=== PATIENT | male | born 1990 | race Two or more races ===

== ENCOUNTER 2021-08-20 21:10 | Emergency (ER) | payer MEDICARE, SELFPAY ==
[2021-08-20 21:24] VITALS: BP 112/70; BP 132/77; PULSE 84; PULSE 90; RESP 16; TEMP 36.5; O2SAT 96; BMI 30.5
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
[2021-08-20] MEDS: Naloxone HCl Nasal TAKE HOME 4 MG SPRAY NOSTRILALT (21:47)
== END 2021-08-20 21:47 | disposition home or self-care (01) ==
LOC: HO.ED 21:42
PROVIDERS: Emergency Provider Internal Medicine
DX: T40.1X1A Poisoning by heroin, accidental (unintentional), initial encounter (principal); Y92.9 Unspecified place or not applicable; F11.19 Opioid abuse with unspecified opioid-induced disorder; Z71.51 Drug abuse counseling and surveillance of drug abuser
CPT/HCPCS: 99284; 99285

== ENCOUNTER 2022-02-04 03:51 | Emergency (ER) | payer MEDICARE, SELFPAY ==
--- NOTE | ~2022-02-04 | CT_ITS ---
EXAMINATION: CT HEAD WITHOUT CONTRAST CLINICAL INFORMATION: Forehead hematoma with abrasion. COMPARISON: Head CT scan dated 03/02/2019. TECHNIQUE: Contiguous axial imaging was performed from the skull base to vertex without intravenous administration of contrast. Coronal and sagittal reformatted images were obtained. This CT examination was performed using dose optimization techniques as appropriate, variously including the following: *Automated exposure control *Adjustment of mA and/or kV according to patient size (this includes techniques or standardized protocols for targeted exams where dose is matched to indication/reason for exam; i.e. extremities or head) *Use of iterative reconstruction technique DLP: 818 mGy-cm FINDINGS: The cortical sulci are normal. The lateral ventricles are symmetrical. The third and fourth ventricles are in their normal midline position. The basilar and prepontine cisterns are unremarkable. There is no acute intra or extracerebral abnormality. There is no mass effect or midline shift. Sections through the bony calvarium and facial bones show chronic posttraumatic/surgical changes without definitive acute abnormality. The paranasal sinuses show mild to moderate mucosal thickening in the visualized ethmoid sinuses. There is a small air-fluid level in the visualized left maxillary sinus. Sphenoid sinuses are clear. The bony orbits and orbital contents are unremarkable. Moderate anterior nasal septal deviation, apex of the right. CT/CT head/brain wo IV con IMPRESSION: 1. No acute intracranial pathology. 2. Chronic posttraumatic postsurgical changes in the facial bones without definitive acute abnormality. 3. Mild to moderate inflammatory changes in the visualized paranasal sinuses as detailed above
[2022-02-04 04:06] VITALS: BP 139/90; BP 140/89; PULSE 88; PULSE 97; RESP 16; TEMP 36.7; O2SAT 99; BMI 32.1
[2022-02-04 07:12] VITALS: BP 143/93; PULSE 61; RESP 16; TEMP 36.6
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
--- NOTE | 2022-02-04 08:22 | PC.NURSE ---
pt very drowsy as well, awakes to very loud voice command and some painful stimuli, pt does have a large hematoma/abrasion to the middle of the forehead. pt denies drug use but states only using marijuana but when pt was changed over into hospital attire heroin and numerous different pills where found on the pt. pt is in police custody and the police is asking not to toss the paraphernalia that they need it.
[2022-02-04 10:52] VITALS: BP 117/78; PULSE 69; RESP 16; O2SAT 97
[2022-02-04] MEDS: Bacitracin Oint 14 GM TUBE 1 APPL TOPICAL (11:24)
--- NOTE | 2022-02-04 12:42 | PC.NURSE ---
pt discharged in police custody.
== END 2022-02-04 12:45 ==
PROVIDERS: Emergency Provider Emergency Medicine Emergency Medical Services
DX: R51.9 Headache, unspecified (principal); R07.89 Other chest pain; F11.10 Opioid abuse, uncomplicated
CPT/HCPCS: 70450; 99284

== ENCOUNTER 2023-02-04 14:36 | Inpatient (IN) | payer MEDICARE, SELFPAY ==
[2023-02-04] VITALS (21 sets, daily range): BP systolic 91–190; BP diastolic 57–123; PULSE 100–156; RESP 22–46; TEMP 31.1–38; O2SAT 78–95; BMI 39.5; BMI 41.4
--- NOTE | 2023-02-04 | ECG_ITS ---
Test Reason : tachycardia Blood Pressure : / mmHG Vent. Rate : 128 BPM Atrial Rate : 128 BPM P-R Int : 134 ms QRS Dur : 082 ms QT Int : 306 ms P-R-T Axes : 066 073 013 degrees QTc Int : 446 ms Sinus tachycardia Otherwise normal ECG No previous ECGs available Referred By: Shruthi Brito Electronically Signed By:HANNAH VILLA
--- NOTE | ~2023-02-04 | XR_ITS ---
EXAMINATION: XR CHEST CLINICAL INFORMATION: Hypoxia. COMPARISON: Chest radiograph 02/04/2023. TECHNIQUE: Frontal view of the chest was obtained. FINDINGS: The endotracheal tube terminates at 6 cm above the celeste. Enteric tube courses into the abdomen and terminates outside of the field of view. Unchanged cardiomediastinal silhouette. Increased focal airspace opacities projecting over the right middle/lower lung. No pleural effusion or pneumothorax. No acute osseous findings. Visualized upper abdomen is within normal limits. XR/XR chest 1V IMPRESSION: 1. The endotracheal tube terminates at 6 cm above the celeste. Recommend repositioning. 2. Increased focal airspace opacities in the right middle/lower lung, concerning for aspiration, pneumonia or atelectasis. The report will be called to the ordering clinician by a [facility] Physician Brand Communications Manager.
--- NOTE | ~2023-02-04 | XR_ITS ---
EXAMINATION: XR CHEST CLINICAL INFORMATION: Post cardiac arrest COMPARISON: Previous day TECHNIQUE: Frontal view of the chest was obtained. FINDINGS: Endotracheal tube terminates 2.9 cm above the celeste. Enteric tube courses through the stomach. Diffuse bilateral patchy airspace opacities predominating in the lower lungs bilaterally with improving aeration compared to prior. No pleural effusion or pneumothorax. Normal heart size. Pulmonary venous congestion. No acute osseous abnormalities. XR/XR chest 1V IMPRESSION: * Endotracheal tube terminates 2.9 cm above the celeste. * Diffuse bilateral patchy airspace opacities with improving aeration compared to prior.
--- NOTE | ~2023-02-04 | XR_ITS ---
EXAMINATION: XR CHEST CLINICAL INFORMATION: Endotracheal tube placement COMPARISON: Chest radiograph 02/05/2023 2:15 PM TECHNIQUE: Frontal view of the chest was obtained. FINDINGS: An endotracheal tube terminates 3 cm superior to the celeste. Enteric tube courses in projection with the stomach and terminates in the region of the proximal stomach. Low lung volumes are present. No pneumothoraces visualized. Right pulmonary base focal airspace opacity is again noted. Mild left base airspace opacity is newly identified with obscuration of the left hemidiaphragmatic margin. The heart size is normal. XR/XR chest 1V IMPRESSION: 1. Endotracheal tube terminating 3 cm superior to the celeste. 2. Enteric tube terminating within the proximal stomach. 3. Low lung volumes. 4. Right base airspace disease unchanged compared with 02/05/2023 2:15 PM. Newly identified left base airspace disease which may represent atelectasis.
--- NOTE | ~2023-02-04 | XR_ITS ---
EXAMINATION: XR CHEST CLINICAL INFORMATION: Hypoxia COMPARISON: Chest x-ray February 10, 2023 TECHNIQUE: Frontal portable view of the chest was obtained. 1234 hours FINDINGS: Tubes and lines: 1. Endotracheal tube 4 cm both celeste. 2. Enteric catheter passes below diaphragm into the stomach. Catheter tip below lower margin of the film. 3. EKG leads over the chest. There is artifact over the chest from the [place] mat. Patchy parenchymal airspace opacities in the lungs bilaterally similar severity February 10, 2023 chest x-ray. XR/XR chest 1V IMPRESSION: 1. Endotracheal tube 4 cm both celeste. 2. Enteric catheter passes below diaphragm into the stomach. Catheter tip below lower margin of the film. 3. Persistent patchy bilateral airspace opacities.
--- NOTE | ~2023-02-04 | XR_ITS ---
EXAMINATION: XR CHEST CLINICAL INFORMATION: Dialysis catheter placement COMPARISON: Chest 02/13/2023. TECHNIQUE: Frontal view of the chest was obtained. FINDINGS: There is a new right dialysis catheter its tip in upper mediastinum. Endotracheal tube is 3.7 cm above the celeste. Enteric tube tip is below diaphragm. The lungs are expanded with patchy opacities in both lung bases similar to previous study. Heart size and pulmonary vascularity is normal. No gross bony abnormality. XR/XR chest 1V IMPRESSION: 1. New right dialysis catheter tip is in right upper mediastinum. 2. No change in the endotracheal tube and enteric tube. 3. No change in bibasilar patchy opacities.
--- NOTE | ~2023-02-04 | XR_ITS ---
EXAMINATION: XR CHEST CLINICAL INFORMATION: Line placement COMPARISON: Chest radiograph from 02/09/2023 TECHNIQUE: Frontal view of the chest was obtained. FINDINGS: Interval placement of enteric tube coursing below left hemidiaphragm terminating in the stomach, its distal tip is incompletely visualized. Endotracheal tube approximately 3.7 cm from the level of the celeste. Right chest wall pacer pad. Redemonstration of patchy radiopacities in the visualized portions of the bilateral lung padgett. Bilateral lung apices are incompletely visualized. No large pneumothorax. Trachea is midline. Cardiac mediastinal silhouette is stable. Osseous structures are intact. Soft tissues are unremarkable. XR/XR chest 1V IMPRESSION: 1. Interval placement of enteric tube coursing below left hemidiaphragm terminating in the stomach, its distal tip is incompletely visualized. 2. Endotracheal tube approximately 3.7 cm from the level of the celeste. 3. Right chest wall pacer pad. 4. Redemonstration of patchy radiopacities in the visualized portions of the bilateral lung padgett. 5. Bilateral lung apices are incompletely visualized.
--- NOTE | ~2023-02-04 | US_ITS ---
EXAMINATION: US VENOUS WITH DOPPLER UPPER EXTREMITY, RIGHT CLINICAL INFORMATION: Swelling COMPARISON: None available. TECHNIQUE: Ultrasound of the upper extremity is performed using compression sonography and color and pulse Doppler flow with assessment of augmentation of flow. There is also imaging and Doppler assessment of the jugular and subclavian veins. Spectral analysis with color-flow imaging is performed. FINDINGS: The right internal jugular, subclavian, axillary and radial and ulnar veins in the forearm are patent. There is no evidence of DVT. There is superficial thrombophlebitis in the cephalic and basilic veins. There is nearly occlusive thrombus in the basilic vein and occlusive thrombus in the cephalic vein. US/US venous duplex UE RT IMPRESSION: No DVT demonstrated in the right upper extremity. Extensive superficial thrombophlebitis of right cephalic and basilic veins. Findings will be communicated by the [facility] ground water technician
--- NOTE | ~2023-02-04 | CT_ITS ---
EXAMINATION: CT HEAD WITHOUT CONTRAST CT FACIAL BONES WITHOUT CONTRAST CT CERVICAL SPINE WITHOUT CONTRAST CLINICAL INFORMATION: Fall with pain. Trauma. COMPARISON: There are no prior studies available for comparison. TECHNIQUE: Multidetector CT imaging of the head, facial bones and cervical spine was performed without the use of intravenous contrast. Coronal and sagittal reformatted images were generated at the technologist workstation. DLP: 2550 mGy-cm. FINDINGS: CT head: There is no evidence of acute intracranial hemorrhage or territorial infarction. No abnormal mass-effect or midline shift is seen. [place] to white matter differentiation is well preserved. No extra-axial fluid collections are identified. The ventricles and sulci normal in size. Brain parenchymal attenuation is unremarkable. There is slight irregularity of the nasal bones, and there are slightly deviated to the left. There are sequelae of prior bifrontal craniotomies. There is a bony defect in the anterior frontal bone superior to the frontal sinuses; these findings appear chronic. There are no large scalp contusions or hematomas. The mastoid air cells are well-aerated. There is mucoperiosteal thickening in the left maxillary and right ethmoid sinuses. CT facial bones: There is no acute maxillofacial fracture. The mandible and mandibular condyles are intact. The pterygoid plates, zygomatic arches and lamina papyracea are intact. The bony orbital rims are intact. The nasal bones are deviated to the right, without significant soft tissue swelling and these findings may be sequelae of remote trauma. There is opacification of the left maxillary and right ethmoid sinuses. No air-fluid levels are seen. There is opacification of the ostiomeatal complexes. There is a sigmoid configuration of the nasal septum, deviated to the right superior anteriorly and toward the left more posteriorly and inferiorly. There is a moderate left-sided bony nasal septal spur. The ethmoid roofs are symmetric. The carotid canals are normally covered by bone. There is a severely carious right maxillary 1st premolar tooth with periapical and periodontal disease. No dental fractures are demonstrated. There are small lymph nodes at multiple levels in the neck bilaterally. Otherwise, the malar, submandibular and submental soft tissues are unremarkable. The mastoid air cells and visualized middle ear cavities are well-aerated. The intraorbital structures are normal. The TMJs are unremarkable. CT cervical spine: Images are degraded by patient motion artifact. There is a dextroscoliosis. There is straightening of the cervical lordosis which may be due to positioning or muscle spasm. There is normal alignment of the facets. There is mild narrowing of intervertebral disc height anteriorly at C5-C6. There are no compression fractures. The lateral masses of C1 and C2 are normally aligned and the dens is intact. The visualized lung apices are well-aerated. The prevertebral soft tissues are unremarkable. The thyroid gland appears normal. CT/CT cervical spine wo IV con IMPRESSION: CT Head: 1. There are no acute bleeds or territorial infarcts. No masses are demonstrated. 2. There are sequelae of prior bifrontal craniotomies. There is a bony defect in the anterior frontal bone superior to the frontal sinuses, consistent with postoperative changes. CT Maxillofacial: 1. There are no acute fractures or subluxations. There is irregularity of the nasal bones, most consistent with sequelae of chronic trauma. 2. There is opacification of the left maxillary and right ethmoid sinuses. 3. There is a sigmoid configuration of the nasal septum with a left-sided bony nasal septal spur. CT Cervical Spine: 1. There are no acute fractures or subluxations. 2. There is straightening of the cervical lordosis which may be due to positioning or muscle spasm. 3. There is mild narrowing of intervertebral disc height at C5-C6.
--- NOTE | ~2023-02-04 | CT_ITS ---
EXAMINATION: CT abdomen pelvis wo IV con CLINICAL INFORMATION: Reason for Exam BACTEREMIA RENAL FAILURE, CIRRHOSIS COMPARISON: Prior CT 2008 TECHNIQUE: Multidetector volumetric imaging was performed from the superior aspect of the liver through the pubic symphysis , noncontrasted study. Sagittal and coronal reformatted images were obtained on the technologist's workstation. This CT examination was performed using dose optimization techniques as appropriate, variously including the following: *Automated exposure control *Adjustment of mA and/or kV according to patient size (this includes techniques or standardized protocols for targeted exams where dose is matched to indication/reason for exam; i.e. extremities or head) *Use of iterative reconstruction technique DLP: 2758 mGy-cm FINDINGS: LOWER THORAX: There are bilateral multiple areas of dense consolidation at the lung bases left more than right presumably pneumonia. No significant pleural effusion. HEPATOBILIARY: Heterogeneous liver texture with nodular surface suggesting liver parenchymal disease possibly liver cirrhosis. Evaluation of the liver is limited on this noncontrast CT. GALLBLADDER: Gallbladder unremarkable. SPLEEN: Spleen is normal in size. PANCREAS: No focal mass or ductal dilatation. STOMACH AND GASTROINTESTINAL TRACT: Nasogastric tube and place. There is no bowel distention or thickening. Appendix not visualized, no secondary signs in the abdomen and pelvis to suggest appendicitis. There is a rectal tube in place. ADRENALS: No adrenal nodules. KIDNEYS/URETERS: Mild perinephric fat stranding on the left kidney, although nonspecific could be indicative of underlying nephritis. URINARY BLADDER: Urinary bladder is decompressed unopacified, the wall of which is thickened, there is also free air within the bladder, which could be from instrumentation, cannot rule out cystitis. PELVIC VISCERA: There is a balloon catheter in the rectum. PERITONEUM: No free air or fluid. LYMPH NODES: No lymphadenopathy. VASCULAR:Abdominal aorta normal in size, no aneurysm found. BONES, ABDOMINAL WALL AND SOFT TISSUES: Age-appropriate changes of the spine and skeletal system, no destructive osteolytic or osteosclerotic bone lesion found CT/CT abdomen pelvis wo IV con IMPRESSION: * Bilateral patchy consolidation with air bronchogram at lung bases suggesting pneumonias. * Mild perinephric fat stranding surrounding the left kidney, although nonspecific could be indicative of underlying nephritis, assessment for possible renal abscess is limited due to lack of IV contrast.. * Urinary bladder is decompressed, the wall of which is thickened, there is also free air within the bladder, which could be from instrumentation, cannot rule out cystitis. * Heterogeneous liver texture with nodular surface suggesting liver parenchymal disease possibly liver cirrhosis. This critical result was discussed with Dr Anthony Taylor by telephone at 02/17/2023 7:36 PM and it was ascertained that the content and urgency of the report was understood at the time of direct communication.
--- NOTE | ~2023-02-04 | XR_ITS ---
EXAMINATION: XR CHEST CLINICAL INFORMATION: CVC placement COMPARISON: CT chest earlier today, Chest radiograph 02/13/2023 TECHNIQUE: Frontal view of the chest was obtained. FINDINGS: Diffuse interstitial infiltrates are again seen throughout the lungs. The heart is mildly enlarged. Small pleural effusions may be present. ET tube present with tip 3.5 cm above the celeste. A right IJ catheter remains in place with its tip in the proximal SVC. The prior studies, a new left IJ catheter is present with its tip in the proximal right atrium. An NG tube has its tip below the diaphragm, the tip not well seen. XR/XR chest 1V IMPRESSION: 1. New left IJ catheter with tip in the proximal right atrium. No pneumothorax. 2. ET tube and right IJ catheter in good position. 3. Diffuse interstitial infiltrates without change.
--- NOTE | ~2023-02-04 | CT_ITS ---
EXAMINATION: CT HEAD WITHOUT CONTRAST CLINICAL INFORMATION: Encephalopathy. COMPARISON: 02/04/2023 TECHNIQUE: Contiguous axial imaging was performed from the skull base to vertex without intravenous administration of contrast. This CT examination was performed using dose optimization techniques as appropriate, variously including the following: *Automated exposure control *Adjustment of mA and/or kV according to patient size (this includes techniques or standardized protocols for targeted exams where dose is matched to indication/reason for exam; i.e. extremities or head) *Use of iterative reconstruction technique DLP: 973.2 mGy-cm FINDINGS: The lateral, third and fourth ventricles are normally outlined. The cortical sulci and basal cisterns are normally outlined as well. There is no acute territorial defect, hemorrhage or midline shift. The extra-axial spaces are unremarkable. Calvarium: A frontal craniotomy is again noted with multiple inferior frontal bone fragments similar to prior. Maxillofacial sinuses and mastoids: There is bilateral mastoid opacification. There also appears to be bilateral right middle ear opacities. There is a lobular left maxillary sinus opacity and bilateral ethmoid sinus mucosal thickening. There is a small posterior sphenoid sinus opacity. The patient is intubated. There is a small upper nasopharyngeal opacity. CT/CT head/brain wo IV con IMPRESSION: No acute intracranial abnormality. Bilateral mastoid and apparent middle ear opacities essentially new compared to prior. Correlation for significance is needed.
--- NOTE | ~2023-02-04 | XR_ITS ---
EXAMINATION: XR CHEST CLINICAL INFORMATION: ETT placement. COMPARISON: None available. TECHNIQUE: Frontal view of the chest was obtained. FINDINGS: The lungs are hypoexpanded with patchy opacity seen throughout both lungs especially middle and lower lobes. This is better visualized on the earlier CT chest exam.. The heart size is normal. Pulmonary vascularity is slightly prominent. Tip of endotracheal tube is 4.7 cm above the celeste. XR/XR chest 1V IMPRESSION: 1. Bilateral patchy opacity in both lungs especially middle and lower lobes consistent with infiltrates. This is better visualized on earlier CT chest from today. 2. Tip of endotracheal tube is 4.7 cm above the celeste.
--- NOTE | ~2023-02-04 | CT_ITS ---
EXAMINATION: CT CHEST WITHOUT CONTRAST CLINICAL INFORMATION: Fever question pneumonia COMPARISON: None available. TECHNIQUE: Multidetector volumetric CT imaging of the chest was done. Axial MIP volume rendering provided. Sagittal and coronal reformatted images were obtained. This CT examination was performed using dose optimization techniques as appropriate, variously including the following: *Automated exposure control *Adjustment of mA and/or kV according to patient size (this includes techniques or standardized protocols for targeted exams where dose is matched to indication/reason for exam; i.e. extremities or head) *Use of iterative reconstruction technique DLP: 518 mGy-cm FINDINGS: LUNGS/PLEURA: Respiratory motion artifacts limits evaluation. Trace pneumothorax along the anterior aspect left lung. Groundglass and patchy consolidative radiopacities throughout the bilateral lung padgett suggesting infectious/inflammatory etiology versus ARDS. Evaluation for nodules is limited secondary to respiratory motion artifact. Endotracheal tube approximately 3.2 cm from the lung. Central airways are patent. No large pleural effusion. MEDIASTINUM: Heart is not enlarged. No pericardial effusion. Aorta is nonaneurysmal. Main pulmonary artery is not enlarged. No enlarged lymph nodes per size criteria. Right-sided central venous catheter via the internal jugular vein terminating in the proximal SVC. Enteric tube coursing through the thoracic esophagus terminating in the stomach. No coronary artery calcifications noted. Visualized portions of the thyroid are unremarkable. AXILLA: No lymphadenopathy. UPPER ABDOMEN: Enteric tube terminates in the stomach. Splenule measuring 1.6 cm. OSSEOUS STRUCTURES: Unremarkable. CT/CT chest wo IV con IMPRESSION: 1. Respiratory motion artifacts limits evaluation. 2. Trace pneumothorax along the anterior aspect left lung. 3. Groundglass and patchy consolidative radiopacities throughout the bilateral lung padgett suggesting infectious/inflammatory etiology versus ARDS. 4. Endotracheal tube approximately 3.2 cm from the lung. 5. Right-sided central venous catheter via the internal jugular vein terminating in the proximal SVC. 6. Enteric tube coursing through the thoracic esophagus terminating in the stomach. 7. Splenule measuring 1.6 cm. This critical result was discussed with Cristina Ochoa by telephone on 02/16/2023 4:40 PM and it was ascertained that the content and urgency of the report was understood at the time of direct communication.
--- NOTE | ~2023-02-04 | XR_ITS ---
EXAMINATION: XR CHEST CLINICAL INFORMATION: Intubated COMPARISON: Previous day TECHNIQUE: Frontal view of the chest was obtained. FINDINGS: The tracheal tube terminates 7.5 cm above the celeste. Right internal jugular central venous introducer terminates in the distal right brachiocephalic vein. Left internal jugular central venous catheter terminates in the mid SVC. No appreciable pneumothorax on the current exam. Persistent patchy opacities throughout both lungs particularly at the left lung base showing interval improvement. No large pleural effusion. Normal cardiomediastinal silhouette. XR/XR chest 1V IMPRESSION: * Endotracheal tube terminates 7.5 cm above the celeste. * Improving bilateral airspace opacities. * No appreciable pneumothorax on the current exam.
--- NOTE | ~2023-02-04 | CT_ITS ---
EXAMINATION: CT CHEST WITH CONTRAST CLINICAL INFORMATION: Fall, chest trauma. COMPARISON: None available. TECHNIQUE: Multidetector volumetric CT imaging of the chest was obtained after the administration of 50 mL of Omnipaque 350 intravenous contrast without immediate adverse reactions. Axial MIP volume rendering provided. Sagittal and coronal reformatted images were obtained. This CT examination was performed using dose optimization techniques as appropriate, variously including the following: *Automated exposure control *Adjustment of mA and/or kV according to patient size (this includes techniques or standardized protocols for targeted exams where dose is matched to indication/reason for exam; i.e. extremities or head) *Use of iterative reconstruction technique DLP: 1431 mGy-cm FINDINGS: There is continues breathing artifact limiting evaluation. 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 LUNGS: There is diffuse airspace disease involving both lower lobes, upper lobes, right middle lobe and lingula. MEDIASTINUM: The thyroid lobes are symmetric and normal. The central trachea and bronchi are widely patent. The heart size and great vessels are normal caliber. No abnormal size mediastinal lymph nodes or mass seen. There is no pericardial effusion. PLEURA: There is no pleural effusion. No pleural mass or thickening. AXILLA: No lymphadenopathy. UPPER ABDOMEN: Visualized liver, spleen, pancreas and bilateral adrenal glands are unremarkable. OSSEOUS STRUCTURES: Unremarkable. CT/CT chest w IV con IMPRESSION: Multilobar bilateral infiltrates. Fleischner guidelines were followed.
--- NOTE | ~2023-02-04 | XR_ITS ---
EXAMINATION: XR CHEST 9:21 AM CLINICAL INFORMATION: Hypoxia COMPARISON: 02/06/2023 TECHNIQUE: AP portable upright view of the chest was obtained. FINDINGS: Since the prior examination, endotracheal tube and nasogastric tube have been removed. There are newly developed bilateral fluffy airspace opacities. No pleural effusions are detected. The cardiac silhouette is magnified by the AP position. XR/XR chest 1V IMPRESSION: 1. Interval extubation with newly developed fluffy bilateral airspace opacities. Reexpansion pulmonary edema, ARDS, pulmonary hemorrhage, bilateral pneumonia are to be considered.
--- NOTE | ~2023-02-04 | XR_ITS ---
EXAMINATION: XR CHEST CLINICAL INFORMATION: Hypoxia COMPARISON: 11/12/2022 TECHNIQUE: Frontal view of the chest was obtained. FINDINGS: ET tube present 3.6 cm above the celeste. NG tube with its tip below the diaphragm beyond the field. Diffuse airspace disease is present, slightly worse when compared to the prior study. No pneumothorax. Small pleural effusions could be present. XR/XR chest 1V IMPRESSION: ET tube 3.6 cm above the celeste. Slight worsening of diffuse airspace disease.
--- NOTE | ~2023-02-04 | XR_ITS ---
EXAMINATION: XR CHEST CLINICAL INFORMATION: Assess pneumothorax COMPARISON: Previous x-ray most recent from yesterday TECHNIQUE: Frontal view of the chest was obtained. FINDINGS: Right jugular line projects over SVC. Left jugular line projects over SVC. Endotracheal tube tip 3 cm above the celeste. These gastric tube projects over stomach, tip not seen. Bilateral multilobar Airspace disease probably representing pneumonia. Question small left pneumothorax overlying the posterior third rib. No pleural effusion. XR/XR chest 1V IMPRESSION: Satisfactory position of support line and tubes. Question Small left pneumothorax. No change in bilateral multilobar airspace disease.
--- NOTE | ~2023-02-04 | XR_ITS ---
EXAMINATION: XR CHEST CLINICAL INFORMATION: Intubation, decreased oxygenation COMPARISON: Earlier on 02/09/2023 TECHNIQUE: Frontal view of the chest was obtained. FINDINGS: The tip of an endotracheal tube is in the midthoracic trachea. Bilateral fluffy airspace opacities are becoming more confluent in the mid and lower lung zones and the left upper lung zone. The cardiac silhouette is magnified by the AP position. XR/XR chest 1V IMPRESSION: 1. Endotracheal tube in the midthoracic trachea. 2. Increased confluence of bilateral airspace opacities, either on the basis of pulmonary edema, ARDS, bilateral pneumonia, hemorrhage, etc.
[2023-02-04] MEDS: LORazepam 2 MG/ML VIAL IVPUSH ×3 (14:58→18:12)
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
[2023-02-04] MEDS: Midazolam HCl/PF 2 MG/2 ML VIAL 4 MG IVPUSH (15:05)
[2023-02-04] MEDS: levETIRAcetam in NaCl (iso-os) 1,500 MG/100 ML PIGGYBACK 400 MG IV (15:20)
[2023-02-04 15:39] LABS: MANUAL DIFF FLAG NO
[2023-02-04 15:43] LABS: Basophils Percent Auto 0.1 % (0-2); Hematocrit 46.2 % (42.0-52.0); Imm Gran Abs Auto 0.14 X10*3/uL (0.00-0.03); Imm Gran Pct Auto 0.7 % (0.0-0.4); Lymphocytes Absolute Auto 1.4 X10*3/uL (1.2-4.9); Lymphocytes Percent Auto 6.9 % (20-40); Mean Corpuscular HGB Conc 32.5 g/dl (31.0-36.0); Mean Corpuscular Hemoglobin 27.9 pg (27.0-33.0); Mean Corpuscular Volume 85.9 fL (80.0-98.0); Mean Platelet Volume 8.9 fL (9.4-12.4); Monocytes Absolute Auto 0.9 X10*3/uL (0.1-1.2); Monocytes Percent Auto 4.2 % (2-11); Neutrophils Absolute Auto 18.3 x10*3/uL (2.0-8.3); Neutrophils Percent Auto 88.1 % (45-73); Platelet Count 236 X10*3/uL (160-400); Red Blood Count 5.38 X10*6/uL (4.60-5.80); Red Cell Distribution Width 13.9 % (11.0-16.0); White Blood Count 20.8 X10*3/uL (4.8-10.8)
[2023-02-04 15:47] LABS: INTERNATIONAL NORM RATIO 1.2 (0.9-1.1); Prothrombin Time 14.7 SEC (11.1-13.3)
[2023-02-04] MEDS: Haloperidol Lactate 5 MG/ML VIAL IM (15:50)
[2023-02-04 15:56] LABS: Lactic Acid 6.2 mmol/L (0.5-2.0)
[2023-02-04 16:01] LABS: Alanine Aminotransferase 1316 U/L (0-40); Albumin Level 4.5 g/dL (3.5-5.0); Alkaline Phosphatase 92 U/L (39-117); Anion Gap 21 (12-20); Aspartate Amino Transferase 2181 U/L (5-37); Bilirubin Total 0.6 mg/dL (0.0-1.0); Blood Urea Nitrogen 31 mg/dL (9-16); Calcium 8.7 mg/dL (8.4-10.2); Carbon Dioxide 21 mmol/L (22-29); Chloride 103 mmol/L (96-108); Creatinine Clr Calc Pharmacy 39.5; Estimated Glomerular Filt Rate 20; Glucose Random 101 mg/dL (60-115); Magnesium 2.5 mg/dL (1.6-2.6); Potassium 5.1 mmol/L (3.3-5.1); Sodium 140 mmol/L (135-145); Total Protein 7.9 g/dL (6.5-8.0)
[2023-02-04] MEDS: iohexoL 350 MG/ML 100 ML INFUS..BTL IV (16:15)
[2023-02-04] MEDS: 0.9 % Sodium Chloride 1,000 ML 999 ML IV ×2 (16:19→19:55)
[2023-02-04 16:36] LABS: Ethanol < 10 mg/dL
[2023-02-04] MEDS: cefTRIAXone sodium 1 GM in 0.9 % Sodium Chloride 50 ML IV (16:36)
[2023-02-04 16:44] LABS: VBG Base Excess -4.7 mmol/L; VBG HCO3 20 mmol/L (22-26); VBG pCO2 36 mmHg; VBG pH 7.35 (7.32-7.43); VBG pO2 56 mmHg
[2023-02-04 16:44] LABS: Venous Blood Gas Refer to POC result
[2023-02-04 17:37] LABS: Reflex Lactate? Lactic Acid Added
--- NOTE | 2023-02-04 17:57 | PC.NURSE ---
placed in soft restraints for agitation, pulling at leads.. pt remains obtunded, unable to follow instructions, PERRLA. airway obstructed, with occasional episodes of apnea. nasal trumpet in place beneath NRB. Sinus tach on monitor. waiting on bicarb from pharm.
[2023-02-04] MEDS: Etomidate 20 MG/10 ML VIAL IVPUSH (18:30)
[2023-02-04] MEDS: Rocuronium Bromide 50 MG/5 ML VIAL IVPUSH (18:30)
--- NOTE | 2023-02-04 18:30 | PC.NURSE ---
PT INTUBATED 20MG ETO, 50MG GIOVANNI. + COLOUR CHANGE, 25 @LIP 7.5 ET TUBE WITH CXR CONFIRMATION FOR PLACEMENT.
[2023-02-04] MEDS: propofoL 1,000 MG/100 ML VIAL 22.45 MG IVCONT (18:45)
[2023-02-04] MEDS: Piperacillin Sodium/Tazobactam 3.375 GM in 0.9 % Sodium Chloride 50 ML IV (19:05)
[2023-02-04] MEDS: Sodium Bicarbonate 8.4% 150 MEQ in Dextrose 5 % 850 ML 100 MEQ IV (19:05)
[2023-02-04] MEDS: fentaNYL citrate/PF 100 MCG/2 ML VIAL IVPUSH (19:20)
--- NOTE | 2023-02-04 19:34 | PHA.MEDREC ---
Pharmacy Consult ? Medication Reconciliation Pharmacy has completed the medication reconciliation. Med rec completed by claim history. Family member reported patient on seizure med and suboxone. Suboxone has not been filled since september per PDMP therefore I did not include in list. Keppra has not been filled since 11/27/22. I left in the list as it was report by family member and patient may not be adherent to medications. Jojo Mccrary, PharmD
[2023-02-04 19:46] LABS: Basophils Percent Auto 0.2 % (0-2); Hematocrit 41.8 % (42.0-52.0); Hemoglobin 13.4 g/dl (14.0-18.0); Imm Gran Abs Auto 0.05 X10*3/uL (0.00-0.03); Imm Gran Pct Auto 0.3 % (0.0-0.4); Lymphocytes Percent Auto 5.9 % (20-40); MANUAL DIFF FLAG SCAN; Mean Corpuscular HGB Conc 32.1 g/dl (31.0-36.0); Mean Corpuscular Hemoglobin 27.8 pg (27.0-33.0); Mean Corpuscular Volume 86.7 fL (80.0-98.0); Mean Platelet Volume 9.2 fL (9.4-12.4); Monocytes Absolute Auto 0.5 X10*3/uL (0.1-1.2); Neutrophils Absolute Auto 15.2 x10*3/uL (2.0-8.3); Neutrophils Percent Auto 90.6 % (45-73); Platelet Count 174 X10*3/uL (160-400); Red Blood Count 4.82 X10*6/uL (4.60-5.80); SCAN SMEAR FLAG 1; White Blood Count 16.8 X10*3/uL (4.8-10.8)
[2023-02-04 20:00] LABS: ~Lactic Acid-LAB USE ONLY 2.8 mmol/L (0.5-2.0)
[2023-02-04 20:02] LABS: Alanine Aminotransferase 1156 U/L (0-40); Albumin Level 3.8 g/dL (3.5-5.0); Alkaline Phosphatase 81 U/L (39-117); Anion Gap 19 (12-20); Aspartate Amino Transferase 2587 U/L (5-37); Bilirubin Total 0.6 mg/dL (0.0-1.0); Blood Urea Nitrogen 34 mg/dL (9-16); Calcium 7.5 mg/dL (8.4-10.2); Carbon Dioxide 21 mmol/L (22-29); Chloride 109 mmol/L (96-108); Creatinine Clr Calc Pharmacy 38.6; Estimated Glomerular Filt Rate 20; Glucose Random 116 mg/dL (60-115); Potassium 5.7 mmol/L (3.3-5.1); Sodium 143 mmol/L (135-145); Total Protein 6.7 g/dL (6.5-8.0)
[2023-02-04 20:06] LABS: SLIDE REVIEW VERIFIED
[2023-02-04 20:15] LABS: Amphetamine Screen Urine Not Detected (Not Detect); Barbiturates, Urine Not Detected (Not Detect); Benzodiazepines Screen Urine POSITIVE (Not Detect); Cannabinoid Screen Urine POSITIVE (Not Detect); Cocaine Screen Urine POSITIVE (Not Detect); Fentanyl, urine POSITIVE (Not Detect); Opiate Screen Urine Not Detected (Not Detect); Phencyclidine Screen Urine Not Detected (Not Detect)
--- NOTE | 2023-02-04 20:45 | PC.NURSE ---
PEEP INCREASED TO 10 GIVEN SPO2 85% ON 100%FIO2.
--- NOTE | 2023-02-04 21:08 | P.HPCC_ITS ---
History of Present Illness Date of Service: 02/04/23 Attending physician on admission: Heraclio Marie Chief Complaint: Acute Renal Failure due to Rhabdomylosis Mr. Reynoso is a 32-year-old male with a history of epilepsy, childhood trauma, metal plate in frontal area of head, substance abuse who was brought to the emergency department by EMS with altered mental status after family found him on the ground unresponsive. He was given narcan in the field. According to the family, he was incarcerated and released to a program for detox from alcohol 6 months ago. He was released from detox 2 days ago.? On arrival to the ER the patient was incontinent, unable to answer questions, restless but maintaining his airway.? Down time unknown. On arrival to the ER his blood pressure was 126/108, heart rate 140, temp 98.0 degrees, respiratory rate 40 with SpO2 78% on room air.? Laboratory data significant for? WBC 20.8,? anion gap 21, BUN 31, creatinine 3.52, lactic acid 6.2, AST 2181,? ALT 1316,[place] [address],? urine drug screen? positive for fentanyl, benzos, cocaine, marijuana. Imaging: CT HEAD WITHOUT CONTRAST CT FACIAL BONES WITHOUT CONTRAST CT CERVICAL SPINE WITHOUT CONTRAST CT CHEST WITH CONTRAST IMPRESSION: CT Head: 1. There are no acute bleeds or territorial infarcts. No masses are demonstrated. 2. There are sequelae of prior bifrontal craniotomies. There is a bony defect in the anterior frontal bone superior to the frontal sinuses, consistent with postoperative changes. CT Maxillofacial: 1. There are no acute fractures or subluxations. There is irregularity of the nasal bones, most consistent with sequelae of chronic trauma. 2. There is opacification of the left maxillary and right ethmoid sinuses. 3. There is a sigmoid configuration of the nasal septum with a left-sided bony nasal septal spur. CT Cervical Spine: 1. There are no acute fractures or subluxations. 2. There is straightening of the cervical lordosis which may be due to positioning or muscle spasm. 3. There is mild narrowing of intervertebral disc height at C5-C6. CT/CT chest w IV con Multilobar bilateral infiltrates.?? ED course: The patient received a total of? 4.7 L of fluids, 1500 mg Keppra, 3.375 g of Zosyn, 1 g ceftriaxone, Lorazepam, diphenhydramine, midazolam, and Haldol. He remained restless and agitated. He was intubated; CT of Chest, face, spine were obtained. Repeat lactic 2.8, mild improvement in leukocytosis to 16.8.? Review of Systems 2 Review of Systems: Yes unobtainable due to endotracheal tube and Unobtainable due to mental condition PMFSH Social History Social History Unable to assess alcohol history related to: Unable to respond Advance Directives: No Advance Directives Information Provided: Yes Meds Allergies Allergy/AdvReac Type Severity Reaction Status Date / Time Unable to Assess Allergy Unverified 02/04/23 14:54 Active Medications: Current Medications Heparin Sodium (Porcine) (Heparin Sodium,Porcine 5,000 Unit/Ml Vial) 5,000 unit SUBCUT Q[facility]H [facility] Sodium Bicarbonate 150 meq/ (Dextrose) 1,000 mls @ 100 mls/hr IV .Q10H [facility] Last Admin: 02/04/23 19:05 Dose: 100 mls/hr Propofol (Diprivan) 1,000 mg in 100 mls @ 0 mls/hr IVCONT .Q0M [facility]; Protocol Last Titration: 02/04/23 19:15 Dose: 50 mcg/kg/min, 37.42 mls/hr Pantoprazole Sodium 40 mg/ (Sodium Chloride) 110 mls @ 400 mls/hr IV DAILY@0630 [facility] Lactated Ringer's (Lr) 1,000 mls @ 300 mls/hr IVCONT .Q3H20M [facility] Levetiracetam (Keppra) 1,000 mg in 100 mls @ 400 mls/hr IV Q12H [facility] Ampicillin Sodium/Sulbactam (Sodium 3 gm/ Sodium Chloride) 100 mls @ 200 mls/hr IV Q6H [facility] Home Medications Medication Instructions Recorded Confirmed Last Taken Type buspirone 15 mg tablet 15 mg PO TID 02/04/23 02/04/23 Unknown History clonidine HCl 0.1 mg tablet 0.1 mg PO BID 02/04/23 02/04/23 Unknown History diltiazem HCl 240 mg 240 mg PO DAILY 02/04/23 02/04/23 Unknown History capsule,extended release 24 hr levetiracetam 500 mg tablet 500 mg PO BID 02/04/23 02/04/23 Unknown History quetiapine 200 mg tablet 200 mg PO BEDTIME 02/04/23 02/04/23 Unknown History quetiapine 50 mg tablet 75 mg PO DAILY 02/04/23 02/04/23 Unknown History sertraline 50 mg tablet 150 mg PO DAILY 02/04/23 02/04/23 Unknown History trazodone 100 mg tablet 100 mg PO BEDTIME 02/04/23 02/04/23 Unknown History Physical Exam 2 Vital Signs: Vital Signs: Last Vital Signs Temp 99.6 F 02/04/23 20:58 Pulse 129 H 02/04/23 20:58 Resp 28 H 02/04/23 20:58 BP 91/64 02/04/23 20:58 Pulse Ox 90 L 02/04/23 20:58 O2 Del Method Mechanical Ventil ation 02/04/23 20:58 O2 Flow Rate 16 02/04/23 18:27 FiO2 100 02/04/23 20:58 BMI result Body Mass Index 39.5 Const: General: no acute distress Nutritional Appearance: obese HEENT: Head: Yes atraumatic and Yes other (forehead is asymmetrical: bony defect r/t past surgery) General nose exam: Normal external nose present (Nares patent, septum midline, sinuses nontender bilaterally.) Mouth: Normal oral and palatal mucosa present ( moist) Neck: Neck: Yes supple (no thyromegaly, trachea midline.) Carotids: normal carotid upstroke Resp: Auscultation: rhonchi throughout Cardio: Jugular venous distension: no JVD Rate: tachycardic Rhythm: r egular rhythm Heart sounds: no gallops, no murmurs and no rubs Peripheral pulses: Peripheral pulses 2+ throughout GI: Palpation (GI): Soft to palpation (nondistended.) and nontender Skin: General skin exam: no rashes or lesions noted Extrem: General: Yes full ROM, Yes capillary refill normal and Yes no clubbing, cyanosis or edema Results Labs 02/04/23 19:31 02/04/23 19:31 Labs: Laboratory Results - last 24 hr 02/04/23 02/04/23 02/04/23 15:32 16:38 16:56 MCV 85.9 MCH 27.9 MCHC 32.5 RDW 13.9 Plt Count 236 MPV 8.9 L Immature Gran % (Auto) 0.7 H Neut % (Auto) 88.1 H Lymph % (Auto) 6.9 L [place] % (Auto) 4.2 Eos % (Auto) 0.0 Baso % (Auto) 0.1 Lymph # (Auto) 1.4 [place] # (Auto) 0.9 Eos # (Auto) 0.0 Baso # (Auto) 0.0 Abs Immat Gran (auto) 0.14 H Absolute Neuts (auto) 18.3 H Absolute Nucleated RBC 0.000 Nucleated RBC % (auto) 0.0 Smear Tech's Comments PT 14.7 H INR 1.2 H VBG pH 7.35 VBG pCO2 36 VBG pO2 56 VBG HCO3 20 L VBG O2 Saturation 85.0 VBG Base Excess -4.7 Anion Gap 21 H Estim Creat Clear Calc 39.5 Estimated GFR 20 Random Glucose 101 Lactic Acid 6.2 H* Lactic Acid F/U @ 2Hr Calcium 8.7 Magnesium 2.5 Total Bilirubin 0.6 AST 2181 H ALT 1316 H Alkaline Phosphatase 92 Total Creatine Kinase 89675 H Total Protein 7.9 Albumin 4.5 Urine Opiates Screen Not Detected Urine Fentanyl Screen POSITIVE H Ur Barbiturates Screen Not Detected Ur Phencyclidine Scrn Not Detected Ur Amphetamines Screen Not Detected U Benzodiazepines Scrn POSITIVE H Urine Cocaine Screen POSITIVE H U Marijuana (THC) Screen POSITIVE H Ethyl Alcohol < 10 02/04/23 19:31 MCV 86.7 MCH 27.8 MCHC 32.1 RDW 14.0 Plt Count 174 D MPV 9.2 L Immature Gran % (Auto) 0.3 Neut % (Auto) 90.6 H Lymph % (Auto) 5.9 L [place] % (Auto) 3.0 Eos % (Auto) 0.0 Baso % (Auto) 0.2 Lymph # (Auto) 1.0 L [place] # (Auto) 0.5 Eos # (Auto) 0.0 Baso # (Auto) 0.0 Abs Immat Gran (auto) 0.05 H Absolute Neuts (auto) 15.2 H Absolute Nucleated RBC 0.000 Nucleated RBC % (auto) 0.0 Smear Tech's Comments VERIFIED PT INR VBG pH VBG pCO2 VBG pO2 VBG HCO3 VBG O2 Saturation VBG Base Excess Anion Gap 19 Estim Creat Clear Calc 38.6 Estimated GFR 20 Random Glucose 116 H Lactic Acid Lactic Acid F/U @ 2Hr 2.8 H* Calcium 7.5 L D Magnesium Total Bilirubin 0.6 AST 2587 H ALT 1156 H Alkaline Phosphatase 81 Total Creatine Kinase Total Protein 6.7 Albumin 3.8 Urine Opiates Screen Urine Fentanyl Screen Ur Barbiturates Screen Ur Phencyclidine Scrn Ur Amphetamines Screen U Benzodiazepines Scrn Urine Cocaine Screen U Marijuana (THC) Screen Ethyl Alcohol ECG Attestation: I personally reviewed and interpreted this ECG as follows: (Sinus tachycardia [address]-T wave changes. Comparison unavailable for review.) ECG interpretation date: 02/04/23 ECG interpretation time: 22:22 Prior ECG tracings: not available for review Imaging Radiologist's Impressions: Impressions Chest CT 02/04/23 16:42 IMPRESSION: Multilobar bilateral infiltrates. Fleischner guidelines were followed. Cervical Spine CT 02/04/23 16:43 IMPRESSION: CT Head: 1. There are no acute bleeds or territorial infarcts. No masses are demonstrated. 2. There are sequelae of prior bifrontal craniotomies. There is a bony defect in the anterior frontal bone superior to the frontal sinuses, consistent with postoperative changes. CT Maxillofacial: 1. There are no acute fractures or subluxations. There is irregularity of the nasal bones, most consistent with sequelae of chronic trauma. 2. There is opacification of the left maxillary and right ethmoid sinuses. 3. There is a sigmoid configuration of the nasal septum with a left-sided bony nasal septal spur. CT Cervical Spine: 1. There are no acute fractures or subluxations. 2. There is straightening of the cervical lordosis which may be due to positioning or muscle spasm. 3. There is mild narrowing of intervertebral disc height at C5-C6. Face CT 02/04/23 16:43 IMPRESSION: CT Head: 1. There are no acute bleeds or territorial infarcts. No masses are demonstrated. 2. There are sequelae of prior bifrontal craniotomies. There is a bony defect in the anterior frontal bone superior to the frontal sinuses, consistent with postoperative changes. CT Maxillofacial: 1. There are no acute fractures or subluxations. There is irregularity of the nasal bones, most consistent with sequelae of chronic trauma. 2. There is opacification of the left maxillary and right ethmoid sinuses. 3. There is a sigmoid configuration of the nasal septum with a left-sided bony nasal septal spur. CT Cervical Spine: 1. There are no acute fractures or subluxations. 2. There is straightening of the cervical lordosis which may be due to positioning or muscle spasm. 3. There is mild narrowing of intervertebral disc height at C5-C6. Head CT 02/04/23 16:44 IMPRESSION: CT Head: 1. There are no acute bleeds or territorial infarcts. No masses are demonstrated. 2. There are sequelae of prior bifrontal craniotomies. There is a bony defect in the anterior frontal bone superior to the frontal sinuses, consistent with postoperative changes. CT Maxillofacial: 1. There are no acute fractures or subluxations. There is irregularity of the nasal bones, most consistent with sequelae of chronic trauma. 2. There is opacification of the left maxillary and right ethmoid sinuses. 3. There is a sigmoid configuration of the nasal septum with a left-sided bony nasal septal spur. CT Cervical Spine: 1. There are no acute fractures or subluxations. 2. There is straightening of the cervical lordosis which may be due to positioning or muscle spasm. 3. There is mild narrowing of intervertebral disc height at C5-C6. Chest X-Ray 02/04/23 19:02 IMPRESSION: 1. Bilateral patchy opacity in both lungs especially middle and lower lobes consistent with infiltrates. This is better visualized on earlier CT chest from today. 2. Tip of endotracheal tube is 4.7 cm above the celeste. Assessment and Plan (1) Aspiration pneumonia: Qualifiers: Aspiration pneumonia type: unspecified Laterality: bilateral Lung location: unspecified part of lung Qualified Code(s): J69.0 - Pneumonitis due to inhalation of food and vomit Status: Acute (2) Acute renal failure due to rhabdomyolysis: Status: Acute (3) Seizure: Status: Acute (4) Altered mental status: Qualifiers: Altered mental status type: unspecified Qualified Code(s): R41.82 - Altered mental status, unspecified Status: Acute (5) Transaminitis: Status: Acute Plan Plan 32-year-old male with a history of epilepsy, childhood trauma, metal plate in frontal area of head, substance abuse admitted with? aspiration pneumonia, acute renal failure due to rhabdomyolysis, seizure, altered mental status. Neuro:? altered mental status on arrival, patient likely postictal, currently sedated. Continue Keppra. Cardiac: ?Rhabdo- patient with elevated CK after being found down,time frame unknown. Received? a total? 4.7L in the ED.? EKG showed sinus tachycardia. Will continue fluid hydration.? Continue trend CK.? Monitor for arrhythmias. Pulmonary: Acute respiratory failure secondary to rhabdomyolysis.? Intubated for airway protection. Continue to titrate of ventilatory support as tolerated. Multilobar bilateral infiltrates noted on chest CT. Continue Unasyn.? Renal: ARF, metabolic acidosis most likely related to dehydration, rhabdomyolysis, nonoliguric. 4.7L in the? ED.? Sodium bicarb gtt ordered. Continuous IVF. Continue to check renal induces and urine output. Monitor blood pH. GI: ? Transaminitis. Hepatitis B,C panel ordered.? ID: Empirically covered for aspiration pneumonia. BC pending. Heme/Onc: ?No acute issues. Psych:? No acute issues. Diet:? NPO Prophylaxis:? subQ heparin, PPI Total time managing care of this patient today: 60 minutes.
[2023-02-04 21:42] LABS: Reflex Lactate? 2 Y
[2023-02-04] MEDS: Lactated Ringers 1,000 ML 300 ML IVCONT (21:44)
[2023-02-04] MEDS: propofoL 1,000 MG/100 ML VIAL 37.42 MG IVCONT (21:45)
[2023-02-04] MEDS: Chlorhexidine Gluc Oral Rinse 15 ML MOUTHWASH BUCCAL (21:48)
[2023-02-04] MEDS: Heparin Sodium,Porcine 5,000 UNIT/ML VIAL 5000 UNIT SUBCUT (21:49)
[2023-02-04 22:00] LABS: Venous Blood Gas Refer to POC result
[2023-02-04 22:02] LABS: VBG Base Excess -4.2 mmol/L; VBG HCO3 21 mmol/L (22-26); VBG pCO2 39 mmHg; VBG pH 7.33 (7.32-7.43); VBG pO2 117 mmHg
[2023-02-04 22:10] LABS: ~Lactic Acid-LAB USE ONLY 2.2 mmol/L (0.5-2.0)
[2023-02-05] VITALS (58 sets, daily range): BP systolic 84–160; BP diastolic 34–97; PULSE 87–134; RESP 23–43; TEMP 34.9–39.1; O2SAT 88–100; BMI 42.5
[2023-02-05] MEDS: propofoL 1,000 MG/100 ML VIAL 37.42 MG IVCONT ×9 (00:06→23:12)
[2023-02-05] MEDS: Lactated Ringers 1,000 ML 300 ML IVCONT ×3 (00:15→05:36)
[2023-02-05] MEDS: Ampicillin Sodium/Sulbactam Na 3 GM in 0.9 % Sodium Chloride 100 ML IV ×4 (00:16→18:01)
--- NOTE | 2023-02-05 02:34 | PC.NURSE ---
Addendum entered by Bobby Peng RN 02/05/23 06:19: TURNED AND REPOSITIONED THIS AM...AGITATED/COUGHING AGAINST ETT...RAISED L[place] CREAMY SPUTUM...REMAINS AGITATED/TACHYPNEIC...ICU AUTO DAMAGE APPRAISER PRESENT...STARTED PRECIDEX DRIP 0.5 MCG/KG/HR IN ADDITION TO PROPOFOL 50 MCG/KG/MIN...GRADUAL SEDATIVE EFFECT...CURRENT FLUID BALANCE SINCE ADMIT TO ER DEPT APPROX 8.5 LITERS (+)...AM CHEMISTRY AND CPK RESULTS PENDING Original Note: ADMIT TO [facility]-1 APPROX 20:45...INTUBATED/VCV VENT SUPPORT.....SAO2 93-94% WITH FIO2 100% AND PEEP 10...GRADUAL IMPROVEMENT TO 95-96%..FIO2 WEANED TO 90%..SINUS TACH HR 128-132....HR IMPROVED FROM 140'S-150'S IN ER DEPT...BP STABLE....IV BOLUS FROM ER COMPLETED..MAINTAINED D5W 1000/NaHCO3 150 MEQ 100 CC/HR...STARTED ALSO LR 300 CC/HR PER ICU AUTO DAMAGE APPRAISER...TEMPERATURE SENSING AGRAWAL PLACED...CLEAR YELLOW URINE >100 CC/HR PAST 3 HOURS....TEMP 100.6-100.8...NO PRN TYLENOL D/T ELEVATED LFT'S...PROPOFOL MAINTAINED 50 MCG/KG/MIN D/T AGITATION IN ER DEPT...SEDATE..(+) GAG/COUGH...ASSISTS VENT IN AC MODE...PUPILS 3MM AND SLUGGISH
[2023-02-05] MEDS: Heparin Sodium,Porcine 5,000 UNIT/ML VIAL 5000 UNIT SUBCUT ×3 (02:48→19:34)
[2023-02-05] MEDS: levETIRAcetam in NaCl (iso-os) 1,000 MG/100 ML PIGGYBACK 400 MG IV ×2 (03:36→15:15)
[2023-02-05] MEDS: Sodium Bicarbonate 8.4% 150 MEQ in Dextrose 5 % 850 ML 100 MEQ IV (03:39)
[2023-02-05] MEDS: Pantoprazole Sodium 40 MG in 0.9 % Sodium Chloride 100 ML 400 MG IV (05:20)
[2023-02-05 05:31] LABS: VBG HCO3 25 mmol/L (22-26); VBG pCO2 36 mmHg; VBG pH 7.45 (7.32-7.43); VBG pO2 65 mmHg
[2023-02-05 05:34] LABS: Venous Blood Gas Refer to POC result
[2023-02-05 06:05] LABS: Hematocrit 35.7 % (42.0-52.0); Hemoglobin 11.8 g/dl (14.0-18.0); Mean Corpuscular HGB Conc 33.1 g/dl (31.0-36.0); Mean Corpuscular Hemoglobin 28.4 pg (27.0-33.0); Mean Platelet Volume 9.6 fL (9.4-12.4); Platelet Count 138 X10*3/uL (160-400); Red Blood Count 4.15 X10*6/uL (4.60-5.80); Red Cell Distribution Width 14.1 % (11.0-16.0); White Blood Count 13.3 X10*3/uL (4.8-10.8)
[2023-02-05] MEDS: dexmedeTOMIDidine HCL/NS 400 MCG/100 ML INFUS..BTL 16.35 MCG IVCONT (06:10)
[2023-02-05 06:24] LABS: Alanine Aminotransferase 919 U/L (0-40); Albumin Level 3.2 g/dL (3.5-5.0); Alkaline Phosphatase 77 U/L (39-117); Anion Gap 17 (12-20); Aspartate Amino Transferase 1476 U/L (5-37); Bilirubin Total 0.4 mg/dL (0.0-1.0); Blood Urea Nitrogen 38 mg/dL (9-16); Calcium 7.4 mg/dL (8.4-10.2); Carbon Dioxide 21 mmol/L (22-29); Chloride 108 mmol/L (96-108); Creatinine Clr Calc Pharmacy 37.6; Estimated Glomerular Filt Rate 18; Glucose Random 117 mg/dL (60-115); Magnesium 2.4 mg/dL (1.6-2.6); Phosphorus 2.4 mg/dL (2.7-4.5); Potassium 4.3 mmol/L (3.3-5.1); Sodium 142 mmol/L (135-145)
[2023-02-05 06:30] LABS: Lymphocytes Absolute Manual 1.3 X10*3/uL (1.2-4.9); Lymphocytes Percent Manual 10 % (20-40)
[2023-02-05 06:32] LABS: Band Neutrophils Percent 17 % (3-5); Monocytes Absolute Manual 0.3 X10*3/uL (0.1-1.2); Monocytes Percent Manual 2 % (2-11); Neutrophils Absolute Manual 11.7 X10*3/uL (2.0-8.3); Neutrophils Percent Manual 71 % (45-73)
[2023-02-05 06:34] LABS: Burr Cells 1+ (0-2) /OIF; Dohle Bodies PRESENT; Platelet Estimate SLIGHTLY DECREASED (NORMAL); Platelet Morphology Comment NORMAL; RBC Morphology NOTED; Tear Drop Cells 1+ (0-2) /OIF; Toxic Vacuolation PRESENT
[2023-02-05 06:35] LABS: HBS Num1 15.13 mIU/mL (0-7.99); HBc Num1 0.08 S/CO (0.00-0.79); HBsAGNum1 0.26 S/CO (0.00-0.99); Hepatitis B Core Antibody Nonreactive (Nonreactive); Hepatitis B Surface Antigen Negative (Negative); ~HepC Num1 0.62 S/CO (0.00-0.79); ~Hepatitis B Surface Antibody REACTIVE (Nonreactive); ~Hepatitis C Antibody Nonreactive (Nonreactive)
[2023-02-05] MEDS: Chlorhexidine Gluc Oral Rinse 15 ML MOUTHWASH BUCCAL ×3 (07:59→19:34)
[2023-02-05] MEDS: Calcium Gluconate/NaCl,Iso-Osm 2 GM/100 ML PLAST..BAG IV (08:46)
[2023-02-05] MEDS: Potassium Phosphate/NS 15 MMOL/250 ML PLAST..BAG 62.5 MMOL IV (08:46)
[2023-02-05] MEDS: Lactated Ringers 1,000 ML 150 ML IVCONT ×3 (08:48→21:46)
[2023-02-05] MEDS: dexmedeTOMIDidine HCL/NS 400 MCG/100 ML INFUS..BTL 22.89 MCG IVCONT (09:32)
--- NOTE | 2023-02-05 10:28 | P.PNCC_ITS ---
Subjective Subjective Date of Service: 02/05/23 Interval History: 32-year-old gentleman with underlying history seizures, encephalocele repair, polysubstance abuse admitted on 02/04/2023 after being unresponsive by his family. On ER evaluation patient With polysubstance abuse, acute renal failure, rhabdomyolysis and agitation requiring multiple sedatives and with escalating FiO2 requirements, eventually requiring intubation for airway protection. Admitted to the intensive care unit. Started on empiric antibiotics and IV fluid support. No events overnight. CPK is improving. Critical Care Time (minutes): 60 Physical Exam 2 Vital Signs: Vital Signs: Last Vital Signs Temp 100.9 F H 02/05/23 10:00 Pulse 111 H 02/05/23 10:00 Resp 32 H 02/05/23 10:00 BP 94/51 L 02/05/23 10:00 Pulse Ox 100 02/05/23 10:00 O2 Del Method Mechanical Ventil ation 02/05/23 10:00 O2 Flow Rate 16 02/04/23 18:27 FiO2 85 02/05/23 10:00 BMI result Body Mass Index 42.5 Const: General: no acute distress and other ( Sedated on the vent) Eyes: Sclerae: sclerae normal Neck: Neck: Yes no lymphadenopathy, Yes trachea midline and Yes supple Resp: Auscultation: crackles ( left basilar) Cardio: Rate: regular rate Rhythm: regular rhythm Heart sounds: no gallops, no murmurs and no rubs GI: Palpation (GI): Soft to palpation and Other GI palpation findings present ( Nontender) Auscultation: normal bowel sounds Extrem: General: Yes no pedal edema, No clubbing and No cyanosis Objective Data Labs 02/05/23 05:25 02/05/23 05:25 Labs: Laboratory Results - last 24 hr 02/04/23 02/04/23 02/04/23 15:32 16:38 16:56 WBC 20.8 H RBC 5.38 Hgb 15.0 Hct 46.2 MCV 85.9 MCH 27.9 MCHC 32.5 RDW 13.9 Plt Count 236 MPV 8.9 L Immature Gran % (Auto) 0.7 H Neut % (Auto) 88.1 H Lymph % (Auto) 6.9 L [place] % (Auto) 4.2 Eos % (Auto) 0.0 Baso % (Auto) 0.1 Lymph # (Auto) 1.4 [place] # (Auto) 0.9 Eos # (Auto) 0.0 Baso # (Auto) 0.0 Abs Immat Gran (auto) 0.14 H Absolute Neuts (auto) 18.3 H Absolute Nucleated RBC 0.000 Nucleated RBC % (auto) 0.0 Neutrophils % (Manual) Band Neutrophils % Lymphocytes % (Manual) Monocytes % (Manual) Abs Neuts (Manual) Lymphocytes # (Manual) Monocytes # (Manual) Toxic Vacuolation Dohle Bodies Platelet Estimate Plt Morphology Comment RBC Morphology Tear Drop Cells Mccomb Cells Smear Tech's Comments PT 14.7 H INR 1.2 H VBG pH 7.35 VBG pCO2 36 VBG pO2 56 VBG HCO3 20 L VBG O2 Saturation 85.0 VBG Base Excess -4.7 Sodium 140 Potassium 5.1 Chloride 103 Carbon Dioxide 21 L Anion Gap 21 H BUN 31 H Creatinine 3.52 H Estim Creat Clear Calc 39.5 Estimated GFR 20 Random Glucose 101 Lactic Acid 6.2 H* Lactic Acid F/U @ 2Hr Lactic Acid F/U @ 4Hr Calcium 8.7 Phosphorus Magnesium 2.5 Total Bilirubin 0.6 AST 2181 H ALT 1316 H Alkaline Phosphatase 92 Total Creatine Kinase 33862 H Total Protein 7.9 Albumin 4.5 Urine Opiates Screen Not Detected Urine Fentanyl Screen POSITIVE H Ur Barbiturates Screen Not Detected Ur Phencyclidine Scrn Not Detected Ur Amphetamines Screen Not Detected U Benzodiazepines Scrn POSITIVE H Urine Cocaine Screen POSITIVE H U Marijuana (THC) Screen POSITIVE H Ethyl Alcohol < 10 Hep Bs Antigen Hep Bs Antibody Hep B Core Total Ab Hepatitis C Ab (EIA) 02/04/23 02/04/23 02/04/23 19:31 21:53 21:56 WBC 16.8 H RBC 4.82 Hgb 13.4 L Hct 41.8 L MCV 86.7 MCH 27.8 MCHC 32.1 RDW 14.0 Plt Count 174 D MPV 9.2 L Immature Gran % (Auto) 0.3 Neut % (Auto) 90.6 H Lymph % (Auto) 5.9 L [place] % (Auto) 3.0 Eos % (Auto) 0.0 Baso % (Auto) 0.2 Lymph # (Auto) 1.0 L [place] # (Auto) 0.5 Eos # (Auto) 0.0 Baso # (Auto) 0.0 Abs Immat Gran (auto) 0.05 H Absolute Neuts (auto) 15.2 H Absolute Nucleated RBC 0.000 Nucleated RBC % (auto) 0.0 Neutrophils % (Manual) Band Neutrophils % Lymphocytes % (Manual) Monocytes % (Manual) Abs Neuts (Manual) Lymphocytes # (Manual) Monocytes # (Manual) Toxic Vacuolation Dohle Bodies Platelet Estimate Plt Morphology Comment RBC Morphology Tear Drop Cells Mccomb Cells Smear Tech's Comments VERIFIED PT INR VBG pH 7.33 VBG pCO2 39 VBG pO2 117 VBG HCO3 21 L VBG O2 Saturation 99.0 VBG Base Excess -4.2 Sodium 143 Potassium 5.7 H Chloride 109 H Carbon Dioxide 21 L Anion Gap 19 BUN 34 H Creatinine 3.60 H Estim Creat Clear Calc 38.6 Estimated GFR 20 Random Glucose 116 H Lactic Acid Lactic Acid F/U @ 2Hr 2.8 H* Lactic Acid F/U @ 4Hr 2.2 H* Calcium 7.5 L D Phosphorus Magnesium Total Bilirubin 0.6 AST 2587 H ALT 1156 H Alkaline Phosphatase 81 Total Creatine Kinase Total Protein 6.7 Albumin 3.8 Urine Opiates Screen Urine Fentanyl Screen Ur Barbiturates Screen Ur Phencyclidine Scrn Ur Amphetamines Screen U Benzodiazepines Scrn Urine Cocaine Screen U Marijuana (THC) Screen Ethyl Alcohol Hep Bs Antigen Hep Bs Antibody Hep B Core Total Ab Hepatitis C Ab (EIA) 02/05/23 02/05/23 05:24 05:25 WBC 13.3 H RBC 4.15 L Hgb 11.8 L Hct 35.7 L MCV 86.0 MCH 28.4 MCHC 33.1 RDW 14.1 Plt Count 138 L MPV 9.6 Immature Gran % (Auto) Cancelled Neut % (Auto) Cancelled Lymph % (Auto) Cancelled Den[place] % (Auto) Cancelled Eos % (Auto) Cancelled Baso % (Auto) Cancelled Lymph # (Auto) Cancelled [place] # (Auto) Cancelled Eos # (Auto) Cancelled Baso # (Auto) Cancelled Abs Immat Gran (auto) Cancelled Absolute Neuts (auto) Cancelled Absolute Nucleated RBC 0.000 Nucleated RBC % (auto) 0.0 Neutrophils % (Manual) 71 Band Neutrophils % 17 H Lymphocytes % (Manual) 10 L Monocytes % (Manual) 2 Abs Neuts (Manual) 11.7 H Lymphocytes # (Manual) 1.3 Monocytes # (Manual) 0.3 Toxic Vacuolation PRESENT Dohle Bodies PRESENT Platelet Estimate SLIGHTLY DECREASED Plt Morphology Comment NORMAL RBC Morphology NOTED Tear Drop Cells 1+ (0-2) Mccomb Cells 1+ (0-2) Smear Tech's Comments PT INR VBG pH 7.45 H VBG pCO2 36 VBG pO2 65 VBG HCO3 25 VBG O2 Saturation 91.0 VBG Base Excess 2.0 Sodium 142 Potassium 4.3 D Chloride 108 Carbon Dioxide 21 L Anion Gap 17 BUN 38 H Creatinine 3.85 H Estim Creat Clear Calc 37.6 Estimated GFR 18 Random Glucose 117 H Lactic Acid Lactic Acid F/U @ 2Hr Lactic Acid F/U @ 4Hr Calcium 7.4 L Phosphorus 2.4 L Magnesium 2.4 Total Bilirubin 0.4 AST 1476 H ALT 919 H Alkaline Phosphatase 77 Total Creatine Kinase 78268 H Total Protein 6.0 L Albumin 3.2 L Urine Opiates Screen Urine Fentanyl Screen Ur Barbiturates Screen Ur Phencyclidine Scrn Ur Amphetamines Screen U Benzodiazepines Scrn Urine Cocaine Screen U Marijuana (THC) Screen Ethyl Alcohol Hep Bs Antigen Negative Hep Bs Antibody REACTIVE Hep B Core Total Ab Nonreactive Hepatitis C Ab (EIA) Nonreactive Progress Note: A&P Assessment and plan (1) Polysubstance abuse: Status: Acute (2) Seizure: Status: Acute (3) Acute renal failure due to rhabdomyolysis: Status: Acute (4) Aspiration pneumonia: Status: Acute (5) Transaminitis: Status: Acute (6) Acute respiratory failure with hypoxia: Status: Acute Plan Assessment: 32-year-old gentleman admitted with polysubstance abuse, agitation, aspiration pneumonitis versus pneumonia, rhabdomyolysis, and acute kidney injury, now requiring ventilatory support. Plan: Neuro: Acute toxic encephalopathy secondary to polysubstance abuse. Underlying seizure disorder. Continue on Keppra. Cardiac: No acute issues. Pulmonary: acute respiratory failure with hypoxia secondary to pulmonary aspiration Now requiring ventilatory support. Continue to titrate off ventilatory support as tolerated. Renal: Acute renal failure and abnormalities, improving with IV fluids. Continue to monitor renal indices and urine output. Endo: No acute issues. GI: Transaminitis, likely secondary to polysubstance abuse , improving, hepatitis panel is pending. ID: empirically covered for aspiration pneumonitis versus pneumonia. Heme/Onc: No acute issues. Psych: No acute issues. Miscellaneous: No acute issues. Prophylaxis: heparin, famotidine Diet: nothing by mouth Critical care time spent: 60 minutes Quality Stroke Does the patient have a stroke diagnosis?: No VTE Prior VTE?: No VTE Risk Level:: Medical - moderate - high VTE Device Contraindication: N/A - Device Ordered VTE Drug Contraindication: N/A - Med Ordered
--- NOTE | 2023-02-05 12:34 | MHC.CM.PN ---
Pt intubated and unable to participate in CM assessment: Next of kin contact number in [employer] not in service. Discussed w/ICU staff: several people have been calling requesting information: will await call from family/next of kin to assist w/information. EMR notes pt was recently incarcerated and placed in detox following. D/C'd 2 days prior. CM to follow for d/c planning needs.
[2023-02-05] MEDS: propofoL 1,000 MG/100 ML VIAL 22.45 MG IVCONT (12:57)
[2023-02-05] MEDS: dexmedeTOMIDidine HCL/NS 400 MCG/100 ML INFUS..BTL 29.43 MCG IVCONT (13:34)
--- NOTE | 2023-02-05 14:06 | PC.NURSE ---
Addendum entered by Aliza Dong RN 02/05/23 14:22: CXR ordered and completed - ETT advanced from 26cm to 28cm by RT VO Dr Marie. Currently sating 92% on pc Original Note: Patient repositioned to left at 1400 - immediately after repositioning 02 sat down to mid 80's, RR mid 40's MV 18 TV 380-460. Accessory muscle use, head bobbing, LS dim throughout. Patient suctioned w/o production of sputum - RT and MD at bedside. Sedation increased - see EMAR. Cuff pressure checked and patient bag lavaged by RT and MD w/ minimal thick cream pink tinged sputum. Peep increased from 8 to 10, Fio2 100% sating high 80's. Current BP 104/48 MAP 72.
--- NOTE | 2023-02-05 14:24 | PC.NURSE ---
Addendum entered by Aliza Dong RN 02/05/23 14:49: MAP maintaining <65 - MD notified - Levophed ordered and titrated - see EMAR. Current BP 119/69 MAP 85 Original Note: 1408 Patient repositioned to left at 1400 - immediately after repositioning 02 sat down to mid 80's, RR mid 40's MV 18 TV 380-460. Accessory muscle use, head bobbing, LS dim throughout. Patient suctioned w/o production of sputum - RT and MD at bedside. Sedation increased - see EMAR. Cuff pressure checked and patient bag lavaged by RT and MD w/ minimal thick cream pink tinged sputum. Peep increased from 8 to 10, Fio2 100% sating high 80's. Current BP 104/48 MAP 72. 1420 CXR ordered and completed - ETT advanced from 26cm to 28cm by RT VO Dr Marie. Currently sating 93% on PC 15/10 rate 22 100% Fio2. TV 620's, MV 23. Continued accessory muscle use, RR 36, HR 105, 98/56 MAP 70.
[2023-02-05] MEDS: Norepinephrine Bitartrate/D5W 8 MG/250 ML PLAST..BAG 12.59 MG IV (14:33)
[2023-02-05] MEDS: dexmedeTOMIDidine HCL/NS 400 MCG/100 ML INFUS..BTL 35.97 MCG IVCONT ×2 (16:06→18:22)
[2023-02-05] MEDS: fentaNYL citrate/PF 100 MCG/2 ML VIAL 50 MCG IVPUSH (19:46)
[2023-02-05] MEDS: dexmedeTOMIDidine HCL/NS 400 MCG/100 ML INFUS..BTL 42.51 MCG IVCONT ×2 (20:53→23:16)
[2023-02-06] VITALS (32 sets, daily range): BP systolic 114–159; BP diastolic 75–102; PULSE 63–89; RESP 27–36; TEMP 34.9–38.8; O2SAT 89–97; BMI 44.1
[2023-02-06] MEDS: fentaNYL citrate/PF 100 MCG/2 ML VIAL 50 MCG IVPUSH ×2 (00:34→22:56)
[2023-02-06] MEDS: Ampicillin Sodium/Sulbactam Na 3 GM in 0.9 % Sodium Chloride 100 ML IV ×4 (00:35→18:01)
[2023-02-06] MEDS: propofoL 1,000 MG/100 ML VIAL 37.42 MG IVCONT ×10 (01:34→23:37)
[2023-02-06] MEDS: dexmedeTOMIDidine HCL/NS 400 MCG/100 ML INFUS..BTL 42.51 MCG IVCONT ×10 (01:35→22:06)
[2023-02-06] MEDS: Heparin Sodium,Porcine 5,000 UNIT/ML VIAL 5000 UNIT SUBCUT ×3 (03:59→19:39)
[2023-02-06] MEDS: levETIRAcetam in NaCl (iso-os) 1,000 MG/100 ML PIGGYBACK 400 MG IV ×2 (04:00→15:08)
[2023-02-06] MEDS: Lactated Ringers 1,000 ML 150 ML IVCONT ×4 (04:20→23:38)
[2023-02-06 05:28] LABS: VBG Base Excess 1.4 mmol/L; VBG HCO3 24 mmol/L (22-26); VBG pCO2 31 mmHg; VBG pH 7.48 (7.32-7.43); VBG pO2 42 mmHg
[2023-02-06 05:40] LABS: Venous Blood Gas Refer to POC result
[2023-02-06 05:52] LABS: Hematocrit 32.8 % (42.0-52.0); Hemoglobin 11.1 g/dl (14.0-18.0); Mean Corpuscular HGB Conc 33.8 g/dl (31.0-36.0); Mean Corpuscular Hemoglobin 28.7 pg (27.0-33.0); Mean Corpuscular Volume 84.8 fL (80.0-98.0); Mean Platelet Volume 10.5 fL (9.4-12.4); Platelet Count 119 X10*3/uL (160-400); Red Blood Count 3.87 X10*6/uL (4.60-5.80); Red Cell Distribution Width 13.9 % (11.0-16.0)
[2023-02-06 06:08] LABS: Alanine Aminotransferase 1063 U/L (0-40); Alkaline Phosphatase 88 U/L (39-117); Anion Gap 17 (12-20); Aspartate Amino Transferase 928 U/L (5-37); Bilirubin Total 0.7 mg/dL (0.0-1.0); Blood Urea Nitrogen 41 mg/dL (9-16); Calcium 8.4 mg/dL (8.4-10.2); Carbon Dioxide 22 mmol/L (22-29); Chloride 109 mmol/L (96-108); Creatinine Clr Calc Pharmacy 48.2; Estimated Glomerular Filt Rate 24; Glucose Random 127 mg/dL (60-115); Magnesium 2.4 mg/dL (1.6-2.6); Potassium 4.1 mmol/L (3.3-5.1); Sodium 144 mmol/L (135-145); Total Protein 6.2 g/dL (6.5-8.0)
[2023-02-06] MEDS: Pantoprazole Sodium 40 MG in 0.9 % Sodium Chloride 100 ML 400 MG IV (06:09)
[2023-02-06] MEDS: Albumin Human 25 % 100 ML IV (06:27)
[2023-02-06 07:47] LABS: Band Neutrophils Percent 12 % (3-5); Basophils Abs Manual 0.2 X10*3/uL (0.0-0.2); Basophils Percent Manual 1 % (0-2); Eosinophils Absolute Manual 0.3 X10*3/uL (0.0-0.4); Eosinophils Percent Manual 2 % (0-4); Lymphocytes Absolute Manual 2.3 X10*3/uL (1.2-4.9); Lymphocytes Percent Manual 15 % (20-40); Neutrophils Absolute Manual 12.3 X10*3/uL (2.0-8.3); Neutrophils Percent Manual 70 % (45-73)
[2023-02-06 07:49] LABS: Dohle Bodies PRESENT; Platelet Estimate SLIGHTLY DECREASED (NORMAL); Platelet Morphology Comment NORMAL; RBC Morphology NORMAL
[2023-02-06] MEDS: Chlorhexidine Gluc Oral Rinse 15 ML MOUTHWASH BUCCAL ×3 (08:17→20:43)
--- NOTE | 2023-02-06 10:59 | PM.CCPN ---
Subjective Subjective Date of Service: 02/06/23 Interval History: 32-year-old gentleman with underlying history seizures, encephalocele repair, polysubstance abuse admitted on 02/04/2023 after being unresponsive by his family. On ER evaluation patient With polysubstance abuse, acute renal failure, rhabdomyolysis and agitation requiring multiple sedatives and with escalating FiO2 requirements, eventually requiring intubation for airway protection. Admitted to the intensive care unit. Started on empiric antibiotics and IV fluid support. No events overnight. CPK and renal function are improving. Critical Care Time (minutes): 45 Physical Exam Vital Signs: Vital Signs: Last Vital Signs Temp 100.8 F H 02/06/23 10:00 Pulse 79 02/06/23 10:00 Resp 33 H 02/06/23 10:00 BP 154/98 H 02/06/23 10:00 Pulse Ox 94 02/06/23 10:00 O2 Del Method Mechanical Ventil ation 02/06/23 10:00 O2 Flow Rate 16 02/04/23 18:27 FiO2 40 02/06/23 10:00 BMI result Body Mass Index 44.1 Const: General: no acute distress and other (Sedated on the vent) Eyes: Sclerae: sclerae normal EOM: EOMs intact bilaterally Neck: Neck: Yes no lymphadenopathy, Yes trachea midline and Yes supple Resp: Auscultation: clear to auscultation bilaterally Cardio: Rate: regular rate Rhythm: regular rhythm Heart sounds: no gallops, no murmurs and no rubs GI: Palpation (GI): Soft to palpation and Other GI palpation findings present ( Nontender) Auscultation: normal bowel sounds Extrem: General: Yes no pedal edema, No clubbing and No cyanosis Objective Data Labs 02/06/23 05:24 02/06/23 05:24 Labs: Laboratory Results - last 24 hr 02/06/23 02/06/23 05:23 05:24 WBC 15.0 H RBC 3.87 L Hgb 11.1 L Hct 32.8 L MCV 84.8 MCH 28.7 MCHC 33.8 RDW 13.9 Plt Count 119 L MPV 10.5 Immature Gran % (Auto) Cancelled Neut % (Auto) Cancelled Lymph % (Auto) Cancelled [place] % (Auto) Cancelled Eos % (Auto) Cancelled Baso % (Auto) Cancelled Lymph # (Auto) Cancelled [place] # (Auto) Cancelled Eos # (Auto) Cancelled Baso # (Auto) Cancelled Abs Immat Gran (auto) Cancelled Absolute Neuts (auto) Cancelled Absolute Nucleated RBC 0.000 Nucleated RBC % (auto) 0.0 Neutrophils % (Manual) 70 Band Neutrophils % 12 H Lymphocytes % (Manual) 15 L Eosinophils % (Manual) 2 Basophils % (Manual) 1 Abs Neuts (Manual) 12.3 H Lymphocytes # (Manual) 2.3 Eosinophils # (Manual) 0.3 Basophils # (Manual) 0.2 Dohle Bodies PRESENT Platelet Estimate SLIGHTLY DECREASED Plt Morphology Comment NORMAL RBC Morphology NORMAL VBG pH 7.48 H VBG pCO2 31 VBG pO2 42 VBG HCO3 24 VBG O2 Saturation 69.0 VBG Base Excess 1.4 Sodium 144 Potassium 4.1 Chloride 109 H Carbon Dioxide 22 Anion Gap 17 BUN 41 H Creatinine 3.07 H Estim Creat Clear Calc 48.2 Estimated GFR 24 Random Glucose 127 H Calcium 8.4 D Phosphorus 3.0 Magnesium 2.4 Total Bilirubin 0.7 AST 928 H ALT 1063 H Alkaline Phosphatase 88 Total Creatine Kinase 84459 H Total Protein 6.2 L Albumin 3.0 L Microbiology Microbiology Results: Microbiology 02/04/23 16:33 Blood - Venous Blood Culture - Preliminary No growth after 24 hours. 02/04/23 15:32 Blood - Venous Blood Culture - Preliminary No growth after 24 hours. 02/05/23 07:25 Sputum - Suctioned Gram Stain - Final Progress Note: A&P Assessment and plan (1) Acute respiratory failure with hypoxia: Status: Acute (2) Polysubstance abuse: Status: Acute (3) Acute renal failure due to rhabdomyolysis: Status: Acute (4) Seizure: Status: Acute (5) Toxic encephalopathy: Status: Acute Plan Assessment: 32-year-old gentleman admitted with polysubstance abuse, agitation, aspiration pneumonitis versus pneumonia, rhabdomyolysis, and acute kidney injury, now requiring ventilatory support. Plan: Neuro: Acute toxic encephalopathy secondary to polysubstance abuse. Underlying seizure disorder. Continue on Keppra. Cardiac: No acute issues. Pulmonary: acute respiratory failure with hypoxia secondary to pulmonary aspiration Now requiring ventilatory support. Continue to titrate off ventilatory support as tolerated. FiO2 requirements improving. Renal: Acute renal failure and abnormalities, improving with IV fluids. Continue to monitor renal indices and urine output. Endo: No acute issues. GI: Transaminitis, likely secondary to polysubstance abuse , improving. ID: empirically covered for aspiration pneumonitis versus pneumonia. Heme/Onc: No acute issues. Psych: No acute issues. Miscellaneous: No acute issues. Prophylaxis: heparin, famotidine Diet: nothing by mouth Critical care time spent: 60 minutes Quality Stroke Does the patient have a stroke diagnosis?: No VTE Prior VTE?: No VTE Risk Level:: Medical - moderate - high VTE Device Contraindication: N/A - Device Ordered VTE Drug Contraindication: N/A - Med Ordered
--- NOTE | 2023-02-06 12:11 | PC.NURSE ---
Addendum entered by Roselia Bruner RN 02/06/23 17:47: 1700- pt. temp 101.5- ice bags replaced. Pt strongly and repeatedly coughing, RR 40s, O2 sats sustaining 88-90% on 40% FiO2. ETT suctioned by this RN for small amount thick rust colored sputum- no change in RR or O2 sats- RT called to bedside. Pt lavaged by RT for moderate amount of ayana sputum. Audible cuff leak heard- cuff pressures checked and air instilled into cuff multiple times by RT- audible cuff leak sustains. Patient volumes 400-500. MD called to bedside. ETT exchanged via bougie by MD- new ETT 7.5 28 cm @ the lip. ETT placement confirmed by CXR- see report. ETT pulled back to 27 cm at the lip by RT per MD. Current O2 sat 94% on 100% FiO2, RR 31, HR 23, MAPS >65. Report given to maintenance supervisor 2nd shift RN. Original Note: Assumed care at 0700-patient intubated and sedated with propofol gtt, tolerating PC vent settings 10/10 RR 22 40%, O2 sats maintaining >90%. RR maintaining 25-35, HR 80s-90s, SBP 130s-160s with MAPs >65- MD aware. Core temp 101.5- MD notified, patient packed with ice with good effect- core temp currently 100.6. 1130- Bed bath performed with RT at bedside. Pt hyper-oxygenated and oral care performed prior to bed bath. Additional air added ETT cuff by RT prior to rolling patient. Immediately after rolling, pt. developed a cuff leak- resolved by RT. Patient sats maintaining 88-90%, RR 35-45, accessory muscle use, belly breathing, head-bobbing. MD notified and at bedside. Pt ETT lavaged by RT- moderate amount of thick, tenacious creamy pink sputum suctioned. moderate amount of oral secretions suctioned by this RN. Per VO- do not roll patient until further instructed to do so. Patient current RR 34, continues to belly breath, O2 sat 89% on 50% FiO2- MD aware. Current HR 77, BP 141/93 MAP 112 , Temp 100.4- ice bags removed. Oral care performed Q2.
--- NOTE | 2023-02-06 18:42 | PC.RT ---
RT called by RN to bedside, noted cuff leak. Pt had violent coughing jags resulting in ETT dislodging to [id number] at the lip. Remaining air removed from cuff, ETT advanced to [id number] where placement was verified post intubation. Unable to get cuff seal noted. Dr. Marie called. Dr. Marie using the glidescope verified placement but no noted seal was achieved. Then dr. Marie changed with a 7.5 ETT over a bougie x 1 attempt successfully. Cuff inflated and cxr obtained.
[2023-02-07] VITALS (35 sets, daily range): BP systolic 126–160; BP diastolic 80–103; PULSE 64–94; RESP 18–41; TEMP 34.9–39.7; O2SAT 92–98; BMI 44.6
[2023-02-07] MEDS: Ampicillin Sodium/Sulbactam Na 3 GM in 0.9 % Sodium Chloride 100 ML IV ×4 (00:07→18:17)
[2023-02-07] MEDS: fentaNYL citrate/PF 100 MCG/2 ML VIAL 50 MCG IVPUSH ×5 (00:36→20:04)
[2023-02-07] MEDS: dexmedeTOMIDidine HCL/NS 400 MCG/100 ML INFUS..BTL 42.51 MCG IVCONT ×2 (00:37→19:17)
[2023-02-07] MEDS: propofoL 1,000 MG/100 ML VIAL 37.42 MG IVCONT ×8 (02:02→19:16)
[2023-02-07] MEDS: dexmedeTOMIDidine HCL/NS 400 MCG/100 ML INFUS..BTL 49.05 MCG IVCONT ×8 (02:39→16:36)
--- NOTE | 2023-02-07 02:54 | PC.NURSE ---
ASSUMED CARE AT 1900. S/P NEW ETT INSERTION AND ON PC VENT SETTINGS WITH FIO2 OF 80%. O2 SATS 96-98%. NO RESP DIFFICULTIES. ORDERS GIVEN BY DR NGUYEN TO NOT ROLL PT THIS CAN TRIGGER EXTREME COUGHING AND CAUSE CUFF LEAK AND/OR RUPTURE THUS THE REASON FOR RE INTUBATION. FOR THAT REASON, PT ONLY SLIGHTLY SHIFTED IN POSITION. HE HAS HAD 3 EPISODES OF COUGHING WITH DESATTING AND OIL SEPARATOR AT BEDSIDE. PT RECEIVED A DOSE OF FENTANYL 50 MCG EACH TIME WITH EFFECT. RESP RATE 32-38/MIN. ON PROPOFOL AT 50 MCG AND PRECEDEX AT MAX 1.5 MCG/KG/MIN. BP GOOD TO HIGH 150'S/100. OIL SEPARATOR AWARE. MONITOR SHOWS SR, 70'S, NO ECTOPY. TEMP ELEVATED 100.8-102. U.O IS GOOD APPROX 150ML/HR.
[2023-02-07] MEDS: levETIRAcetam in NaCl (iso-os) 1,000 MG/100 ML PIGGYBACK 400 MG IV ×2 (03:49→15:40)
[2023-02-07] MEDS: Heparin Sodium,Porcine 5,000 UNIT/ML VIAL 5000 UNIT SUBCUT ×3 (03:53→20:10)
[2023-02-07 05:27] LABS: VBG Base Excess -1.1 mmol/L; VBG HCO3 21 mmol/L (22-26); VBG pCO2 29 mmHg; VBG pH 7.47 (7.32-7.43); VBG pO2 48 mmHg
[2023-02-07 05:29] LABS: MANUAL DIFF FLAG NO
[2023-02-07 05:33] LABS: Basophils Absolute Auto 0.1 X10*3/uL (0.0-0.2); Basophils Percent Auto 0.5 % (0-2); Eosinophils Absolute Auto 0.2 X10*3/uL (0.0-0.4); Eosinophils Percent Auto 0.9 % (0-4); Hemoglobin 10.6 g/dl (14.0-18.0); Imm Gran Pct Auto 1.7 % (0.0-0.4); Lymphocytes Absolute Auto 1.6 X10*3/uL (1.2-4.9); Lymphocytes Percent Auto 9.5 % (20-40); Mean Corpuscular HGB Conc 33.1 g/dl (31.0-36.0); Mean Corpuscular Hemoglobin 27.7 pg (27.0-33.0); Mean Corpuscular Volume 83.6 fL (80.0-98.0); Mean Platelet Volume 10.6 fL (9.4-12.4); Monocytes Absolute Auto 0.7 X10*3/uL (0.1-1.2); Monocytes Percent Auto 3.9 % (2-11); NRBC Pct Auto 0.3 /100WBC (0.0-0.2); Neutrophils Absolute Auto 14.4 x10*3/uL (2.0-8.3); Neutrophils Percent Auto 83.5 % (45-73); Platelet Count 126 X10*3/uL (160-400); Red Blood Count 3.83 X10*6/uL (4.60-5.80); Red Cell Distribution Width 13.9 % (11.0-16.0); Venous Blood Gas Refer to POC result; White Blood Count 17.3 X10*3/uL (4.8-10.8)
[2023-02-07 05:47] LABS: Albumin Level 3.1 g/dL (3.5-5.0); Anion Gap 18 (12-20); Blood Urea Nitrogen 34 mg/dL (9-16); Calcium 8.6 mg/dL (8.4-10.2); Carbon Dioxide 19 mmol/L (22-29); Chloride 113 mmol/L (96-108); Creatinine Clr Calc Pharmacy 78.8; Estimated Glomerular Filt Rate 41; Glucose Random 108 mg/dL (60-115); Magnesium 2.3 mg/dL (1.6-2.6); Phosphorus 2.6 mg/dL (2.7-4.5); Potassium 3.9 mmol/L (3.3-5.1); Sodium 146 mmol/L (135-145)
[2023-02-07] MEDS: Pantoprazole Sodium 40 MG in 0.9 % Sodium Chloride 100 ML 400 MG IV (06:00)
[2023-02-07] MEDS: Lactated Ringers 1,000 ML 150 ML IVCONT (06:03)
[2023-02-07] MEDS: Chlorhexidine Gluc Oral Rinse 15 ML MOUTHWASH BUCCAL ×3 (07:29→20:10)
--- NOTE | 2023-02-07 08:54 | PC.RT ---
RT called to bedside, pt rr > 40, audible cuff leak noted. Unable to check cuff pressures due to pt agitation. RT did not add any air as current pressure unobtainable, pt medicated by RN, reduced leak noted. VT and VE good at this time.
[2023-02-07] MEDS: Acetaminophen Oral Liquid 650 MG/20.3 ML SOLUTION PO (09:25)
[2023-02-07] MEDS: Furosemide 40 MG/4 ML VIAL IVPUSH (09:31)
--- NOTE | 2023-02-07 09:45 | P.PNCC_ITS ---
Subjective Subjective Date of Service: 02/07/23 Interval History: 32-year-old gentleman with underlying history seizures, encephalocele repair, polysubstance abuse admitted on 02/04/2023 after being unresponsive by his family. On ER evaluation patient With polysubstance abuse, acute renal failure, rhabdomyolysis and agitation requiring multiple sedatives and with escalating FiO2 requirements, eventually requiring intubation for airway protection. Admitted to the intensive care unit. Started on empiric antibiotics and IV fluid support. Overnight with malfunction of ET tube cuff requiring exchange over bougie. CPK and renal function continue to improve. Critical Care Time (minutes): 60 Physical Exam 2 Vital Signs: Vital Signs: Last Vital Signs Temp 103.3 F H 02/07/23 09:00 Pulse 94 02/07/23 09:00 Resp 35 H 02/07/23 09:00 BP 155/100 H 02/07/23 09:00 Pulse Ox 94 02/07/23 09:00 O2 Del Method Mechanical Ventil ation 02/07/23 09:00 O2 Flow Rate 16 02/04/23 18:27 FiO2 65 02/07/23 09:00 BMI result Body Mass Index 44.6 Const: General: no acute distress and other ( Sedated on the vent) N utritional Appearance: obese Eyes: Sclerae: sclerae normal EOM: EOMs intact bilaterally Neck: Neck: Yes no lymphadenopathy, Yes trachea midline and Yes supple Resp: Auscultation: rales ( bilateral) Cardio: Rate: regular rate Rhythm: regular rhythm Heart sounds: no gallops, no murmurs and no rubs GI: Palpation (GI): Soft to palpation and Other GI palpation findings present ( Nontender) Auscultation: normal bowel sounds Extrem: General: No clubbing, No cyanosis and Yes edema ( trace bilateral) Objective Data Labs 02/07/23 05:12 02/07/23 05:12 Labs: Laboratory Results - last 24 hr 02/07/23 02/07/23 05:12 05:21 WBC 17.3 H RBC 3.83 L Hgb 10.6 L Hct 32.0 L MCV 83.6 MCH 27.7 MCHC 33.1 RDW 13.9 Plt Count 126 L MPV 10.6 Immature Gran % (Auto) 1.7 H Neut % (Auto) 83.5 H Lymph % (Auto) 9.5 L [place] % (Auto) 3.9 Eos % (Auto) 0.9 Baso % (Auto) 0.5 Lymph # (Auto) 1.6 [place] # (Auto) 0.7 Eos # (Auto) 0.2 Baso # (Auto) 0.1 Abs Immat Gran (auto) 0.30 H Absolute Neuts (auto) 14.4 H Absolute Nucleated RBC 0.060 H Nucleated RBC % (auto) 0.3 H VBG pH 7.47 H VBG pCO2 29 VBG pO2 48 VBG HCO3 21 L VBG O2 Saturation 77.0 VBG Base Excess -1.1 Sodium 146 H Potassium 3.9 Chloride 113 H Carbon Dioxide 19 L Anion Gap 18 BUN 34 H Creatinine 1.89 H Estim Creat Clear Calc 78.8 Estimated GFR 41 Random Glucose 108 Calcium 8.6 Phosphorus 2.6 L Magnesium 2.3 Total Creatine Kinase 4929 H Albumin 3.1 L Microbiology Microbiology Results: Microbiology 02/04/23 16:33 Blood - Venous Blood Culture - Preliminary No growth after 48 hours. 02/04/23 15:32 Blood - Venous Blood Culture - Preliminary No growth after 48 hours. 02/05/23 07:25 Sputum - Suctioned Gram Stain - Final 02/05/23 07:25 Sputum - Suctioned Sputum Culture - Preliminary Culture in progress. Progress Note: A&P Assessment and plan (1) Toxic encephalopathy: Status: Acute (2) Acute respiratory failure with hypoxia: Status: Acute (3) Polysubstance abuse: Status: Acute (4) Acute renal failure due to rhabdomyolysis: Status: Acute (5) Aspiration pneumonia: Status: Acute Plan Assessment: 32-year-old gentleman admitted with polysubstance abuse, agitation, aspiration pneumonitis versus pneumonia, rhabdomyolysis, and acute kidney injury, now requiring ventilatory support. Plan: Neuro: Acute toxic encephalopathy secondary to polysubstance abuse. Underlying seizure disorder. Continue on Keppra. Cardiac: No acute issues. Pulmonary: acute respiratory failure with hypoxia secondary to pulmonary aspiration Now requiring ventilatory support. Continue to titrate off ventilatory support as tolerated. FiO2 requirements improving. Renal: Acute renal failure and rhabdomyolysis, improving. Continue to monitor renal indices and urine output. Endo: No acute issues. GI: Transaminitis, likely secondary to polysubstance abuse , improving. ID: empirically covered for aspiration pneumonitis versus pneumonia. Heme/Onc: No acute issues. Psych: No acute issues. Miscellaneous: No acute issues. Prophylaxis: heparin, famotidine Diet: nothing by mouth Critical care time spent: 60 minutes Quality Stroke Does the patient have a stroke diagnosis?: No VTE Prior VTE?: No VTE Risk Level:: Medical - moderate - high VTE Device Contraindication: N/A - Device Ordered VTE Drug Contraindication: N/A - Med Ordered
[2023-02-07] MEDS: fentaNYL citrate/NS 1,000 MCG/100 ML PLAST..BAG 2.5 MCG IVCONT (21:06)
[2023-02-07] MEDS: dexmedeTOMIDidine HCL/NS 400 MCG/100 ML INFUS..BTL 32.7 MCG IVCONT (21:32)
[2023-02-07] MEDS: propofoL 1,000 MG/100 ML VIAL 33.68 MG IVCONT (22:04)
[2023-02-08] VITALS (35 sets, daily range): BP systolic 138–167; BP diastolic 50–104; PULSE 73–124; RESP 17–50; TEMP 34.7–40; O2SAT 83–98; BMI 43.6
[2023-02-08] MEDS: propofoL 1,000 MG/100 ML VIAL 33.68 MG IVCONT ×4 (00:28→09:35)
[2023-02-08] MEDS: Ampicillin Sodium/Sulbactam Na 3 GM in 0.9 % Sodium Chloride 100 ML IV ×4 (00:29→18:17)
[2023-02-08] MEDS: dexmedeTOMIDidine HCL/NS 400 MCG/100 ML INFUS..BTL 32.7 MCG IVCONT ×5 (00:45→12:30)
[2023-02-08] MEDS: levETIRAcetam in NaCl (iso-os) 1,000 MG/100 ML PIGGYBACK 400 MG IV ×2 (03:23→16:59)
[2023-02-08] MEDS: Heparin Sodium,Porcine 5,000 UNIT/ML VIAL 5000 UNIT SUBCUT ×3 (03:27→20:29)
--- NOTE | 2023-02-08 04:34 | PC.NURSE ---
Assumed care at 1900. Patient on PC vent settings O2 @ 50%. Patient with bouts of coughing, that required a one time dose of 50mcg fentanyl, with good effect. Patient continued with coughing with oral care, inline suction or movement. Fentanyl gtt was initiated to assist with vent synchrony. Precedex decreased at this time related to heart rate dropping to 58-59. Patient with no major turns, per MD. Position changes minimized related to increased risk for coughing and ETT stability. SUPPRESSION CREW LEADER aware.
[2023-02-08 05:00] LABS: VBG Base Excess -0.2 mmol/L; VBG HCO3 23 mmol/L (22-26); VBG pCO2 34 mmHg; VBG pH 7.43 (7.32-7.43); VBG pO2 54 mmHg
[2023-02-08 05:02] LABS: Venous Blood Gas Refer to POC result
[2023-02-08 05:32] LABS: MANUAL DIFF FLAG NO
[2023-02-08 05:34] LABS: Basophils Absolute Auto 0.1 X10*3/uL (0.0-0.2); Basophils Percent Auto 0.5 % (0-2); Eosinophils Absolute Auto 0.4 X10*3/uL (0.0-0.4); Eosinophils Percent Auto 2.5 % (0-4); Hematocrit 32.4 % (42.0-52.0); Hemoglobin 10.7 g/dl (14.0-18.0); Imm Gran Abs Auto 0.43 X10*3/uL (0.00-0.03); Imm Gran Pct Auto 2.9 % (0.0-0.4); Lymphocytes Absolute Auto 1.4 X10*3/uL (1.2-4.9); Mean Corpuscular Hemoglobin 27.6 pg (27.0-33.0); Mean Corpuscular Volume 83.7 fL (80.0-98.0); Mean Platelet Volume 10.5 fL (9.4-12.4); Monocytes Absolute Auto 0.9 X10*3/uL (0.1-1.2); Monocytes Percent Auto 6.1 % (2-11); NRBC Pct Auto 0.2 /100WBC (0.0-0.2); Neutrophils Absolute Auto 11.9 x10*3/uL (2.0-8.3); Platelet Count 139 X10*3/uL (160-400); Red Blood Count 3.87 X10*6/uL (4.60-5.80); Red Cell Distribution Width 14.4 % (11.0-16.0)
[2023-02-08 05:50] LABS: Alanine Aminotransferase 422 U/L (0-40); Albumin Level 2.9 g/dL (3.5-5.0); Alkaline Phosphatase 122 U/L (39-117); Anion Gap 17 (12-20); Aspartate Amino Transferase 162 U/L (5-37); Bilirubin Total 0.5 mg/dL (0.0-1.0); Blood Urea Nitrogen 30 mg/dL (9-16); Calcium 8.8 mg/dL (8.4-10.2); Carbon Dioxide 21 mmol/L (22-29); Chloride 115 mmol/L (96-108); Creatinine Clr Calc Pharmacy 92.5; Estimated Glomerular Filt Rate 50; Glucose Random 94 mg/dL (60-115); Magnesium 2.4 mg/dL (1.6-2.6); Phosphorus 3.4 mg/dL (2.7-4.5); Potassium 3.8 mmol/L (3.3-5.1); Sodium 149 mmol/L (135-145); Total Protein 6.5 g/dL (6.5-8.0)
[2023-02-08] MEDS: Pantoprazole Sodium 40 MG in 0.9 % Sodium Chloride 100 ML 400 MG IV (06:06)
[2023-02-08] MEDS: Albumin Human 25 % 100 ML IV ×3 (06:22→17:23)
[2023-02-08] MEDS: Chlorhexidine Gluc Oral Rinse 15 ML MOUTHWASH BUCCAL ×2 (07:58→14:43)
[2023-02-08] MEDS: fentaNYL citrate/NS 1,000 MCG/100 ML PLAST..BAG 7.5 MCG IVCONT (09:06)
--- NOTE | 2023-02-08 09:58 | MHC.CLN ---
F/U PT IS INTUBATED AND SEDATED DISCUSSED AT MD ROUNDS. IF TF NEEDED; RECOMMEND TF PROMOTE AT 30ML/HR WITH 240ML FWF Q 6 HRS TO PROVIDE 720KCALS (1708KCALS WITH SEDATION; 23KCALS/KG BASED ON IBW), 45G PROTEIN, 1564ML TOTAL WATER FROM FORMULA AND FLUSHES (20.8ML/KG). MONITOR TOLERANCE, RESIDUALS AND LYTES.
--- NOTE | 2023-02-08 10:44 | MHC.CM.PN ---
Pt continues care in ICU: vented and on pressors: goals of care today are to reduce sedation to assess for return of neurological functioning and extubation ability. Call placed to pt's aunt/next of contact Zuleyma. She states pt had 10 months of sobriety in a half way house following release from incarceration and detox. He was working and saving money per Zuleyma but moved out of the sober house d/t them charging him for room and board. He went to live with his mother in [place] and relapsed. 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 Pt sees providers at [facility]. No HCP on file. D/C planning is ongoing and will follow pt's clinical progress.
--- NOTE | 2023-02-08 11:54 | P.PNCC_ITS ---
Subjective Subjective Date of Service: 02/08/23 Interval History: 32-year-old gentleman with underlying history seizures, encephalocele repair, polysubstance abuse admitted on 02/04/2023 after being unresponsive by his family. On ER evaluation patient With polysubstance abuse, acute renal failure, rhabdomyolysis and agitation requiring multiple sedatives and with escalating FiO2 requirements, eventually requiring intubation for airway protection. Admitted to the intensive care unit. Started on empiric antibiotics and IV fluid support. No events overnight. Critical Care Time (minutes): 45 Physical Exam 2 Vital Signs: Vital Signs: Last Vital Signs Temp 102.0 F H 02/08/23 10:00 Pulse 119 H 02/08/23 11:00 Resp 42 H 02/08/23 11:00 BP 165/87 H 02/08/23 11:00 Pulse Ox 91 L 02/08/23 11:00 O2 Del Method Mechanical Ventil ation 02/08/23 11:00 O2 Flow Rate 16 02/04/23 18:27 FiO2 50 02/08/23 11:16 BMI result Body Mass Index 43.6 Const: General: no acute distress and other (Sedated on the vent) N utritional Appearance: obese Eyes: Sclerae: sclerae normal EOM: EOMs intact bilaterally Neck: Neck: Yes no lymphadenopathy, Yes trachea midline and Yes supple Resp: Auscultation: rales (Mild bilateral) Cardio: Rate: tachycardic Rhythm: regular rhythm Heart sounds: no gallops, no murmurs and no rubs GI: Palpation (GI): Soft to palpation and Other GI palpation findings present ( Nontender) Auscultation: normal bowel sounds Extrem: General: No clubbing, No cyanosis and Yes edema (Trace bilateral) Objective Data Labs 02/08/23 04:53 02/08/23 04:53 Labs: Laboratory Results - last 24 hr 02/08/23 04:53 WBC 15.0 H RBC 3.87 L Hgb 10.7 L Hct 32.4 L MCV 83.7 MCH 27.6 MCHC 33.0 RDW 14.4 Plt Count 139 L MPV 10.5 Immature Gran % (Auto) 2.9 H Neut % (Auto) 79.0 H Lymph % (Auto) 9.0 L [place] % (Auto) 6.1 Eos % (Auto) 2.5 Baso % (Auto) 0.5 Lymph # (Auto) 1.4 [place] # (Auto) 0.9 Eos # (Auto) 0.4 Baso # (Auto) 0.1 Abs Immat Gran (auto) 0.43 H Absolute Neuts (auto) 11.9 H Absolute Nucleated RBC 0.030 H Nucleated RBC % (auto) 0.2 VBG pH 7.43 VBG pCO2 34 VBG pO2 54 VBG HCO3 23 VBG O2 Saturation 82.0 VBG Base Excess -0.2 Sodium 149 H Potassium 3.8 Chloride 115 H Carbon Dioxide 21 L Anion Gap 17 BUN 30 H Creatinine 1.61 H Estim Creat Clear Calc 92.5 Estimated GFR 50 Random Glucose 94 Calcium 8.8 Phosphorus 3.4 Magnesium 2.4 Total Bilirubin 0.5 AST 162 H ALT 422 H Alkaline Phosphatase 122 H Total Creatine Kinase 2290 H Total Protein 6.5 Albumin 2.9 L Microbiology Microbiology Results: Microbiology 02/05/23 07:25 Sputum - Suctioned Gram Stain - Final 02/05/23 07:25 Sputum - Suctioned Sputum Culture - Final 02/04/23 16:33 Blood - Venous Blood Culture - Preliminary No growth after 48 hours. 02/04/23 15:32 Blood - Venous Blood Culture - Preliminary No growth after 48 hours. Progress Note: A&P Assessment and plan (1) Toxic encephalopathy: Status: Acute (2) Acute respiratory failure with hypoxia: Status: Acute (3) Polysubstance abuse: Status: Acute (4) Acute renal failure due to rhabdomyolysis: Status: Acute Plan Assessment: 32-year-old gentleman admitted with polysubstance abuse, agitation, aspiration pneumonitis versus pneumonia, rhabdomyolysis, and acute kidney injury, now requiring ventilatory support. Plan: Neuro: Acute toxic encephalopathy secondary to polysubstance abuse. Underlying seizure disorder. Continue on Keppra. Cardiac: No acute issues. Pulmonary: acute respiratory failure with hypoxia secondary to pulmonary aspiration Now requiring ventilatory support. Continue to titrate off ventilatory support as tolerated. Renal: Acute renal failure and rhabdomyolysis, improving. Continue to monitor renal indices and urine output. Endo: No acute issues. GI: Transaminitis, likely secondary to polysubstance abuse, improving. ID: Empirically covered for aspiration pneumonitis versus pneumonia. Heme/Onc: No acute issues. Psych: No acute issues. Miscellaneous: No acute issues. Prophylaxis: heparin, famotidine Diet: nothing by mouth Critical care time spent: 60 minutes Quality Stroke Does the patient have a stroke diagnosis?: No VTE Prior VTE?: No VTE Risk Level:: Medical - moderate - high VTE Device Contraindication: N/A - Device Ordered VTE Drug Contraindication: N/A - Med Ordered
[2023-02-08] MEDS: fentaNYL citrate/PF 100 MCG/2 ML VIAL IVPUSH ×2 (14:59→16:22)
[2023-02-08] MEDS: dexmedeTOMIDidine HCL/NS 400 MCG/100 ML INFUS..BTL 49.05 MCG IVCONT ×5 (15:00→23:09)
[2023-02-08] MEDS: cloNIDine 0.2 MG PATCH.TDWK TRANSDERMA (15:01)
[2023-02-08] MEDS: Haloperidol Lactate 5 MG/ML VIAL IVPUSH ×2 (15:50→20:19)
[2023-02-08] MEDS: diphenhydrAMINE HCL 50 MG/ML VIAL IVPUSH (16:22)
[2023-02-08] MEDS: fentaNYL citrate/NS 1,000 MCG/100 ML PLAST..BAG 10 MCG IVCONT ×2 (16:22→23:52)
[2023-02-08] MEDS: propofoL 200 MG/20 ML VIAL 20 MG IVPUSH (16:47)
[2023-02-08] MEDS: Acetaminophen 1,000 MG/100 ML PIGGYBACK 400 MG IV (17:02)
[2023-02-08 19:53] LABS: ABG Base Excess -3.5 mmol/L; ABG HCO3 18 mmol/L (22-26); ABG pCO2 25 mmHg (32-45); ABG pH 7.47 (7.35-7.45); ABG pO2 58 mmHg (83-108)
[2023-02-08 20:00] LABS: ABG Refer to POC result
[2023-02-08] MEDS: Midazolam HCl/PF 2 MG/2 ML VIAL IVPUSH ×2 (20:15→23:55)
[2023-02-08] MEDS: Albumin Human 25 % 100 ML 200 ML IV (23:54)
[2023-02-09] VITALS (43 sets, daily range): BP systolic 103–200; BP diastolic 41–120; PULSE 3–149; RESP 16–56; TEMP 35.1–39.7; O2SAT 63–96; BMI 42.5
[2023-02-09] MEDS: Ampicillin Sodium/Sulbactam Na 3 GM in 0.9 % Sodium Chloride 100 ML IV ×4 (00:09→18:27)
[2023-02-09] MEDS: dexmedeTOMIDidine HCL/NS 400 MCG/100 ML INFUS..BTL 49.05 MCG IVCONT ×6 (01:15→11:10)
[2023-02-09] MEDS: propofoL 200 MG/20 ML VIAL 20 MG IVPUSH (02:38)
[2023-02-09] MEDS: Midazolam HCl/PF 2 MG/2 ML VIAL 4 MG IVPUSH (03:01)
[2023-02-09] MEDS: levETIRAcetam in NaCl (iso-os) 1,000 MG/100 ML PIGGYBACK 400 MG IV ×2 (03:40→15:13)
[2023-02-09] MEDS: Heparin Sodium,Porcine 5,000 UNIT/ML VIAL 5000 UNIT SUBCUT ×3 (03:42→19:20)
[2023-02-09 04:57] LABS: VBG Base Excess -5.4 mmol/L; VBG HCO3 18 mmol/L (22-26); VBG pCO2 32 mmHg; VBG pH 7.37 (7.32-7.43); VBG pO2 52 mmHg
[2023-02-09] MEDS: Albumin Human 25 % 100 ML 200 ML IV (05:19)
[2023-02-09 05:34] LABS: Hematocrit 27.8 % (42.0-52.0); Mean Corpuscular HGB Conc 32.4 g/dl (31.0-36.0); Mean Corpuscular Hemoglobin 28.1 pg (27.0-33.0); Mean Corpuscular Volume 86.9 fL (80.0-98.0); Mean Platelet Volume 11.4 fL (9.4-12.4); NRBC Pct Auto 0.1 /100WBC (0.0-0.2); Platelet Count 151 X10*3/uL (160-400); Red Cell Distribution Width 14.7 % (11.0-16.0)
[2023-02-09 05:41] LABS: Venous Blood Gas Refer to POC result
[2023-02-09] MEDS: Pantoprazole Sodium 40 MG in 0.9 % Sodium Chloride 100 ML 400 MG IV (05:43)
[2023-02-09] MEDS: Midazolam HCl/PF 2 MG/2 ML VIAL 4 MG IM (05:49)
[2023-02-09 05:59] LABS: Alanine Aminotransferase 285 U/L (0-40); Albumin Level 3.6 g/dL (3.5-5.0); Alkaline Phosphatase 93 U/L (39-117); Anion Gap 21 (12-20); Aspartate Amino Transferase 165 U/L (5-37); Bilirubin Total 0.8 mg/dL (0.0-1.0); Blood Urea Nitrogen 29 mg/dL (9-16); Calcium 8.7 mg/dL (8.4-10.2); Carbon Dioxide 17 mmol/L (22-29); Chloride 123 mmol/L (96-108); Creatinine Clr Calc Pharmacy 93.6; Estimated Glomerular Filt Rate 51; Glucose Random 91 mg/dL (60-115); Magnesium 2.4 mg/dL (1.6-2.6); Phosphorus 3.7 mg/dL (2.7-4.5); Potassium 3.7 mmol/L (3.3-5.1); Sodium 157 mmol/L (135-145); Total Protein 6.7 g/dL (6.5-8.0)
[2023-02-09 06:00] LABS: Band Neutrophils Percent 6 % (3-5); Lymphocytes Absolute Manual 1.3 X10*3/uL (1.2-4.9); Lymphocytes Percent Manual 8 % (20-40); Metamyelocytes Absolute 0.3 X10*3/uL; Metamyelocytes Percent 2 %; Monocytes Absolute Manual 0.5 X10*3/uL (0.1-1.2); Monocytes Percent Manual 3 % (2-11); Neutrophils Absolute Manual 13.9 X10*3/uL (2.0-8.3); Neutrophils Percent Manual 81 % (45-73)
[2023-02-09 06:03] LABS: Ovalocytes 1+ (5-14) /OIF; Platelet Estimate NORMAL (NORMAL); Platelet Morphology Comment NORMAL; RBC Morphology NOTED; Schistocytes 1+ (0-2) /OIF
[2023-02-09 06:04] LABS: Hypochromasia 1+ (5-14) /OIF
[2023-02-09 06:05] LABS: Dohle Bodies PRESENT; Polychromasia 1+ (0-2) /OIF; Toxic Granulation PRESENT; Toxic Vacuolation PRESENT
--- NOTE | 2023-02-09 06:08 | PC.NURSE ---
Assumed care of patient at 1900. Patient on hiflo NC 60L 100%. Patient with O2 sats 86-89% with high respiratory rate. Tammie Quigley NP notified. Place on non rebreather with high libby for mouth breathing, see emar for medication administration times, (midazolam and haldol). Patient maintained on precedex and fentanyl drips. At 0015 Dr. Marie at bedside, would like patient to be placed on CPAP. Respiratory notified. Patient placed on CPAP 12 100% at 0100. Nurse and/or AUTO SERVICE DISPATCHER at bedside while CPAP is in use. Cooling blanket maintained under patient throughout the shift.
[2023-02-09] MEDS: Furosemide 40 MG/4 ML VIAL IVPUSH ×2 (09:08→12:49)
[2023-02-09] MEDS: Dextrose 5 % 1,000 ML 250 ML IVCONT ×3 (09:37→17:31)
[2023-02-09] MEDS: fentaNYL citrate/NS 1,000 MCG/100 ML PLAST..BAG 12.5 MCG IVCONT (09:44)
[2023-02-09] MEDS: Nitroglycerin 2 % Oint 1 GM Packet 1 INCH TRANSDERMA (09:53)
--- NOTE | 2023-02-09 10:19 | PC.NURSE ---
Addendum entered by Fifi Ibarra RN 02/09/23 19:14: Pt tolerating CPAP and slept in naps 12:00-14:00 14:00 patient awake, kicking legs, attempting to get leg OOB. Pt reoriented. RT called to bedside to assist with mouth care for pt on HFNC + NRB. Pt maintained SaO2 87% for 15 minutes, then required CPAP mask due to low SaO2 82%. Pt continued to have RASS 2+ and agitation. Pt denies anxiety or nervousness. Pt had increased respiratory effort, abdominal breathing, RR 50, SBP 160s 14:24 Per MD administered 5 mg Haldol prn IVP, minimal effect. 14:31 MD administered 30mg Propofol IVP, minimal effect on respiratory status or agitation 14:53 administered 2 mg versed per MD. MD evaluated patient, plan for intubation. 2 RNs, MD, and RT at bedside. 15:40 200 mg Propofol IVP given in increments of 100mg. 15:42 ET tube placed 8.0 27@ lip. Placement confirmed by EtCo2 colorimetry. Vent settings PC 20/24/10.0/100%. 15:43 vital signs HR 159, RR 42, BP 189/81, SaO2 60%. Bronchoscopy initiated by MD. Per MD 20 Nimbex IVP given, effective and pt RR decreased to 20. 15:53 vent settings adjusted PC 20/24/PEEP 15.0/100%. 15:56 ABGs obtained 16:08 CXR obtained to confirm ET tube placement. 16:39 MD notified temperature increased to 103.5F. Per MD continue cooling blanket. 16:35 5 mg Lopressor IVP given for elevated BP and HR 16:55 Patient vital signs stabilized. BP 108/50, HR 112, SaO2 91%, RR 33. PEEP decreased to 10.0 . New peripheral IV placed 22 to right hand with blood return. 17:56 Levo gtt started @0.05 for MAP 59. Per protocol for MAP goal >65. Patient aunt/HCP Zuleyma updated via phone. High fall precautions in place Original Note: Assumed care of patient 07:00 Pt wearing CPAP rate 12, 100%. Pt restless/agitated at times, needing frequent reassurance and reorientation. A+Ox1, pt asks if he is in [place], asked how did I get here? 08:20 Pt agitated, states dry mouth. RT called to bedside. Trialed changing patient to HFNC 55L 100% + 15L NRB. Pt desaturated to SaO2 79-82%. Mouth care provided for pt and pt placed back on CPAP rate 12, FiO2 100%. SaO2 imrpoved to 92-94%. 09:00 Expiratory ronchi throughout lung padgett, course crackles to bases. Lasix 40 mg IVP given. New CXR ordered. 09:26 New chest x-ray captured - pulmonary edema. 09:40 per MD, D5W @ 250 ml/hr started for increased Na+ level. 09:52 Nitro paste 1 inch applied to left upper chest for increased blood pressures 177/102. 10:18 BP improved to 164/98. aware.
--- NOTE | 2023-02-09 12:12 | P.PNCC_ITS ---
Subjective Subjective Date of Service: 02/09/23 Interval History: 32-year-old gentleman with underlying history seizures, encephalocele repair, polysubstance abuse admitted on 02/04/2023 after being unresponsive by his family. On ER evaluation patient With polysubstance abuse, acute renal failure, rhabdomyolysis and agitation requiring multiple sedatives and with escalating FiO2 requirements, eventually requiring intubation for airway protection. Admitted to the intensive care unit. Started on empiric antibiotics and IV fluid support. Rhabdomyolysis essentially resolved. Extubated on 02/08/2023, however still with significant hypoxia and pulmonary edema, now requiring CPAP support. No events overnight. FiO2 requirements and edema are improving with diuresis. Critical Care Time (minutes): 45 Physical Exam 2 Vital Signs: Vital Signs: Last Vital Signs Temp 99.9 F 02/09/23 12:00 Pulse 96 02/09/23 12:00 Resp 41 H 02/09/23 12:00 BP 142/87 H 02/09/23 12:00 Pulse Ox 94 02/09/23 12:00 O2 Del Method CPAP 02/09/23 12:00 O2 Flow Rate 60 02/09/23 00:00 FiO2 100 02/09/23 12:00 BMI result Body Mass Index 42.5 Const: General: no acute distress, awake and confusion Nutritional Appearance: obese and Edematous Orientation/consciousness: confusion Eyes: Sclerae: sclerae normal EOM: EOMs intact bilaterally Neck: Neck: Yes no lymphadenopathy, Yes trachea midline and Yes supple Resp: Effort & Inspection: tachypneic Auscultation: crackles (Bilateral) Cardio: Rate: regular rate Rhythm: regular rhythm Heart sounds: no gallops, no murmurs and no rubs GI: Palpation (GI): Soft to palpation and Other GI palpation findings present ( Nontender) Auscultation: normal bowel sounds Neuro: General: confusion Extrem: General: No clubbing, No cyanosis and Yes edema (2+ bilateral) Objective Data Labs 02/09/23 04:38 02/09/23 04:38 Labs: Laboratory Results - last 24 hr 02/08/23 02/09/23 02/09/23 19:46 04:38 04:49 WBC 16.0 H RBC 3.20 L Hgb 9.0 L Hct 27.8 L MCV 86.9 MCH 28.1 MCHC 32.4 RDW 14.7 Plt Count 151 L MPV 11.4 Immature Gran % (Auto) Cancelled Neut % (Auto) Cancelled Lymph % (Auto) Cancelled [place] % (Auto) Cancelled Eos % (Auto) Cancelled Baso % (Auto) Cancelled Lymph # (Auto) Cancelled [place] # (Auto) Cancelled Eos # (Auto) Cancelled Baso # (Auto) Cancelled Abs Immat Gran (auto) Cancelled Absolute Neuts (auto) Cancelled Absolute Nucleated RBC 0.020 H Nucleated RBC % (auto) 0.1 Neutrophils % (Manual) 81 H Band Neutrophils % 6 H Lymphocytes % (Manual) 8 L Monocytes % (Manual) 3 Metamyelocytes % 2 Abs Neuts (Manual) 13.9 H Lymphocytes # (Manual) 1.3 Monocytes # (Manual) 0.5 Metamyelocytes # 0.3 Toxic Granulation PRESENT Toxic Vacuolation PRESENT Dohle Bodies PRESENT Platelet Estimate NORMAL Plt Morphology Comment NORMAL RBC Morphology NOTED Polychromasia 1+ (0-2) Hypochromasia 1+ (5-14) Ovalocytes 1+ (5-14) Schistocytes 1+ (0-2) O2 Saturation 87.0 ABG pH at Pt Temp 7.47 H ABG pCO2 at Pt Temp 25 L ABG pO2 at Pt Temp 58 L ABG HCO3 18 L ABG Base Excess (Actual) -3.5 VBG pH 7.37 VBG pCO2 32 VBG pO2 52 VBG HCO3 18 L VBG O2 Saturation 79.0 VBG Base Excess -5.4 Sodium 157 H Potassium 3.7 Chloride 123 H Carbon Dioxide 17 L Anion Gap 21 H BUN 29 H Creatinine 1.57 H Estim Creat Clear Calc 93.6 Estimated GFR 51 Random Glucose 91 Calcium 8.7 Phosphorus 3.7 Magnesium 2.4 Total Bilirubin 0.8 AST 165 H ALT 285 H Alkaline Phosphatase 93 Total Protein 6.7 Albumin 3.6 Microbiology Microbiology Results: Microbiology 02/05/23 07:25 Sputum - Suctioned Gram Stain - Final 02/05/23 07:25 Sputum - Suctioned Sputum Culture - Final 02/04/23 16:33 Blood - Venous Blood Culture - Preliminary No growth after 48 hours. 02/04/23 15:32 Blood - Venous Blood Culture - Preliminary No growth after 48 hours. Progress Note: A&P Assessment and plan (1) Toxic encephalopathy: Status: Acute (2) Acute respiratory failure with hypoxia: Status: Acute (3) Polysubstance abuse: Status: Acute (4) Acute renal failure due to rhabdomyolysis: Status: Acute (5) Seizure: Status: Acute Plan Assessment: 32-year-old gentleman admitted with polysubstance abuse, agitation, aspiration pneumonitis versus pneumonia, rhabdomyolysis, and acute kidney injury, now requiring ventilatory support. Plan: Neuro: Acute toxic encephalopathy secondary to polysubstance abuse. Underlying seizure disorder. Continue on Keppra. Cardiac: No acute issues. Pulmonary: acute respiratory failure with hypoxia secondary to pulmonary aspiration, initially requiring ventilatory support. Extubated 02/08/2023. Now with significant pulmonary edema requiring CPAP support. Continue to titrate off CPAP support as tolerated. Renal: Acute renal failure and rhabdomyolysis, improving. Continue to monitor renal indices and urine output. Continue diuresis. Endo: No acute issues. GI: Transaminitis, likely secondary to polysubstance abuse, improving. ID: Empirically covered for aspiration pneumonitis versus pneumonia. Heme/Onc: No acute issues. Psych: No acute issues. Miscellaneous: No acute issues. Prophylaxis: heparin Diet: nothing by mouth Critical care time spent: 45 minutes Quality Stroke Does the patient have a stroke diagnosis?: No VTE Prior VTE?: No VTE Risk Level:: Medical - moderate - high VTE Device Contraindication: N/A - Device Ordered VTE Drug Contraindication: N/A - Med Ordered
[2023-02-09] MEDS: Haloperidol Lactate 5 MG/ML VIAL IVPUSH (14:24)
--- NOTE | 2023-02-09 14:30 | MHC.CM.PN ---
Pt has been extubated and is verbal but still not oriented x 4. Will reapproach pt to complete HCP - pt was independent prior to admission living with his mother. It is unknown if he will require STR placement - PT eval would be needed. CM to follow.
[2023-02-09] MEDS: dexmedeTOMIDidine HCL/NS 400 MCG/100 ML INFUS..BTL 26.16 MCG IVCONT (14:35)
[2023-02-09] MEDS: propofoL 200 MG/20 ML VIAL 30 MG IVPUSH (14:37)
[2023-02-09] MEDS: Midazolam HCl/PF 2 MG/2 ML VIAL IVPUSH (14:53)
[2023-02-09] MEDS: propofoL 200 MG/20 ML VIAL IVPUSH (15:40)
[2023-02-09] MEDS: Cisatracurium Besylate 20 MG/10 ML VIAL IVPUSH (15:46)
[2023-02-09] MEDS: propofoL 1,000 MG/100 ML VIAL 24.21 MG IVCONT (15:48)
--- NOTE | 2023-02-09 16:02 | W.PM.CCHP ---
Procedures Date of Service Date of Service: 02/09/23 Intubation Intubation Comments: Patient with progressive hypoxia refractory to high-flow and noninvasive positive pressure ventilatory support requiring emergent intubation. Intubated with 8.5 cuffed ET tube under glide scope guidance with no immediate complications. X-ray for ET tube position is pending.
[2023-02-09 16:03] LABS: ABG Base Excess -1.9 mmol/L; ABG HCO3 26 mmol/L (22-26); ABG pCO2 60 mmHg (32-45); ABG pH 7.24 (7.35-7.45); ABG pO2 46 mmHg (83-108)
[2023-02-09] MEDS: Potassium Chloride/H20 10 MEQ/100 ML PIGGYBACK 100 MEQ IV ×4 (16:24→19:42)
[2023-02-09 16:29] LABS: ABG Refer to POC result
[2023-02-09] MEDS: Metoprolol Tartrate 5 MG/5 ML VIAL IVPUSH (16:35)
[2023-02-09 17:41] LABS: Anion Gap 16 (12-20); Blood Urea Nitrogen 28 mg/dL (9-16); Calcium 8.7 mg/dL (8.4-10.2); Carbon Dioxide 22 mmol/L (22-29); Chloride 119 mmol/L (96-108); Creatinine Clr Calc Pharmacy 96.6; Estimated Glomerular Filt Rate 54; Glucose Random 174 mg/dL (60-115); Potassium 3.9 mmol/L (3.3-5.1); Sodium 153 mmol/L (135-145)
[2023-02-09] MEDS: propofoL 1,000 MG/100 ML VIAL 32.28 MG IVCONT (17:47)
[2023-02-09] MEDS: Norepinephrine Bitartrate/D5W 8 MG/250 ML PLAST..BAG 12.61 MG IV (17:56)
[2023-02-09] MEDS: dexmedeTOMIDidine HCL/NS 400 MCG/100 ML INFUS..BTL 32.7 MCG IVCONT ×2 (18:11→21:08)
[2023-02-09] MEDS: Chlorhexidine Gluc Oral Rinse 15 ML MOUTHWASH BUCCAL (19:19)
[2023-02-09] MEDS: propofoL 1,000 MG/100 ML VIAL 40.35 MG IVCONT ×2 (20:14→22:50)
[2023-02-09] MEDS: fentaNYL citrate/NS 1,000 MCG/100 ML PLAST..BAG 5 MCG IVCONT (20:15)
[2023-02-10] VITALS (34 sets, daily range): BP systolic 109–150; BP diastolic 59–98; PULSE 78–102; RESP 26–48; TEMP 34.9–39.3; O2SAT 89–95; BMI 42.3
[2023-02-10] MEDS: dexmedeTOMIDidine HCL/NS 400 MCG/100 ML INFUS..BTL 32.7 MCG IVCONT ×7 (00:08→17:36)
[2023-02-10] MEDS: Ampicillin Sodium/Sulbactam Na 3 GM in 0.9 % Sodium Chloride 100 ML IV ×4 (00:08→18:46)
[2023-02-10] MEDS: propofoL 1,000 MG/100 ML VIAL 40.35 MG IVCONT ×11 (01:13→23:43)
[2023-02-10] MEDS: Heparin Sodium,Porcine 5,000 UNIT/ML VIAL 5000 UNIT SUBCUT ×3 (03:21→19:53)
[2023-02-10] MEDS: levETIRAcetam in NaCl (iso-os) 1,000 MG/100 ML PIGGYBACK 400 MG IV ×2 (03:23→15:46)
[2023-02-10 05:07] LABS: VBG Base Excess 2.3 mmol/L; VBG HCO3 24 mmol/L (22-26); VBG pCO2 30 mmHg; VBG pH 7.51 (7.32-7.43); VBG pO2 68 mmHg
[2023-02-10 05:10] LABS: Venous Blood Gas Refer to POC result
[2023-02-10 05:33] LABS: MANUAL DIFF FLAG NO
[2023-02-10 05:35] LABS: Basophils Absolute Auto 0.1 X10*3/uL (0.0-0.2); Basophils Percent Auto 0.6 % (0-2); Eosinophils Absolute Auto 0.2 X10*3/uL (0.0-0.4); Eosinophils Percent Auto 1.3 % (0-4); Hematocrit 27.4 % (42.0-52.0); Imm Gran Abs Auto 0.38 X10*3/uL (0.00-0.03); Imm Gran Pct Auto 2.2 % (0.0-0.4); Lymphocytes Absolute Auto 1.7 X10*3/uL (1.2-4.9); Lymphocytes Percent Auto 9.6 % (20-40); Mean Corpuscular HGB Conc 32.8 g/dl (31.0-36.0); Mean Corpuscular Hemoglobin 27.9 pg (27.0-33.0); Mean Corpuscular Volume 84.8 fL (80.0-98.0); Mean Platelet Volume 11.4 fL (9.4-12.4); Monocytes Absolute Auto 0.6 X10*3/uL (0.1-1.2); Monocytes Percent Auto 3.6 % (2-11); Neutrophils Absolute Auto 14.4 x10*3/uL (2.0-8.3); Neutrophils Percent Auto 82.7 % (45-73); Platelet Count 190 X10*3/uL (160-400); Red Blood Count 3.23 X10*6/uL (4.60-5.80); White Blood Count 17.4 X10*3/uL (4.8-10.8)
[2023-02-10 05:51] LABS: Albumin Level 3.1 g/dL (3.5-5.0); Anion Gap 13 (12-20); Blood Urea Nitrogen 30 mg/dL (9-16); Calcium 8.5 mg/dL (8.4-10.2); Carbon Dioxide 24 mmol/L (22-29); Chloride 119 mmol/L (96-108); Creatinine Clr Calc Pharmacy 105.4; Estimated Glomerular Filt Rate 60; Glucose Random 121 mg/dL (60-115); Magnesium 2.3 mg/dL (1.6-2.6); Phosphorus 1.6 mg/dL (2.7-4.5); Potassium 3.2 mmol/L (3.3-5.1); Sodium 153 mmol/L (135-145)
[2023-02-10] MEDS: Potassium Phosphate/NS 15 MMOL/250 ML PLAST..BAG 62.5 MMOL IV ×3 (07:30→15:41)
[2023-02-10] MEDS: Chlorhexidine Gluc Oral Rinse 15 ML MOUTHWASH BUCCAL ×3 (07:49→19:53)
[2023-02-10] MEDS: Famotidine/PF 20 MG/2 ML VIAL IVPUSH (08:33)
[2023-02-10] MEDS: Albumin Human 25 % 100 ML IV ×3 (08:33→19:51)
[2023-02-10] MEDS: Potassium Chloride Packet 20 MEQ PACKET 40 MEQ OG-TUBE (08:34)
--- NOTE | 2023-02-10 09:52 | PM.CCPN ---
Subjective Subjective Date of Service: 02/10/23 Interval History: 32-year-old gentleman with underlying history seizures, encephalocele repair, polysubstance abuse admitted on 02/04/2023 after being unresponsive by his family. On ER evaluation patient With polysubstance abuse, acute renal failure, rhabdomyolysis and agitation requiring multiple sedatives and with escalating FiO2 requirements, eventually requiring intubation for airway protection. Admitted to the intensive care unit. Started on empiric antibiotics and IV fluid support. Rhabdomyolysis essentially resolved. Extubated on 02/08/2023, however still with significant hypoxia and pulmonary edema, now requiring CPAP support.On 02/09/2023 with progressive hypoxia refractory to high-flow and CPAP support requiring re-intubation. No events overnight. Critical Care Time (minutes): 60 Physical Exam Vital Signs: Vital Signs: Last Vital Signs Temp 100.4 F 02/10/23 08:00 Pulse 89 02/10/23 09:00 Resp 38 H 02/10/23 09:00 BP 130/78 02/10/23 09:00 Pulse Ox 94 02/10/23 09:00 O2 Del Method Mechanical Ventil ation 02/10/23 09:00 O2 Flow Rate 60 02/09/23 00:00 FiO2 100 02/10/23 09:00 BMI result Body Mass Index 42.3 Const: General: no acute distress and other ( Sedated on the vent) Nutritional Appearance: obese Eyes: Sclerae: sclerae normal EOM: EOMs intact bilaterally Neck: Neck: Yes no lymphadenopathy, Yes trachea midline and Yes supple Resp: Auscultation: crackles ( bilateral) Cardio: Rate: regular rate Rhythm: regular rhythm Heart sounds: no gallops, no murmurs and no rubs GI: Palpation (GI): Soft to palpation and Other GI palpation findings present ( Nontender) Auscultation: normal bowel sounds Extrem: General: No clubbing, No cyanosis and Yes edema ( 1+ bilateral) Objective Data Labs 02/10/23 05:00 02/10/23 05:00 Labs: Laboratory Results - last 24 hr 02/09/23 02/09/23 02/10/23 15:57 17:04 05:00 WBC 17.4 H RBC 3.23 L Hgb 9.0 L Hct 27.4 L MCV 84.8 MCH 27.9 MCHC 32.8 RDW 15.0 Plt Count 190 D MPV 11.4 Immature Gran % (Auto) 2.2 H Neut % (Auto) 82.7 H Lymph % (Auto) 9.6 L [place] % (Auto) 3.6 Eos % (Auto) 1.3 Baso % (Auto) 0.6 Lymph # (Auto) 1.7 [place] # (Auto) 0.6 Eos # (Auto) 0.2 Baso # (Auto) 0.1 Abs Immat Gran (auto) 0.38 H Absolute Neuts (auto) 14.4 H Absolute Nucleated RBC 0.000 Nucleated RBC % (auto) 0.0 O2 Saturation 61.0 ABG pH at Pt Temp 7.24 L ABG pCO2 at Pt Temp 60 H* ABG pO2 at Pt Temp 46 L* ABG HCO3 26 ABG Base Excess (Actual) -1.9 VBG pH 7.51 H VBG pCO2 30 VBG pO2 68 VBG HCO3 24 VBG O2 Saturation 93.0 VBG Base Excess 2.3 Sodium 153 H 153 H Potassium 3.9 3.2 L Chloride 119 H 119 H Carbon Dioxide 22 24 Anion Gap 16 13 BUN 28 H 30 H Creatinine 1.50 H 1.37 Estim Creat Clear Calc 96.6 105.4 Estimated GFR 54 60 Random Glucose 174 H 121 H Calcium 8.7 8.5 Phosphorus 1.6 L Magnesium 2.3 Albumin 3.1 L Microbiology Microbiology Results: Microbiology 02/04/23 16:33 Blood - Venous Blood Culture - Final No growth after 5 days. 02/04/23 15:32 Blood - Venous Blood Culture - Final No growth after 5 days. 02/05/23 07:25 Sputum - Suctioned Gram Stain - Final 02/05/23 07:25 Sputum - Suctioned Sputum Culture - Final Progress Note: A&P Assessment and plan (1) Toxic encephalopathy: Status: Acute (2) Acute respiratory failure with hypoxia: Status: Acute (3) Polysubstance abuse: Status: Acute (4) Aspiration pneumonia: Status: Acute (5) Acute renal failure due to rhabdomyolysis: Status: Acute Plan Assessment: 32-year-old gentleman admitted with polysubstance abuse, agitation, aspiration pneumonitis versus pneumonia, rhabdomyolysis, and acute kidney injury, now requiring ventilatory support. Plan: Neuro: Acute toxic encephalopathy secondary to polysubstance abuse. Underlying seizure disorder. Continue on Keppra. Cardiac: No acute issues. Pulmonary: acute respiratory failure with hypoxia secondary to pulmonary aspiration, initially requiring ventilatory support. Extubated 02/08/2023. reintubated on 02/09/2023 secondary to hypoxia refractory to high-flow /CPAP support. Still with significant pulmonary edema. Continue to titrate off ventilatory support as tolerated. Renal: Acute renal failure and rhabdomyolysis, improving. Continue to monitor renal indices and urine output. Continue diuresis. Endo: No acute issues. GI: Transaminitis, likely secondary to polysubstance abuse, improving. ID: Empirically covered for aspiration pneumonitis versus pneumonia. Heme/Onc: No acute issues. Psych: No acute issues. Miscellaneous: No acute issues. Prophylaxis: heparin Diet: tube feeds Critical care time spent: 60 minutes Quality Stroke Does the patient have a stroke diagnosis?: No VTE Prior VTE?: No VTE Risk Level:: Medical - moderate - high VTE Device Contraindication: N/A - Device Ordered VTE Drug Contraindication: N/A - Med Ordered
--- NOTE | 2023-02-10 10:11 | MHC.CLN ---
F/U PT RE-INTUBATED 02/09/23 DISCUSSED AT ROUNDS WITH MD ISAACS TO START; RECOMMEND PROMOTE AT 30ML/HR WITH 240ML FWF Q 6 HRS TO PROVIDE 720KCALS (1785KCALS WITH SEDATION; 24KCALS/KG BASED ON IBW), 45G PROTEIN, 1564ML TOTAL WATER FROM FORMULA AND FLUSHES (20.8ML/KG) MONITOR TOLERANCE, RESIDUALS AND LYTES
[2023-02-10] MEDS: fentaNYL citrate/NS 1,000 MCG/100 ML PLAST..BAG 7.5 MCG IVCONT (13:45)
[2023-02-10] MEDS: Furosemide 200 MG in 0.9 % Sodium Chloride 80 ML IVCONT (14:56)
[2023-02-10 19:02] LABS: Anion Gap 18 (12-20); Blood Urea Nitrogen 29 mg/dL (9-16); Calcium 8.5 mg/dL (8.4-10.2); Carbon Dioxide 17 mmol/L (22-29); Chloride 122 mmol/L (96-108); Creatinine Clr Calc Pharmacy 103.9; Estimated Glomerular Filt Rate 59; Glucose Random 102 mg/dL (60-115); Sodium 153 mmol/L (135-145)
[2023-02-10 19:32] LABS: Phosphorus 2.9 mg/dL (2.7-4.5)
[2023-02-10] MEDS: dexmedeTOMIDidine HCL/NS 400 MCG/100 ML INFUS..BTL 39.24 MCG IVCONT ×2 (19:59→22:22)
[2023-02-10] MEDS: fentaNYL citrate/NS 1,000 MCG/100 ML PLAST..BAG 12.5 MCG IVCONT (21:40)
[2023-02-11] VITALS (34 sets, daily range): BP systolic 134–163; BP diastolic 79–100; PULSE 77–118; RESP 22–44; TEMP 34.9–39.6; O2SAT 88–96; BMI 43.8
[2023-02-11] MEDS: Ampicillin Sodium/Sulbactam Na 3 GM in 0.9 % Sodium Chloride 100 ML IV ×4 (00:34→18:10)
[2023-02-11] MEDS: dexmedeTOMIDidine HCL/NS 400 MCG/100 ML INFUS..BTL 39.24 MCG IVCONT ×4 (00:40→08:14)
[2023-02-11] MEDS: propofoL 1,000 MG/100 ML VIAL 40.35 MG IVCONT ×10 (02:11→22:46)
[2023-02-11] MEDS: Albumin Human 25 % 100 ML IV (02:16)
[2023-02-11] MEDS: Heparin Sodium,Porcine 5,000 UNIT/ML VIAL 5000 UNIT SUBCUT ×3 (03:55→20:11)
[2023-02-11] MEDS: levETIRAcetam in NaCl (iso-os) 1,000 MG/100 ML PIGGYBACK 400 MG IV ×2 (03:56→15:22)
[2023-02-11] MEDS: fentaNYL citrate/NS 1,000 MCG/100 ML PLAST..BAG 15 MCG IVCONT (04:13)
[2023-02-11 05:14] LABS: VBG Base Excess -0.1 mmol/L; VBG HCO3 22 mmol/L (22-26); VBG pCO2 28 mmHg; VBG pO2 78 mmHg
[2023-02-11 05:15] LABS: Venous Blood Gas Refer to POC result
[2023-02-11 05:39] LABS: Basophils Absolute Auto 0.1 X10*3/uL (0.0-0.2); Basophils Percent Auto 0.4 % (0-2); Eosinophils Absolute Auto 0.4 X10*3/uL (0.0-0.4); Eosinophils Percent Auto 2.4 % (0-4); Hematocrit 25.1 % (42.0-52.0); Hemoglobin 8.4 g/dl (14.0-18.0); Imm Gran Abs Auto 0.52 X10*3/uL (0.00-0.03); Imm Gran Pct Auto 2.9 % (0.0-0.4); Lymphocytes Absolute Auto 1.7 X10*3/uL (1.2-4.9); Lymphocytes Percent Auto 9.5 % (20-40); MANUAL DIFF FLAG NO; Mean Corpuscular HGB Conc 33.5 g/dl (31.0-36.0); Mean Corpuscular Hemoglobin 28.5 pg (27.0-33.0); Mean Corpuscular Volume 85.1 fL (80.0-98.0); Mean Platelet Volume 11.2 fL (9.4-12.4); Monocytes Absolute Auto 0.4 X10*3/uL (0.1-1.2); Monocytes Percent Auto 2.1 % (2-11); Neutrophils Absolute Auto 14.8 x10*3/uL (2.0-8.3); Neutrophils Percent Auto 82.7 % (45-73); Platelet Count 186 X10*3/uL (160-400); Red Blood Count 2.95 X10*6/uL (4.60-5.80); Red Cell Distribution Width 15.4 % (11.0-16.0); White Blood Count 17.9 X10*3/uL (4.8-10.8)
[2023-02-11 06:09] LABS: Alanine Aminotransferase 115 U/L (0-40); Albumin Level 3.6 g/dL (3.5-5.0); Alkaline Phosphatase 96 U/L (39-117); Anion Gap 14 (12-20); Aspartate Amino Transferase 61 U/L (5-37); Bilirubin Total 0.6 mg/dL (0.0-1.0); Blood Urea Nitrogen 30 mg/dL (9-16); Calcium 8.5 mg/dL (8.4-10.2); Carbon Dioxide 22 mmol/L (22-29); Chloride 122 mmol/L (96-108); Estimated Glomerular Filt Rate > 60; Glucose Random 141 mg/dL (60-115); Magnesium 2.3 mg/dL (1.6-2.6); Phosphorus 3.2 mg/dL (2.7-4.5); Potassium 3.5 mmol/L (3.3-5.1); Sodium 154 mmol/L (135-145); Total Protein 6.5 g/dL (6.5-8.0)
[2023-02-11] MEDS: Potassium Chloride/H20 10 MEQ/100 ML PIGGYBACK 100 MEQ IV ×4 (06:21→09:35)
[2023-02-11] MEDS: Chlorhexidine Gluc Oral Rinse 15 ML MOUTHWASH BUCCAL ×3 (08:00→20:23)
[2023-02-11] MEDS: Famotidine/PF 20 MG/2 ML VIAL IVPUSH (08:00)
--- NOTE | 2023-02-11 09:43 | P.PNCC_ITS ---
Subjective Subjective Date of Service: 02/11/23 Interval History: 32-year-old gentleman with underlying history seizures, encephalocele repair, polysubstance abuse admitted on 02/04/2023 after being unresponsive by his family. On ER evaluation patient With polysubstance abuse, acute renal failure, rhabdomyolysis and agitation requiring multiple sedatives and with escalating FiO2 requirements, eventually requiring intubation for airway protection. Admitted to the intensive care unit. Started on empiric antibiotics and IV fluid support. Rhabdomyolysis essentially resolved. Extubated on 02/08/2023, however still with significant hypoxia and pulmonary edema, now requiring CPAP support. On 02/09/2023 with progressive hypoxia refractory to high-flow and CPAP support requiring re-intubation. No events overnight. By to requirements improvement. Still with significant positive fluid balance. Critical Care Time (minutes): 60 Physical Exam 2 Vital Signs: Vital Signs: Last Vital Signs Temp 100.1 F 02/11/23 08:58 Pulse 85 02/11/23 08:58 Resp 27 H 02/11/23 08:58 BP 148/92 H 02/11/23 08:58 Pulse Ox 94 02/11/23 08:58 O2 Del Method Mechanical Ventil ation 02/11/23 08:58 O2 Flow Rate 60 02/09/23 00:00 FiO2 80 02/11/23 08:58 BMI result Body Mass Index 43.8 Const: General: no acute distress and other (Sedated on the vent) N utritional Appearance: obese Eyes: Sclerae: sclerae normal EOM: EOMs intact bilaterally Neck: Neck: Yes no lymphadenopathy, Yes trachea midline and Yes supple Resp: Auscultation: crackles bilateral Cardio: Rate: regular rate Rhythm: regular rhythm Heart sounds: no gallops, no murmurs and no rubs GI: Palpation (GI): Soft to palpation and Other GI palpation findings present ( Nontender) Auscultation: normal bowel sounds Extrem: General: No clubbing, No cyanosis and Yes edema (1+ bilateral) Objective Data Labs 02/11/23 05:09 02/11/23 05:09 Labs: Laboratory Results - last 24 hr 02/10/23 02/11/23 02/11/23 18:16 05:08 05:09 WBC 17.9 H RBC 2.95 L Hgb 8.4 L Hct 25.1 L MCV 85.1 MCH 28.5 MCHC 33.5 RDW 15.4 Plt Count 186 MPV 11.2 Immature Gran % (Auto) 2.9 H Neut % (Auto) 82.7 H Lymph % (Auto) 9.5 L [place] % (Auto) 2.1 Eos % (Auto) 2.4 Baso % (Auto) 0.4 Lymph # (Auto) 1.7 [place] # (Auto) 0.4 Eos # (Auto) 0.4 Baso # (Auto) 0.1 Abs Immat Gran (auto) 0.52 H Absolute Neuts (auto) 14.8 H Absolute Nucleated RBC 0.000 Nucleated RBC % (auto) 0.0 VBG pH 7.50 H VBG pCO2 28 VBG pO2 78 VBG HCO3 22 VBG O2 Saturation 96.0 VBG Base Excess -0.1 Sodium 153 H 154 H Potassium 4.0 D 3.5 Chloride 122 H 122 H Carbon Dioxide 17 L 22 Anion Gap 18 14 BUN 29 H 30 H Creatinine 1.39 1.27 Estim Creat Clear Calc 103.9 116.0 Estimated GFR 59 > 60 Random Glucose 102 141 H Calcium 8.5 8.5 Phosphorus 2.9 3.2 Magnesium 2.3 Total Bilirubin 0.6 AST 61 H ALT 115 H Alkaline Phosphatase 96 Total Protein 6.5 Albumin 3.6 Microbiology Microbiology Results: Microbiology 02/04/23 16:33 Blood - Venous Blood Culture - Final No growth after 5 days. 02/04/23 15:32 Blood - Venous Blood Culture - Final No growth after 5 days. 02/05/23 07:25 Sputum - Suctioned Gram Stain - Final 02/05/23 07:25 Sputum - Suctioned Sputum Culture - Final Progress Note: A&P Assessment and plan (1) Toxic encephalopathy: Status: Acute (2) Acute respiratory failure with hypoxia: Status: Acute (3) Polysubstance abuse: Status: Acute (4) Aspiration pneumonia: Status: Acute (5) Acute renal failure due to rhabdomyolysis: Status: Acute (6) Pulmonary edema: Status: Acute (7) Seizure: Status: Acute Plan Assessment: 32-year-old gentleman admitted with polysubstance abuse, agitation, aspiration pneumonitis versus pneumonia, rhabdomyolysis, and acute kidney injury, now requiring ventilatory support. Plan: Neuro: Acute toxic encephalopathy secondary to polysubstance abuse. Underlying seizure disorder. Continue on Keppra. Cardiac: No acute issues. Pulmonary: acute respiratory failure with hypoxia secondary to pulmonary aspiration, initially requiring ventilatory support. Also with significant component of pulmonary edema secondary to IV fluid requirements significant rhabdomyolysis. Extubated 02/08/2023. Reintubated on 02/09/2023 secondary to hypoxia refractory to high-flow /CPAP support. Still with significant pulmonary edema. Continue to titrate off ventilatory support as tolerated. Renal: Acute renal failure and rhabdomyolysis, improving. Continue to monitor renal indices and urine output. Continue diuresis. Endo: No acute issues. GI: No acute issues ID: Empirically covered for aspiration pneumonia. Heme/Onc: No acute issues. Psych: No acute issues. Miscellaneous: No acute issues. Prophylaxis: heparin, famotidine Diet: tube feeds Critical care time spent: 60 minutes Quality Stroke Does the patient have a stroke diagnosis?: No VTE Prior VTE?: No VTE Risk Level:: Medical - moderate - high VTE Device Contraindication: N/A - Device Ordered VTE Drug Contraindication: N/A - Med Ordered
[2023-02-11] MEDS: dexmedeTOMIDidine HCL/NS 400 MCG/100 ML INFUS..BTL 45.78 MCG IVCONT (10:40)
[2023-02-11] MEDS: fentaNYL citrate/NS 1,000 MCG/100 ML PLAST..BAG 17.5 MCG IVCONT (10:54)
[2023-02-11] MEDS: Cisatracurium Besylate 20 MG/10 ML VIAL IVPUSH (12:26)
[2023-02-11] MEDS: dexmedeTOMIDidine HCL/NS 400 MCG/100 ML INFUS..BTL 49.05 MCG IVCONT ×6 (12:41→22:27)
[2023-02-11] MEDS: Metoprolol Tartrate 5 MG/5 ML VIAL IVPUSH (13:01)
[2023-02-11] MEDS: Acetaminophen Oral Liquid 650 MG/20.3 ML SOLUTION PO (13:12)
--- NOTE | 2023-02-11 13:44 | PC.NURSE ---
Patient dysynchronous w/ vent on PC settings - RR maintaining high 30's to low 40's, accessory muscle use, head bobbing, MV mid 20's, TV 600's, sat low 90's on 70% Fio2. Fentanyl & Precedex gtts maxed per EMAR w/ no effect - RT @ bedside. Peak pressure nud 40's - unable to advance inline suction - RT lavaged with production of moderate amount of dark thakkar secretions. Patient continued to be dysynchronous w/ vent - MD at bedside. Nimbex 20 mg IVP ordered and administered @ 1226 - approx 2-3mins after administration, O2 sat down to high 60's with good pleth on 100% Fio2 - RT at bedside bagging - MD called back to bedside - patient switched to PSV 15/15 with slow improvement in O2 sats to 92%. Temp up to 103.3 on cooling blanket - MD notified & medicated per EMAR w/ Tylenol - effectiveness pending. SBP 190's, HR 120's sinus - MD notified - medicated with Lopressor 5mg IVP w/ good effect - HR 102, BP 127/77. Patient unstable for repositioning at this time due to frequent hypoxia w/ activity.
--- NOTE | 2023-02-11 13:47 | MHC.CM.PN ---
Pt required re-intubation as he could not maintain respiratory functioning. Goals of care today are to diurese and prepare for another wean attempt. CM to follow for better understanding of d/c needs.
[2023-02-11] MEDS: Furosemide 200 MG in 0.9 % Sodium Chloride 80 ML IVCONT (14:11)
[2023-02-11] MEDS: fentaNYL citrate/NS 1,000 MCG/100 ML PLAST..BAG 20 MCG IVCONT ×2 (15:29→20:25)
[2023-02-11 19:22] LABS: Anion Gap 17 (12-20); Blood Urea Nitrogen 28 mg/dL (9-16); Calcium 8.2 mg/dL (8.4-10.2); Carbon Dioxide 19 mmol/L (22-29); Chloride 120 mmol/L (96-108); Creatinine Clr Calc Pharmacy 121.7; Estimated Glomerular Filt Rate > 60; Glucose Random 111 mg/dL (60-115); Potassium 4.1 mmol/L (3.3-5.1); Sodium 152 mmol/L (135-145)
[2023-02-12] VITALS (40 sets, daily range): BP systolic 97–191; BP diastolic 31–109; PULSE 78–157; RESP 21–35; TEMP 35–39.7; O2SAT 81–96; BMI 42.7
[2023-02-12] MEDS: dexmedeTOMIDidine HCL/NS 400 MCG/100 ML INFUS..BTL 49.05 MCG IVCONT ×6 (00:19→10:08)
[2023-02-12] MEDS: propofoL 1,000 MG/100 ML VIAL 40.35 MG IVCONT ×11 (01:13→23:37)
[2023-02-12] MEDS: fentaNYL citrate/NS 1,000 MCG/100 ML PLAST..BAG 20 MCG IVCONT ×6 (01:13→23:50)
[2023-02-12] MEDS: Ampicillin Sodium/Sulbactam Na 3 GM in 0.9 % Sodium Chloride 100 ML IV ×3 (01:24→13:24)
[2023-02-12] MEDS: levETIRAcetam in NaCl (iso-os) 1,000 MG/100 ML PIGGYBACK 400 MG IV ×2 (03:02→15:43)
[2023-02-12] MEDS: Heparin Sodium,Porcine 5,000 UNIT/ML VIAL 5000 UNIT SUBCUT ×3 (03:04→19:53)
[2023-02-12] MEDS: Midazolam HCl/PF 2 MG/2 ML VIAL 4 MG IVPUSH ×2 (04:45→21:04)
[2023-02-12 05:16] LABS: VBG Base Excess -1.4 mmol/L; VBG HCO3 22 mmol/L (22-26); VBG pCO2 33 mmHg; VBG pH 7.43 (7.32-7.43); VBG pO2 43 mmHg
[2023-02-12 05:19] LABS: Venous Blood Gas Refer to POC result
[2023-02-12 05:47] LABS: Basophils Absolute Auto 0.1 X10*3/uL (0.0-0.2); Basophils Percent Auto 0.3 % (0-2); Mean Corpuscular Hemoglobin 28.2 pg (27.0-33.0); NRBC Pct Auto 0.2 /100WBC (0.0-0.2); PLT CLUMP 1; SCAN SMEAR FLAG 1
[2023-02-12 05:49] LABS: Eosinophils Absolute Auto 0.5 X10*3/uL (0.0-0.4); Eosinophils Percent Auto 2.1 % (0-4); Hematocrit 26.9 % (42.0-52.0); Hemoglobin 8.6 g/dl (14.0-18.0); Imm Gran Abs Auto 0.45 X10*3/uL (0.00-0.03); Imm Gran Pct Auto 1.9 % (0.0-0.4); Lymphocytes Absolute Auto 1.4 X10*3/uL (1.2-4.9); Lymphocytes Percent Auto 5.8 % (20-40); MANUAL DIFF FLAG SCAN; Mean Corpuscular Volume 88.2 fL (80.0-98.0); Mean Platelet Volume 11.1 fL (9.4-12.4); Monocytes Absolute Auto 0.5 X10*3/uL (0.1-1.2); Monocytes Percent Auto 1.9 % (2-11); Neutrophils Absolute Auto 21.3 x10*3/uL (2.0-8.3); Red Blood Count 3.05 X10*6/uL (4.60-5.80); Red Cell Distribution Width 16.1 % (11.0-16.0)
[2023-02-12 05:50] LABS: White Blood Count 24.2 X10*3/uL (4.8-10.8)
[2023-02-12 05:52] LABS: Albumin Level 3.2 g/dL (3.5-5.0); Anion Gap 17 (12-20); Blood Urea Nitrogen 27 mg/dL (9-16); Calcium 8.3 mg/dL (8.4-10.2); Carbon Dioxide 19 mmol/L (22-29); Chloride 121 mmol/L (96-108); Creatinine Clr Calc Pharmacy 137.1; Estimated Glomerular Filt Rate > 60; Glucose Random 120 mg/dL (60-115); Magnesium 2.1 mg/dL (1.6-2.6); Phosphorus 4.1 mg/dL (2.7-4.5); Potassium 4.5 mmol/L (3.3-5.1); Sodium 152 mmol/L (135-145)
[2023-02-12 05:56] LABS: Platelet Count 171 X10*3/uL (160-400); SLIDE REVIEW VERIFIED
[2023-02-12] MEDS: Lactulose 20 GM/30 ML SOLUTION 30 GM OG-TUBE (06:21)
[2023-02-12] MEDS: Albumin Human 25 % 100 ML IV ×4 (06:22→23:40)
[2023-02-12] MEDS: Chlorhexidine Gluc Oral Rinse 15 ML MOUTHWASH BUCCAL ×3 (08:08→19:53)
[2023-02-12] MEDS: Famotidine/PF 20 MG/2 ML VIAL IVPUSH (08:08)
--- NOTE | 2023-02-12 10:47 | MHC.CLN ---
F/U DISCUSSED AT ROUNDS WITH PT RECEIVING PROMOTE AT 30ML/HR WITH 300ML FWF Q 6 HRS PROVIDES 720KCALS (1785KCALS WITH SEDATION; 24KCALS/KG BASED ON IBW), 45G PROTEIN, 1804ML TOTAL WATER FROM FORMULA AND FLUSHES (24ML/KG BASED ON IBW) MONITOR TOLERANCE, RESIDUALS AND LYTES
--- NOTE | 2023-02-12 13:08 | PM.CCPN ---
Subjective Subjective Date of Service: 02/12/23 Interval History: 32-year-old gentleman with underlying history seizures, encephalocele repair, polysubstance abuse admitted on 02/04/2023 after being unresponsive by his family. On ER evaluation patient With polysubstance abuse, acute renal failure, rhabdomyolysis and agitation requiring multiple sedatives and with escalating FiO2 requirements, eventually requiring intubation for airway protection. Admitted to the intensive care unit. Started on empiric antibiotics and IV fluid support. Rhabdomyolysis essentially resolved. Extubated on 02/08/2023, however still with significant hypoxia and pulmonary edema, now requiring CPAP support. On 02/09/2023 with progressive hypoxia refractory to high-flow and CPAP support requiring re-intubation. No events overnight. Critical Care Time (minutes): 60 Physical Exam Vital Signs: Vital Signs: Last Vital Signs Temp 101.0 F H 02/12/23 12:00 Pulse 108 H 02/12/23 12:00 Resp 34 H 02/12/23 12:00 BP 158/96 H 02/12/23 12:00 Pulse Ox 94 02/12/23 12:00 O2 Del Method Mechanical Ventil ation 02/12/23 12:00 O2 Flow Rate 60 02/09/23 00:00 FiO2 100 02/12/23 12:00 BMI result Body Mass Index 42.7 Const: General: no acute distress and other ( Sedated on the vent) Eyes: Sclerae: sclerae normal EOM: EOMs intact bilaterally Neck: Neck: Yes no lymphadenopathy, Yes trachea midline and Yes supple Resp: Auscultation: crackles ( diffuse bilateral) Cardio: Rate: tachycardic Rhythm: regular rhythm Heart sounds: no gallops, no murmurs and no rubs GI: Palpation (GI): Soft to palpation and Other GI palpation findings present ( Nontender) Auscultation: normal bowel sounds Extrem: General: No clubbing, No cyanosis and Yes edema ( 1+ bilateral) Objective Data Labs 02/13/23 05:28 02/13/23 05:28 Labs: Laboratory Results - last 24 hr 02/11/23 02/12/23 02/12/23 18:25 05:10 05:11 WBC 24.2 H RBC 3.05 L Hgb 8.6 L Hct 26.9 L MCV 88.2 MCH 28.2 MCHC 32.0 RDW 16.1 H Plt Count 171 MPV 11.1 Immature Gran % (Auto) 1.9 H Neut % (Auto) 88.0 H Lymph % (Auto) 5.8 L [place] % (Auto) 1.9 L Eos % (Auto) 2.1 Baso % (Auto) 0.3 Lymph # (Auto) 1.4 [place] # (Auto) 0.5 Eos # (Auto) 0.5 H Baso # (Auto) 0.1 Abs Immat Gran (auto) 0.45 H Absolute Neuts (auto) 21.3 H Absolute Nucleated RBC 0.060 H Nucleated RBC % (auto) 0.2 Smear Tech's Comments VERIFIED VBG pH 7.43 VBG pCO2 33 VBG pO2 43 VBG HCO3 22 VBG O2 Saturation 74.0 VBG Base Excess -1.4 Sodium 152 H 152 H Potassium 4.1 4.5 Chloride 120 H 121 H Carbon Dioxide 19 L 19 L Anion Gap 17 17 BUN 28 H 27 H Creatinine 1.21 1.06 Estim Creat Clear Calc 121.7 137.1 Estimated GFR > 60 > 60 Random Glucose 111 120 H Calcium 8.2 L 8.3 L Phosphorus 4.1 Magnesium 2.1 Albumin 3.2 L Microbiology Microbiology Results: Microbiology 02/04/23 16:33 Blood - Venous Blood Culture - Final No growth after 5 days. 02/04/23 15:32 Blood - Venous Blood Culture - Final No growth after 5 days. 02/05/23 07:25 Sputum - Suctioned Gram Stain - Final 02/05/23 07:25 Sputum - Suctioned Sputum Culture - Final Progress Note: A&P Assessment and plan (1) Pulmonary edema: Status: Acute (2) Toxic encephalopathy: Status: Acute (3) Acute respiratory failure with hypoxia: Status: Acute (4) Aspiration pneumonia: Status: Acute (5) Polysubstance abuse: Status: Acute (6) Seizure: Status: Acute Plan Assessment: 32-year-old gentleman admitted with polysubstance abuse, agitation, aspiration pneumonitis versus pneumonia, rhabdomyolysis, and acute kidney injury, now requiring ventilatory support. Plan: Neuro: Acute toxic encephalopathy secondary to polysubstance abuse. Underlying seizure disorder. Continue on Keppra. Cardiac: No acute issues. Pulmonary: acute respiratory failure with hypoxia secondary to pulmonary aspiration, initially requiring ventilatory support. Also with significant component of pulmonary edema secondary to IV fluid requirements significant rhabdomyolysis. Extubated 02/08/2023. Reintubated on 02/09/2023 secondary to hypoxia refractory to high-flow /CPAP support. Still with significant pulmonary edema. Continue to titrate off ventilatory support as tolerated. Renal: Acute renal failure and rhabdomyolysis, improving. Continue to monitor renal indices and urine output. Continue diuresis. Endo: No acute issues. GI: No acute issues ID: Empirically covered for aspiration pneumonia. Heme/Onc: No acute issues. Psych: No acute issues. Miscellaneous: No acute issues. Prophylaxis: heparin, famotidine Diet: tube feeds Critical care time spent: 60 minutes Quality Stroke Does the patient have a stroke diagnosis?: No VTE Prior VTE?: No VTE Risk Level:: Medical - moderate - high VTE Device Contraindication: N/A - Device Ordered VTE Drug Contraindication: N/A - Med Ordered
[2023-02-12] MEDS: Chlorothiazide Sodium 500 MG VIAL IVPUSH (13:42)
[2023-02-12] MEDS: Furosemide 200 MG in 0.9 % Sodium Chloride 80 ML IVCONT (14:22)
[2023-02-12] MEDS: levoFLOXacin/D5W 750 MG/150 ML PIGGYBACK 100 MG IV (14:24)
[2023-02-12] MEDS: Metoprolol Tartrate 5 MG/5 ML VIAL IVPUSH (16:12)
[2023-02-12] MEDS: Esmolol HCl/NaCl Iso 2,500 MG/250 ML IV.SOLN 40.53 MG IVCONT (18:04)
[2023-02-12 19:47] LABS: Anion Gap 20 (12-20); Blood Urea Nitrogen 28 mg/dL (9-16); Calcium 8.6 mg/dL (8.4-10.2); Carbon Dioxide 20 mmol/L (22-29); Chloride 116 mmol/L (96-108); Creatinine Clr Calc Pharmacy 105.3; Estimated Glomerular Filt Rate 59; Glucose Random 105 mg/dL (60-115); Magnesium 1.9 mg/dL (1.6-2.6); Phosphorus 4.1 mg/dL (2.7-4.5); Sodium 152 mmol/L (135-145)
[2023-02-12] MEDS: Cisatracurium Besylate 20 MG/10 ML VIAL IVPUSH (21:05)
[2023-02-12] MEDS: Acetaminophen Oral Liquid 650 MG/20.3 ML SOLUTION PO (21:57)
[2023-02-12 22:00] LABS: VBG Base Excess -6.1 mmol/L; VBG HCO3 19 mmol/L (22-26); VBG pCO2 39 mmHg; VBG pO2 52 mmHg
[2023-02-12] MEDS: Norepinephrine Bitartrate/D5W 8 MG/250 ML PLAST..BAG 12.61 MG IV (22:02)
[2023-02-12 22:20] LABS: Anion Gap 24 (12-20); Blood Urea Nitrogen 31 mg/dL (9-16); Calcium 8.6 mg/dL (8.4-10.2); Carbon Dioxide 16 mmol/L (22-29); Chloride 116 mmol/L (96-108); Creatinine Clr Calc Pharmacy 88.6; Estimated Glomerular Filt Rate 49; Glucose Random 113 mg/dL (60-115); Magnesium 2.1 mg/dL (1.6-2.6); Phosphorus 5.5 mg/dL (2.7-4.5); Potassium 4.8 mmol/L (3.3-5.1); Sodium 151 mmol/L (135-145)
[2023-02-12 22:27] LABS: B Type Natriuretic Peptide 872 pg/mL (<100)
[2023-02-13] VITALS (38 sets, daily range): BP systolic 65–203; BP diastolic 27–100; PULSE 95–147; RESP 26–36; TEMP 34.6–39.6; O2SAT 88–98; BMI 42.9
--- NOTE | 2023-02-13 | ECG_ITS ---
Test Reason : T waves inversion Blood Pressure : / mmHG Vent. Rate : 131 BPM Atrial Rate : 131 BPM P-R Int : 118 ms QRS Dur : 074 ms QT Int : 402 ms P-R-T Axes : 075 060 -01 degrees QTc Int : 593 ms Sinus tachycardia Cannot rule out Inferior infarct , age undetermined T wave abnormality, consider anterolateral ischemia Abnormal ECG When compared with ECG of 13-FEB-2023 05:35, T wave inversion more evident in Anterolateral leads Referred By: Silvestre Quigley Electronically Signed By:Ephraim Leal
--- NOTE | 2023-02-13 | ECG_ITS ---
Test Reason : tachycardia Blood Pressure : / mmHG Vent. Rate : 137 BPM Atrial Rate : 137 BPM P-R Int : 124 ms QRS Dur : 076 ms QT Int : 272 ms P-R-T Axes : 066 078 008 degrees QTc Int : 410 ms Sinus tachycardia Nonspecific ST abnormality [id number] with precordial T wave inverions- consider PE if clinical suspicion. Abnormal ECG When compared to the previous EKG of changes noted as above Referred By: Heraclio Marie Electronically Signed By:Ephraim Leal
[2023-02-13] MEDS: Esmolol HCl/NaCl Iso 2,500 MG/250 ML IV.SOLN 40.53 MG IVCONT (00:03)
[2023-02-13] MEDS: Bumetanide 1 MG/4 ML VIAL IVPUSH (00:12)
[2023-02-13 00:27] LABS: Venous Blood Gas Refer to POC result
[2023-02-13] MEDS: propofoL 1,000 MG/100 ML VIAL 40.35 MG IVCONT ×10 (01:50→21:52)
[2023-02-13] MEDS: levETIRAcetam in NaCl (iso-os) 1,000 MG/100 ML PIGGYBACK 400 MG IV ×2 (04:05→16:17)
[2023-02-13] MEDS: Heparin Sodium,Porcine 5,000 UNIT/ML VIAL 5000 UNIT SUBCUT ×3 (04:08→19:54)
[2023-02-13] MEDS: fentaNYL citrate/NS 1,000 MCG/100 ML PLAST..BAG 20 MCG IVCONT ×5 (04:09→23:17)
[2023-02-13 05:33] LABS: VBG Base Excess -6.5 mmol/L; VBG HCO3 21 mmol/L (22-26); VBG pCO2 55 mmHg; VBG pH 7.19 (7.32-7.43); VBG pO2 41 mmHg
[2023-02-13 05:41] LABS: Basophils Absolute Auto 0.1 X10*3/uL (0.0-0.2); Basophils Percent Auto 0.3 % (0-2); Hematocrit 24.3 % (42.0-52.0); Hemoglobin 7.6 g/dl (14.0-18.0); Imm Gran Abs Auto 0.84 X10*3/uL (0.00-0.03); Imm Gran Pct Auto 2.9 % (0.0-0.4); Lymphocytes Absolute Auto 2.3 X10*3/uL (1.2-4.9); Lymphocytes Percent Auto 7.7 % (20-40); MANUAL DIFF FLAG SCAN; Mean Corpuscular HGB Conc 31.3 g/dl (31.0-36.0); Mean Corpuscular Hemoglobin 27.9 pg (27.0-33.0); Mean Corpuscular Volume 89.3 fL (80.0-98.0); Mean Platelet Volume 11.8 fL (9.4-12.4); Monocytes Absolute Auto 0.6 X10*3/uL (0.1-1.2); NRBC Pct Auto 0.3 /100WBC (0.0-0.2); Neutrophils Absolute Auto 25.4 x10*3/uL (2.0-8.3); Neutrophils Percent Auto 87.1 % (45-73); Platelet Count 150 X10*3/uL (160-400); Red Blood Count 2.72 X10*6/uL (4.60-5.80); Red Cell Distribution Width 16.9 % (11.0-16.0); SCAN SMEAR FLAG 1; White Blood Count 29.2 X10*3/uL (4.8-10.8)
[2023-02-13] MEDS: Chlorothiazide Sodium 500 MG VIAL IVPUSH (05:50)
[2023-02-13 06:02] LABS: Alanine Aminotransferase 89 U/L (0-40); Albumin Level 3.7 g/dL (3.5-5.0); Alkaline Phosphatase 128 U/L (39-117); Anion Gap 20 (12-20); Aspartate Amino Transferase 102 U/L (5-37); Bilirubin Total 0.7 mg/dL (0.0-1.0); Blood Urea Nitrogen 44 mg/dL (9-16); Calcium 8.2 mg/dL (8.4-10.2); Carbon Dioxide 20 mmol/L (22-29); Chloride 115 mmol/L (96-108); Estimated Glomerular Filt Rate 26; Glucose Random 112 mg/dL (60-115); Magnesium 2.4 mg/dL (1.6-2.6); Phosphorus 6.5 mg/dL (2.7-4.5); Potassium 5.3 mmol/L (3.3-5.1); Sodium 150 mmol/L (135-145); Total Protein 6.8 g/dL (6.5-8.0)
--- NOTE | 2023-02-13 06:11 | PM.CCN ---
Critical Care Event Note Summary Date of Service: 02/13/23 <Silvestre Quigley NP - Last Filed: 02/13/23 06:30> Code activated: Yes <Silvestre Quigley NP - Last Filed: 02/13/23 06:30> Narrative: This case had a high probability of a clinically significant, sudden, or life threatening deterioration of this patient's condition which required my full and direct attention, intervention and personal management. <Silvestre Quigley NP - Last Filed: 02/13/23 06:30> Critical Care Time (minutes): 30 <Silvestre Quigley NP - Last Filed: 02/13/23 06:30> Comment: ?Patient had a hypoxic episode and was attempted to reposition earlier during the shift, ? chest x-ray showed worsening pulmonary edema / questionable ARDS.? he recover and was satting > 88% all night.? At 0505? patient to do was exchanged,? shortly after he became hypoxic,? dropping to high 70s. At 0535 patient became? hypotensive following by bradycardic? and ultimately asystole.? ACLS protocol was followed.? ROSC was achieved after 4 minutes/ 2 rounds of epinephrine.? ?Cardiopulmonary arrest likely from aspiration.? ?Laboratory data did show patient? with worsening renal status.? Nephrology consulted, Dr Garcia agree with emergent? dialysis.? ?I personally spoke to family members, Jennifer and Zuleyma, and informed? of change in medical condition.? <Silvestre Quigley NP - Last Filed: 02/13/23 06:30> ?Patient had a hypoxic episode and was attempted to reposition earlier during the shift (around 9p.m.), ? chest x-ray showed worsening pulmonary edema / questionable ARDS.? He recover and was satting > 88% all night.? At 0505? patient tube do was exchanged,? shortly after he became hypoxic,? dropping to high 70s. At 0535 patient became? hypotensive followed by bradycardia? and ultimately asystole.? ACLS protocol was followed.? ROSC was achieved after 4 minutes/ 2 rounds of epinephrine.? ?Cardiopulmonary arrest likely from aspiration.? ?Laboratory data did show patient? with worsening renal status.? Nephrology consulted, Dr Garcia agree with emergent? dialysis.? ?I personally spoke to family members, Jennifer and Zuleyma, and informed? of change in medical condition.? <Heraclio Marie MD - Last Filed: 02/13/23 10:25>
[2023-02-13 06:16] LABS: SLIDE REVIEW VERIFIED
[2023-02-13 06:17] LABS: Troponin-I High Sensitivity 265.6 ng/L (<3.5-35.0)
[2023-02-13 06:30] LABS: VBG Base Excess -6.7 mmol/L; VBG HCO3 21 mmol/L (22-26); VBG pCO2 54 mmHg; VBG pH 7.19 (7.32-7.43); VBG pO2 46 mmHg
[2023-02-13 06:41] LABS: Venous Blood Gas Refer to POC result
[2023-02-13 06:41] LABS: Venous Blood Gas Refer to POC result
--- NOTE | 2023-02-13 07:11 | PC.NURSE ---
At approx 2000 core temp >103, packed with ice, cooling blanket applied anteriorly, PRN APAP per APR. Pt found to be incont of stool. Given one time dose of IVP 4 Versed and IVP 20mg Nimbex at 2105 prior to repositioning per BLACK POWDER GLAZING OPERATOR. When laid supine pt progressively desatted to 70s despite PEEP 15 and FiO2 100%. BLACK POWDER GLAZING OPERATOR and RT at bedside. Manual bagging required to maintain sat >80%. Able to place back on vent after 30minutes. Chest XR and labs ordered and completed. Lasix gtt increased to 10mg/hr per BLACK POWDER GLAZING OPERATOR without effect. 1mg IVP Bumex given as ordered at 0012, without effect. Levo titrated per APR to maintain MAP >65. At approx 0500 pt desatting down to 70-80s, lavaged by RT with minimal effect. At 0530, HR down to 70s, dropped from 110-130s, SBP 60s. 0535 pt asystole on tele, code blue initiated- see paper documentation. ROSC achieved at 0539. Chest XR and labs repeated. 500mg Diuril IVP given as ordered. Family notified and updated by BLACK POWDER GLAZING OPERATOR. Nephrology consulted for dialysis, Lewis placed by BLACK POWDER GLAZING OPERATOR to [facility]. Report given to oncoming RN.
--- NOTE | 2023-02-13 07:19 | W.PM.CCHP ---
Procedures Date of Service Date of Service: 02/13/23 <Silvestre Quigley NP - Last Filed: 02/13/23 07:33> 02/13/23 <Heraclio Marie MD - Last Filed: 02/13/23 10:24> Central Line Placement Right IJ: Central Line Comments: Patient required emergent dialysis, consent obtained over the phone. Right internal jugular dialysis catheter placed in usual sterile conditions under ultrasound guidance for appropriate vascular access without immediate complications. Position verified with Chest XRAY. <Silvestre Quigley NP - Last Filed: 02/13/23 07:33> Consent for Procedure: Emergent-no informed consent obtained <Silvestre Quigley NP - Last Filed: 02/13/23 07:33> Time out performed: Yes <Silvestre Quigley NP - Last Filed: 02/13/23 07:33> Sterile Technique Used: Yes <Silvestre Quigley NP - Last Filed: 02/13/23 07:33> Patient placed on monitor/pulse ox: Yes <Silvestre Quigley NP - Last Filed: 02/13/23 07:33> prep: mask, gown and gloves <Silvestre Quigley NP - Last Filed: 02/13/23 07:33> Central line prep: Chlorhexidine scrub <Silvestre Quigley NP - Last Filed: 02/13/23 07:33> Post procedure: sutured in place, good blood return, all ports aspirated, flushed, capped and sterile dressing applied <Silvestre Quigley NP - Last Filed: 02/13/23 07:33> Post procedure x-ray: tip of catheter in good position and no pneumothorax seen <Silvestre Quigley NP - Last Filed: 02/13/23 07:33> Patient tolerated procedure: well and no complications <Silvestre Quigley NP - Last Filed: 02/13/23 07:33> Complications: none <Silvestre Quigley NP - Last Filed: 02/13/23 07:33>
--- NOTE | 2023-02-13 07:52 | PM.EVENT ---
Event Note Date of Service: 02/13/23 Event Note: Thank you for the consult. Case discussed with ICU team. Anuric S/P Code. Hypervolemic. K rising. Increased Vent requirements; Needs renal replacement. Ordered HD. HD RN aware.
[2023-02-13] MEDS: Famotidine/PF 20 MG/2 ML VIAL IVPUSH (08:01)
[2023-02-13] MEDS: Chlorhexidine Gluc Oral Rinse 15 ML MOUTHWASH BUCCAL ×3 (08:01→19:53)
--- NOTE | 2023-02-13 08:23 | ECG_ITS ---
Test Reason : tachycardia Blood Pressure : / mmHG Vent. Rate : 139 BPM Atrial Rate : 139 BPM P-R Int : 116 ms QRS Dur : 072 ms QT Int : 278 ms P-R-T Axes : 058 062 -22 degrees QTc Int : 423 ms Sinus tachycardia Possible Inferior infarct , age undetermined T wave abnormality, consider anterior ischemia Abnormal ECG When compared to the previous EKG of No significant changes seen Referred By: Heraclio Marie Electronically Signed By:Ephraim Leal
--- NOTE | 2023-02-13 10:27 | P.PNCC_ITS ---
Subjective Subjective Date of Service: 02/13/23 Interval History: 32-year-old gentleman with underlying history seizures, encephalocele repair, polysubstance abuse admitted on 02/04/2023 after being unresponsive by his family. On ER evaluation patient With polysubstance abuse, acute renal failure, rhabdomyolysis and agitation requiring multiple sedatives and with escalating FiO2 requirements, eventually requiring intubation for airway protection. Admitted to the intensive care unit. Started on empiric antibiotics and IV fluid support. Rhabdomyolysis essentially resolved. Extubated on 02/08/2023, however still with significant hypoxia and pulmonary edema, now requiring CPAP support. On 02/09/2023 with progressive hypoxia refractory to high-flow and CPAP support requiring re-intubation. On 02/13 at approximately 05:00 patient with sudden onset of hypoxia refractory to maximum ventilatory support with development of bradycardia rapidly deteriorating to asystole. CPR started immediately and return of spontaneous circulation achieved after 4 minutes of CPR. artery study showing worsen metabolic acidosis and renal failure. Patient was initiated on emergent dialysis. Now with ARDS physiology. Overnight events as above. Critical Care Time (minutes): 90 Physical Exam 2 Vital Signs: Vital Signs: Last Vital Signs Temp 102.9 F H 02/13/23 09:58 Pulse 135 H 02/13/23 09:58 Resp 34 H 02/13/23 09:58 BP 122/62 02/13/23 09:58 Pulse Ox 94 02/13/23 09:58 O2 Del Method Mechanical Ventil ation 02/13/23 09:58 O2 Flow Rate 100 02/13/23 09:58 FiO2 100 02/13/23 09:00 BMI result Body Mass Index 42.9 Const: General: no acute distress and other ( Sedated on the vent) N utritional Appearance: obese Eyes: Sclerae: sclerae normal Neck: Neck: Yes no lymphadenopathy, Yes trachea midline and Yes supple Resp: Auscultation: crackles ( bilateral) Cardio: Rate: regular rate Rhythm: regular rhythm Heart sounds: no gallops, no murmurs and no rubs GI: Palpation (GI): Soft to palpation and Other GI palpation findings present ( Nontender) Auscultation: normal bowel sounds Extrem: General: No clubbing, No cyanosis and Yes edema ( on +bilateral) Objective Data Labs 02/13/23 05:28 02/13/23 05:28 Labs: Laboratory Results - last 24 hr 02/12/23 02/12/23 02/12/23 19:10 21:54 21:55 WBC RBC Hgb Hct MCV MCH MCHC RDW Plt Count MPV Immature Gran % (Auto) Neut % (Auto) Lymph % (Auto) [place] % (Auto) Eos % (Auto) Baso % (Auto) Lymph # (Auto) [place] # (Auto) Eos # (Auto) Baso # (Auto) Abs Immat Gran (auto) Absolute Neuts (auto) Absolute Nucleated RBC Nucleated RBC % (auto) Smear Tech's Comments Hold Purple Top SEE NOTE VBG pH 7.30 L VBG pCO2 39 VBG pO2 52 VBG HCO3 19 L VBG O2 Saturation 78.0 VBG Base Excess -6.1 Sodium 152 H 151 H Potassium 4.0 4.8 Chloride 116 H 116 H Carbon Dioxide 20 L 16 L Anion Gap 20 24 H BUN 28 H 31 H Creatinine 1.38 1.64 H Estim Creat Clear Calc 105.3 88.6 Estimated GFR 59 49 Random Glucose 105 113 Calcium 8.6 8.6 Phosphorus 4.1 5.5 H Magnesium 1.9 2.1 Total Bilirubin AST ALT Alkaline Phosphatase Troponin I High Sens B-Natriuretic Peptide 872 H Total Protein Albumin Hold Yellow Top See Note 02/13/23 02/13/23 02/13/23 05:27 05:28 06:22 WBC 29.2 H RBC 2.72 L Hgb 7.6 L Hct 24.3 L MCV 89.3 MCH 27.9 MCHC 31.3 RDW 16.9 H Plt Count 150 L MPV 11.8 Immature Gran % (Auto) 2.9 H Neut % (Auto) 87.1 H Lymph % (Auto) 7.7 L [place] % (Auto) 2.0 Eos % (Auto) 0.0 Baso % (Auto) 0.3 Lymph # (Auto) 2.3 [place] # (Auto) 0.6 Eos # (Auto) 0.0 Baso # (Auto) 0.1 Abs Immat Gran (auto) 0.84 H Absolute Neuts (auto) 25.4 H Absolute Nucleated RBC 0.100 H Nucleated RBC % (auto) 0.3 H Smear Tech's Comments VERIFIED Hold Purple Top VBG pH 7.19 L* 7.19 L* VBG pCO2 55 54 VBG pO2 41 46 VBG HCO3 21 L 21 L VBG O2 Saturation 55.0 64.0 VBG Base Excess -6.5 -6.7 Sodium 150 H Potassium 5.3 H Chloride 115 H Carbon Dioxide 20 L Anion Gap 20 BUN 44 H Creatinine 2.85 H Estim Creat Clear Calc 51.0 Estimated GFR 26 Random Glucose 112 Calcium 8.2 L Phosphorus 6.5 H Magnesium 2.4 Total Bilirubin 0.7 AST 102 H ALT 89 H Alkaline Phosphatase 128 H Troponin I High Sens 265.6 H* B-Natriuretic Peptide Total Protein 6.8 Albumin 3.7 Hold Yellow Top Microbiology Microbiology Results: Microbiology 02/12/23 14:41 Sputum - Suctioned Gram Stain - Final 02/04/23 16:33 Blood - Venous Blood Culture - Final No growth after 5 days. 02/04/23 15:32 Blood - Venous Blood Culture - Final No growth after 5 days. 02/05/23 07:25 Sputum - Suctioned Gram Stain - Final 02/05/23 07:25 Sputum - Suctioned Sputum Culture - Final Progress Note: A&P Assessment and plan (1) ARDS (adult respiratory distress syndrome): Status: Acute (2) Polysubstance abuse: Status: Acute (3) Aspiration pneumonia: Status: Acute (4) Acute renal failure: Status: Acute (5) Cardiac arrest with successful resuscitation: Status: Acute Plan Assessment: 32-year-old gentleman admitted with polysubstance abuse, agitation, aspiration pneumonitis versus pneumonia, rhabdomyolysis, and acute kidney injury, now requiring ventilatory support. Plan: Neuro: Acute toxic encephalopathy secondary to polysubstance abuse. Underlying seizure disorder. Continue on Keppra. Cardiac: respiratory arrest with returned spontaneous circulation after 4 rouds of CPR. 2D echo is ordered. Pulmonary: acute respiratory failure with hypoxia secondary to pulmonary aspiration, initially requiring ventilatory support. Also with significant component of pulmonary edema now with ARDS physiology. Extubated 02/08/2023. Reintubated on 02/09/2023 secondary to hypoxia refractory to high-flow /CPAP support. Continue to titrate off ventilatory support as tolerated. Renal: Acute renal failure and rhabdomyolysis, now worsening metabolic acidosis and hyperkalemia. Nephrology service care appreciated. Started on hemodialysis. Continue to monitor renal indices and urine output. Endo: No acute issues. GI: No acute issues ID: Empirically covered for aspiration pneumonia. Repeat sputum cultures are pending. Heme/Onc: No acute issues. Psych: No acute issues. Miscellaneous: No acute issues. Prophylaxis: heparin, famotidine Diet: tube feeds Critical care time spent: 90 minutes Quality Stroke Does the patient have a stroke diagnosis?: No VTE Prior VTE?: No VTE Risk Level:: Medical - moderate - high VTE Device Contraindication: N/A - Device Ordered VTE Drug Contraindication: N/A - Med Ordered
[2023-02-13] MEDS: levoFLOXacin/D5W 750 MG/150 ML PIGGYBACK 100 MG IV (13:22)
[2023-02-13 14:25] LABS: Basophils Absolute Auto 0.1 X10*3/uL (0.0-0.2); Basophils Percent Auto 0.3 % (0-2); Eosinophils Percent Auto 0.1 % (0-4); Hematocrit 24.1 % (42.0-52.0); Hemoglobin 7.9 g/dl (14.0-18.0); Imm Gran Abs Auto 0.68 X10*3/uL (0.00-0.03); Imm Gran Pct Auto 2.3 % (0.0-0.4); Lymphocytes Absolute Auto 2.8 X10*3/uL (1.2-4.9); Lymphocytes Percent Auto 9.5 % (20-40); MANUAL DIFF FLAG SCAN; Mean Corpuscular HGB Conc 32.8 g/dl (31.0-36.0); Mean Corpuscular Hemoglobin 28.1 pg (27.0-33.0); Mean Corpuscular Volume 85.8 fL (80.0-98.0); Mean Platelet Volume 11.7 fL (9.4-12.4); Monocytes Percent Auto 3.3 % (2-11); NRBC Pct Auto 0.4 /100WBC (0.0-0.2); Neutrophils Absolute Auto 24.7 x10*3/uL (2.0-8.3); Neutrophils Percent Auto 84.5 % (45-73); Platelet Count 126 X10*3/uL (160-400); Red Blood Count 2.81 X10*6/uL (4.60-5.80); Red Cell Distribution Width 16.3 % (11.0-16.0); SCAN SMEAR FLAG 1; White Blood Count 29.2 X10*3/uL (4.8-10.8)
[2023-02-13 14:27] LABS: VBG Base Excess -0.7 mmol/L; VBG HCO3 25 mmol/L (22-26); VBG pCO2 48 mmHg; VBG pH 7.32 (7.32-7.43); VBG pO2 58 mmHg
[2023-02-13 14:27] LABS: Venous Blood Gas Refer to POC result
[2023-02-13 14:39] LABS: Alanine Aminotransferase 175 U/L (0-40); Albumin Level 3.8 g/dL (3.5-5.0); Alkaline Phosphatase 150 U/L (39-117); Anion Gap 23 (12-20); Aspartate Amino Transferase 375 U/L (5-37); Bilirubin Total 1.1 mg/dL (0.0-1.0); Blood Urea Nitrogen 41 mg/dL (9-16); Calcium 8.2 mg/dL (8.4-10.2); Carbon Dioxide 22 mmol/L (22-29); Chloride 106 mmol/L (96-108); Creatinine Clr Calc Pharmacy 49.2; Estimated Glomerular Filt Rate 25; Glucose Random 106 mg/dL (60-115); Potassium 4.2 mmol/L (3.3-5.1); Sodium 147 mmol/L (135-145); Total Protein 7.4 g/dL (6.5-8.0)
[2023-02-13 14:42] LABS: SLIDE REVIEW VERIFIED
[2023-02-13 14:44] LABS: B Type Natriuretic Peptide 1179 pg/mL (<100)
[2023-02-13 14:50] LABS: Troponin-I High Sensitivity 286.2 ng/L (<3.5-35.0)
[2023-02-13 23:52] LABS: MANUAL DIFF FLAG NO
[2023-02-13 23:54] LABS: Basophils Absolute Auto 0.1 X10*3/uL (0.0-0.2); Basophils Percent Auto 0.3 % (0-2); Eosinophils Absolute Auto 0.1 X10*3/uL (0.0-0.4); Eosinophils Percent Auto 0.6 % (0-4); Hematocrit 21.4 % (42.0-52.0); Hemoglobin 7.2 g/dl (14.0-18.0); Imm Gran Abs Auto 0.51 X10*3/uL (0.00-0.03); Imm Gran Pct Auto 2.4 % (0.0-0.4); Lymphocytes Absolute Auto 2.1 X10*3/uL (1.2-4.9); Lymphocytes Percent Auto 9.5 % (20-40); Mean Corpuscular HGB Conc 33.6 g/dl (31.0-36.0); Mean Corpuscular Hemoglobin 27.9 pg (27.0-33.0); Mean Corpuscular Volume 82.9 fL (80.0-98.0); Mean Platelet Volume 11.7 fL (9.4-12.4); Monocytes Percent Auto 4.6 % (2-11); NRBC Pct Auto 0.4 /100WBC (0.0-0.2); Neutrophils Absolute Auto 17.8 x10*3/uL (2.0-8.3); Neutrophils Percent Auto 82.6 % (45-73); Platelet Count 105 X10*3/uL (160-400); Red Blood Count 2.58 X10*6/uL (4.60-5.80); Red Cell Distribution Width 16.3 % (11.0-16.0); White Blood Count 21.5 X10*3/uL (4.8-10.8)
[2023-02-13 23:55] LABS: Venous Blood Gas Refer to POC result
[2023-02-13 23:57] LABS: VBG Base Excess -1.5 mmol/L; VBG HCO3 23 mmol/L (22-26); VBG pCO2 43 mmHg; VBG pH 7.35 (7.32-7.43); VBG pO2 72 mmHg
[2023-02-14] VITALS (38 sets, daily range): BP systolic 94–147; BP diastolic 31–94; PULSE 113–132; RESP 23–93; TEMP 35.1–38.9; O2SAT 87–98; BMI 40.5; BMI 39.4
[2023-02-14] MEDS: propofoL 1,000 MG/100 ML VIAL 40.35 MG IVCONT ×3 (00:09→23:19)
[2023-02-14 00:21] LABS: B Type Natriuretic Peptide 823 pg/mL (<100)
[2023-02-14 00:22] LABS: Alanine Aminotransferase 140 U/L (0-40); Albumin Level 3.4 g/dL (3.5-5.0); Alkaline Phosphatase 120 U/L (39-117); Anion Gap 24 (12-20); Aspartate Amino Transferase 202 U/L (5-37); Bilirubin Total 0.9 mg/dL (0.0-1.0); Blood Urea Nitrogen 62 mg/dL (9-16); Calcium 7.9 mg/dL (8.4-10.2); Carbon Dioxide 20 mmol/L (22-29); Chloride 107 mmol/L (96-108); Creatinine Clr Calc Pharmacy 33.8; Estimated Glomerular Filt Rate 16; Glucose Random 103 mg/dL (60-115); Magnesium 2.1 mg/dL (1.6-2.6); Phosphorus 5.6 mg/dL (2.7-4.5); Potassium 4.3 mmol/L (3.3-5.1); Sodium 147 mmol/L (135-145); Total Protein 6.7 g/dL (6.5-8.0)
[2023-02-14 00:26] LABS: Troponin-I High Sensitivity 157.2 ng/L (<3.5-35.0)
[2023-02-14] MEDS: Calcium Gluconate/NaCl,Iso-Osm 2 GM/100 ML PLAST..BAG IV (01:26)
[2023-02-14] MEDS: Albumin Human 25 % 100 ML IV (01:30)
--- NOTE | 2023-02-14 03:33 | HO.SKINPHOTO ---
Location: Bilateral Back Wound Care Nurse consulted to advise, JEWEL HOLE FINISH OPENER aware.
[2023-02-14] MEDS: levETIRAcetam in NaCl (iso-os) 1,000 MG/100 ML PIGGYBACK 400 MG IV ×2 (04:02→16:22)
[2023-02-14] MEDS: fentaNYL citrate/NS 1,000 MCG/100 ML PLAST..BAG 20 MCG IVCONT ×5 (04:03→23:25)
[2023-02-14] MEDS: Heparin Sodium,Porcine 5,000 UNIT/ML VIAL 5000 UNIT SUBCUT (04:06)
[2023-02-14] MEDS: propofoL 1,000 MG/100 ML VIAL 32.28 MG IVCONT ×6 (04:51→19:18)
[2023-02-14 05:22] LABS: VBG HCO3 21 mmol/L (22-26); VBG pCO2 36 mmHg; VBG pH 7.37 (7.32-7.43); VBG pO2 58 mmHg
[2023-02-14 05:26] LABS: Venous Blood Gas Refer to POC result
[2023-02-14 05:49] LABS: Monocytes Absolute Auto 0.9 X10*3/uL (0.1-1.2); PLT ABN DIST 1; SCAN SMEAR FLAG 1
[2023-02-14 05:51] LABS: Basophils Absolute Auto 0.1 X10*3/uL (0.0-0.2); Basophils Percent Auto 0.3 % (0-2); Eosinophils Absolute Auto 0.2 X10*3/uL (0.0-0.4); Eosinophils Percent Auto 0.8 % (0-4); Imm Gran Abs Auto 0.78 X10*3/uL (0.00-0.03); Imm Gran Pct Auto 4.1 % (0.0-0.4); Lymphocytes Absolute Auto 1.7 X10*3/uL (1.2-4.9); Lymphocytes Percent Auto 9.1 % (20-40); Mean Corpuscular Hemoglobin 27.5 pg (27.0-33.0); Mean Corpuscular Volume 83.4 fL (80.0-98.0); Mean Platelet Volume 12.5 fL (9.4-12.4); Monocytes Percent Auto 4.8 % (2-11); NRBC Pct Auto 0.5 /100WBC (0.0-0.2); Neutrophils Absolute Auto 15.4 x10*3/uL (2.0-8.3); Neutrophils Percent Auto 80.9 % (45-73); PLT CLUMP 1; Red Blood Count 2.47 X10*6/uL (4.60-5.80); Red Cell Distribution Width 16.1 % (11.0-16.0)
[2023-02-14 05:53] LABS: White Blood Count 19.7 X10*3/uL (4.8-10.8)
[2023-02-14 05:54] LABS: Hematocrit 20.6 % (42.0-52.0); Hemoglobin 6.8 g/dl (14.0-18.0); MANUAL DIFF FLAG NO; Platelet Count 119 X10*3/uL (160-400)
[2023-02-14 06:18] LABS: Alanine Aminotransferase 139 U/L (0-40); Albumin Level 3.5 g/dL (3.5-5.0); Alkaline Phosphatase 104 U/L (39-117); Anion Gap 24 (12-20); Aspartate Amino Transferase 218 U/L (5-37); Bilirubin Total 0.9 mg/dL (0.0-1.0); Blood Urea Nitrogen 71 mg/dL (9-16); Carbon Dioxide 19 mmol/L (22-29); Chloride 106 mmol/L (96-108); Creatinine Clr Calc Pharmacy 27.9; Estimated Glomerular Filt Rate 13; Glucose Random 110 mg/dL (60-115); Magnesium 2.2 mg/dL (1.6-2.6); Phosphorus 6.7 mg/dL (2.7-4.5); Potassium 4.3 mmol/L (3.3-5.1); Sodium 145 mmol/L (135-145); Total Protein 6.8 g/dL (6.5-8.0)
[2023-02-14] MEDS: Chlorhexidine Gluc Oral Rinse 15 ML MOUTHWASH BUCCAL ×3 (08:36→20:12)
[2023-02-14] MEDS: Famotidine/PF 20 MG/2 ML VIAL IVPUSH (08:36)
[2023-02-14] MEDS: Heparin Sodium,Porcine 5,000 UNIT/ML VIAL 5000 UNIT INTRACATH (09:57)
--- NOTE | 2023-02-14 11:39 | PM.CCPN ---
Subjective Subjective Date of Service: 02/14/23 Interval History: 32-year-old gentleman with underlying history seizures, encephalocele repair, polysubstance abuse admitted on 02/04/2023 after being unresponsive by his family. On ER evaluation patient With polysubstance abuse, acute renal failure, rhabdomyolysis and agitation requiring multiple sedatives and with escalating FiO2 requirements, eventually requiring intubation for airway protection. Admitted to the intensive care unit. Started on empiric antibiotics and IV fluid support. Rhabdomyolysis essentially resolved. Extubated on 02/08/2023, however still with significant hypoxia and pulmonary edema, now requiring CPAP support. On 02/09/2023 with progressive hypoxia refractory to high-flow and CPAP support requiring re-intubation. On 02/13 at approximately 05:00 patient with sudden onset of hypoxia refractory to maximum ventilatory support with development of bradycardia rapidly deteriorating to asystole. CPR started immediately and return of spontaneous circulation achieved after 4 minutes of CPR. artery study showing worsen metabolic acidosis and renal failure. Patient was initiated on emergent dialysis. Now with ARDS physiology. No events overnight. FiO2 requirements improved with dialysis. Critical Care Time (minutes): 60 Physical Exam Vital Signs: Vital Signs: Last Vital Signs Temp 99.8 F 02/14/23 11:32 Pulse 120 H 02/14/23 11:32 Resp 27 H 02/14/23 11:32 BP 136/86 02/14/23 11:32 Pulse Ox 88 L 02/14/23 11:00 O2 Del Method Mechanical Ventil ation 02/14/23 11:00 O2 Flow Rate 100 02/13/23 11:50 FiO2 65 02/14/23 11:17 BMI result Body Mass Index 39.4 Const: General: no acute distress and other ( Sedated on the vent) Nutritional Appearance: obese and Edematous Eyes: Sclerae: sclerae normal Neck: Neck: Yes no lymphadenopathy, Yes trachea midline and Yes supple Resp: Auscultation: crackles ( bilateral) Cardio: Rate: tachycardic Rhythm: regular rhythm Heart sounds: no gallops, no murmurs and no rubs GI: Palpation (GI): Soft to palpation and Other GI palpation findings present ( Nontender) Auscultation: normal bowel sounds Extrem: General: No clubbing, No cyanosis and Yes edema ( 2+ bilateral) Objective Data Labs 02/14/23 05:13 02/14/23 05:13 Labs: Laboratory Results - last 24 hr 02/13/23 02/13/23 02/13/23 14:13 14:18 23:43 WBC 29.2 H 21.5 H RBC 2.81 L 2.58 L Hgb 7.9 L 7.2 L Hct 24.1 L 21.4 L MCV 85.8 82.9 MCH 28.1 27.9 MCHC 32.8 33.6 RDW 16.3 H 16.3 H Plt Count 126 L 105 L MPV 11.7 11.7 Immature Gran % (Auto) 2.3 H 2.4 H Neut % (Auto) 84.5 H 82.6 H Lymph % (Auto) 9.5 L 9.5 L [place] % (Auto) 3.3 4.6 Eos % (Auto) 0.1 0.6 Baso % (Auto) 0.3 0.3 Lymph # (Auto) 2.8 2.1 [place] # (Auto) 1.0 1.0 Eos # (Auto) 0.0 0.1 Baso # (Auto) 0.1 0.1 Abs Immat Gran (auto) 0.68 H 0.51 H Absolute Neuts (auto) 24.7 H 17.8 H Absolute Nucleated RBC 0.120 H 0.080 H Nucleated RBC % (auto) 0.4 H 0.4 H Smear Tech's Comments VERIFIED VBG pH 7.32 VBG pCO2 48 VBG pO2 58 VBG HCO3 25 VBG O2 Saturation 86.0 VBG Base Excess -0.7 Sodium 147 H 147 H Potassium 4.2 D 4.3 Chloride 106 107 Carbon Dioxide 22 20 L Anion Gap 23 H 24 H BUN 41 H 62 H Creatinine 2.96 H 4.31 H* Estim Creat Clear Calc 49.2 33.8 Estimated GFR 25 16 Random Glucose 106 103 Calcium 8.2 L 7.9 L Phosphorus 5.6 H Magnesium 2.1 Total Bilirubin 1.1 H 0.9 AST 375 H 202 H ALT 175 H 140 H Alkaline Phosphatase 150 H 120 H Troponin I High Sens 286.2 H* 157.2 H* B-Natriuretic Peptide 1179 H 823 H Total Protein 7.4 6.7 Albumin 3.8 3.4 L Blood Type Antibody Screen Crossmatch 02/13/23 02/14/23 02/14/23 23:50 05:13 05:15 WBC 19.7 H RBC 2.47 L Hgb 6.8 L* Hct 20.6 L* MCV 83.4 MCH 27.5 MCHC 33.0 RDW 16.1 H Plt Count 119 L MPV 12.5 H Immature Gran % (Auto) 4.1 H Neut % (Auto) 80.9 H Lymph % (Auto) 9.1 L [place] % (Auto) 4.8 Eos % (Auto) 0.8 Baso % (Auto) 0.3 Lymph # (Auto) 1.7 [place] # (Auto) 0.9 Eos # (Auto) 0.2 Baso # (Auto) 0.1 Abs Immat Gran (auto) 0.78 H Absolute Neuts (auto) 15.4 H Absolute Nucleated RBC 0.100 H Nucleated RBC % (auto) 0.5 H Smear Tech's Comments VBG pH 7.35 7.37 VBG pCO2 43 36 VBG pO2 72 58 VBG HCO3 23 21 L VBG O2 Saturation 95.0 86.0 VBG Base Excess -1.5 -3.0 Sodium 145 Potassium 4.3 Chloride 106 Carbon Dioxide 19 L Anion Gap 24 H BUN 71 H Creatinine 5.05 H* Estim Creat Clear Calc 27.9 Estimated GFR 13 Random Glucose 110 Calcium 8.0 L Phosphorus 6.7 H Magnesium 2.2 Total Bilirubin 0.9 AST 218 H ALT 139 H Alkaline Phosphatase 104 Troponin I High Sens B-Natriuretic Peptide Total Protein 6.8 Albumin 3.5 Blood Type Antibody Screen Crossmatch 02/14/23 07:16 WBC RBC Hgb Hct MCV MCH MCHC RDW Plt Count MPV Immature Gran % (Auto) Neut % (Auto) Lymph % (Auto) [place] % (Auto) Eos % (Auto) Baso % (Auto) Lymph # (Auto) [place] # (Auto) Eos # (Auto) Baso # (Auto) Abs Immat Gran (auto) Absolute Neuts (auto) Absolute Nucleated RBC Nucleated RBC % (auto) Smear Tech's Comments VBG pH VBG pCO2 VBG pO2 VBG HCO3 VBG O2 Saturation VBG Base Excess Sodium Potassium Chloride Carbon Dioxide Anion Gap BUN Creatinine Estim Creat Clear Calc Estimated GFR Random Glucose Calcium Phosphorus Magnesium Total Bilirubin AST ALT Alkaline Phosphatase Troponin I High Sens B-Natriuretic Peptide Total Protein Albumin Blood Type O Positive Antibody Screen NEGATIVE Crossmatch See Detail Microbiology Microbiology Results: Microbiology 02/12/23 14:41 Sputum - Suctioned Gram Stain - Final 02/12/23 14:41 Sputum - Suctioned Sputum Culture - Final 02/04/23 16:33 Blood - Venous Blood Culture - Final No growth after 5 days. 02/04/23 15:32 Blood - Venous Blood Culture - Final No growth after 5 days. 02/05/23 07:25 Sputum - Suctioned Gram Stain - Final 02/05/23 07:25 Sputum - Suctioned Sputum Culture - Final Progress Note: A&P Assessment and plan (1) Cardiac arrest with successful resuscitation: Status: Acute (2) Acute renal failure: Status: Acute (3) ARDS (adult respiratory distress syndrome): Status: Acute (4) Pulmonary edema: Status: Acute (5) Polysubstance abuse: Status: Acute (6) Seizure: Status: Acute Plan Assessment: 32-year-old gentleman admitted with polysubstance abuse, agitation, aspiration pneumonitis versus pneumonia, rhabdomyolysis, and acute kidney injury, now requiring ventilatory support. Plan: Neuro: Acute toxic encephalopathy secondary to polysubstance abuse. Underlying seizure disorder. Continue on Keppra. Cardiac: respiratory arrest with returned spontaneous circulation after 4 rouds of CPR. 2D echo is ordered. Pulmonary: acute respiratory failure with hypoxia secondary to pulmonary aspiration, initially requiring ventilatory support. Also with significant component of pulmonary edema now with ARDS physiology. Extubated 02/08/2023. Reintubated on 02/09/2023 secondary to hypoxia refractory to high-flow /CPAP support. Continue to titrate off ventilatory support as tolerated. Renal: Acute renal failure and rhabdomyolysis, metabolic acidosis and hyperkalemia improved with hemodialysis. Nephrology service care appreciated. Continue on hemodialysis. Continue to monitor renal indices and urine output. Endo: No acute issues. GI: No acute issues ID: Empirically covered for aspiration pneumonia. Repeat sputum culture with normal respiratory ish. Heme/Onc: No acute issues. Psych: No acute issues. Miscellaneous: No acute issues. Prophylaxis: heparin, famotidine Diet: tube feeds Critical care time spent: 60 minutes Quality Stroke Does the patient have a stroke diagnosis?: No VTE Prior VTE?: No VTE Risk Level:: Medical - moderate - high VTE Device Contraindication: N/A - Device Ordered VTE Drug Contraindication: N/A - Med Ordered
[2023-02-14] MEDS: propofoL 1,000 MG/100 ML VIAL 36.32 MG IVCONT (21:27)
[2023-02-15] VITALS (31 sets, daily range): BP systolic 99–151; BP diastolic 57–99; PULSE 102–133; RESP 16–33; TEMP 34.4–38.2; O2SAT 92–100; BMI 39.9
[2023-02-15] MEDS: propofoL 1,000 MG/100 ML VIAL 40.35 MG IVCONT ×11 (01:23→23:40)
[2023-02-15] MEDS: levETIRAcetam in NaCl (iso-os) 1,000 MG/100 ML PIGGYBACK 400 MG IV ×2 (03:33→16:49)
[2023-02-15] MEDS: fentaNYL citrate/NS 1,000 MCG/100 ML PLAST..BAG 20 MCG IVCONT ×5 (03:46→23:45)
[2023-02-15 04:53] LABS: VBG Base Excess -1.7 mmol/L; VBG HCO3 22 mmol/L (22-26); VBG pCO2 35 mmHg; VBG pO2 58 mmHg
[2023-02-15 04:54] LABS: Venous Blood Gas Refer to POC result
[2023-02-15 06:05] LABS: Hematocrit 23.8 % (42.0-52.0); Hemoglobin 8.2 g/dl (14.0-18.0); Mean Corpuscular HGB Conc 34.5 g/dl (31.0-36.0); Mean Corpuscular Hemoglobin 28.6 pg (27.0-33.0); Mean Corpuscular Volume 82.9 fL (80.0-98.0); Mean Platelet Volume 13.7 fL (9.4-12.4); NRBC Pct Auto 0.6 /100WBC (0.0-0.2); Platelet Count 147 X10*3/uL (160-400); Red Blood Count 2.87 X10*6/uL (4.60-5.80); Red Cell Distribution Width 15.8 % (11.0-16.0); White Blood Count 19.3 X10*3/uL (4.8-10.8)
[2023-02-15 06:23] LABS: Alanine Aminotransferase 148 U/L (0-40); Albumin Level 3.4 g/dL (3.5-5.0); Alkaline Phosphatase 124 U/L (39-117); Anion Gap 27 (12-20); Aspartate Amino Transferase 184 U/L (5-37); Bilirubin Total 0.9 mg/dL (0.0-1.0); Blood Urea Nitrogen 72 mg/dL (9-16); Calcium 7.8 mg/dL (8.4-10.2); Carbon Dioxide 19 mmol/L (22-29); Chloride 97 mmol/L (96-108); Creatinine Clr Calc Pharmacy 26.4; Estimated Glomerular Filt Rate 13; Glucose Random 120 mg/dL (60-115); Magnesium 2.4 mg/dL (1.6-2.6); Phosphorus 8.1 mg/dL (2.7-4.5); Potassium 4.1 mmol/L (3.3-5.1); Sodium 139 mmol/L (135-145); Total Protein 7.2 g/dL (6.5-8.0)
[2023-02-15 06:34] LABS: Band Neutrophils Percent 12 % (3-5); Basophilic Stippling 1+ (0-2) /OIF; Burr Cells 1+ (0-2) /OIF; Hypochromasia 1+ (5-14) /OIF; Large Platelet PRESENT; Lymphocytes Absolute Manual 0.6 X10*3/uL (1.2-4.9); Lymphocytes Percent Manual 3 % (20-40); Macrocytosis 1+ (5-14) /OIF; Myelocytes Absolute 0.2 X10*/uL; Myelocytes Percent 1 %; Neutrophils Absolute Manual 18.5 X10*3/uL (2.0-8.3); Neutrophils Percent Manual 84 % (45-73); Platelet Estimate SLIGHTLY DECREASED (NORMAL); Platelet Morphology Comment NOTED; Polychromasia 2+ (3-5) /OIF; RBC Morphology NOTED; Tear Drop Cells 2+ (3-5) /OIF
[2023-02-15 06:35] LABS: Smudge Cells PRESENT
--- NOTE | 2023-02-15 07:00 | CA_ITS ---
Transthoracic Echocardiogram Patient (Last, First, Middle): Reynaldo Reynoso, Gender: Male Date of : 1990 Age: 32 Procedure Date: 02/15/2023 Procedure Type: Transthoracic Echocardiogram Location: ICU Height: 177.8 cm Weight: 125.65 kg BSA: 2.40 m2 Heart Rate: 106 bpm BP: 123 / 69 mmHg Veneer Lathe Operator: OSKAR Marcus MD: Silvestre Quigley NP Piling Setter: Vinh Salamanca MD Symptoms: post cardiad arrest Study Quality: Technically Difficult/w Contrast ECG Rhythm: Tachycardia Conclusions: - 1. Normal LV ejection fraction 55-60% 2. Normal cardiac valvular Doppler 3. Normal RV systolic pressure 4. Small effusion loculated near the left ventricle Findings Procedure Information Contrast agent, definity, is being given per protocol with complications as noted. The study quality is limited by the presence of a ventilator. Left Ventricle Normal left ventricular size, thickness, and systolic function. The visually estimated ejection fraction is between 55-60%. Spectral Doppler is indicative of a normal filling pattern. Right Ventricle Normal right ventricular cavity size and systolic function. Atria The left atrium is normal in size. Interatrial shunt cannot be excluded. The right atrium is normal in size. Aortic Valve The aortic valve structure and function is likely normal. There is no aortic valve stenosis. There is no aortic valve regurgitation. Mitral Valve Normal mitral valve structure and function. There is trace mitral valve regurgitation. There is no mitral valve stenosis. Pulmonic Valve The pulmonic valve is likely normal. There is trace pulmonic valve regurgitation. Tricuspid Valve Normal tricuspid valve structure. There is mild tricuspid valve regurgitation. The right ventricular systolic pressure is normal. The right ventricular systolic pressure is 25 mmHg. Normal right atrial pressure. There is no evidence of pulmonary hypertension. Great Vessels All visible segments of the aorta are normal in size. The pulmonary artery was not well visualized. Venous The inferior vena cava is normal in size and collapses less than 50% with inspiration. Patient on positive pressure ventilation Pericardium/Pleural There is a small loculated pericardial effusion overlying the left ventricle. Prior Study Comparison No prior study available for comparison. Measurements 2D Linear Measurements IVSd: 1.12 0.6-0.9/0.6-1.0 cm LVIDd: 4.60 3.9-5.3/4.2-5.9 cm LVIDd Index: 1.92 2.4-3.2/2.2-3.1 cm/m2 LVIDs: 2.75 2.0-3.6 cm LVPWd: 1.11 0.7-1.1 cm LA Diam: 3.20 2.7-3.8/3.0-4.0 cm LAIDs Index: 1.33 1.5-2.3 cm/m2 LV Mass: 230.13 67-162/88-224 g LV Mass Index: 95.89 43-95/49-115 g/m2 LVOT Diam: 2.10 3.0+(-)1.3 cm 2D Systolic Function EF 4C: 59.20 >55% EF 2C: 59.30 >55% EF BiP: 59.20 >55% Mitral Valve MV Pk E: 0.85 MV PK A: 0.76 MV Decel Time: 349.00 E/A: 1.10 E'Lateral: 14.50 E'Medial: 8.59 E/E' Med: 9.90 E/E' Lat: 5.80 PHT: 102.00 MVA PHT: 2.16 Decel [place]: 2.43 Aortic Valve AoV Pk Jelani: 1.67 AoV Mn Jelani: 1.17 AoV VTI: 0.23 AoV Pk Grad: 11.00 Aov Mn Grad: 6.00 TRENA Cont.VTI: 3.05 LVOT LVOT Pk Jelani: 1.40 LVOT Mn Jelani: 1.00 LVOT VTI: 0.21 LVOT Pk Grad: 8.00 LVOT Mn Grad: 5.00 LVOT Diam: 2.10 LVOT Area: 3.46 Diastolic Function MV Pk E: 0.85 MV Pk A: 0.76 E/A: 1.10 E'Medial: 8.59 E/E' Med: 9.90 E' Laterial: 14.50 E/E' Lat: 5.80 Right Ventricle TAPSE (mm): 17.50 TVS' Jelani: 11.00 Tricuspid Valve TR Pk Jelani: 1.59 TR Pk Grad: 10.00 RA Press: 15.00 RVSP: 25.00 Great Vessels Aorta Sinus of Valsalva: 3.70 2.0-3.5 cm Ao Asc: 3.00 2.1-3.4 cm Pulmonary Valve PV Pk Jelani: 0.94 Peak PV Grad: 4.00 Updated in Other Vendor System with Status of Final Vinh Salamanca MD electronically signed on 02/15/2023 3:59:24 PM with status of Final
[2023-02-15] MEDS: Calcium Gluconate/NaCl,Iso-Osm 2 GM/100 ML PLAST..BAG IV (08:01)
[2023-02-15] MEDS: Famotidine/PF 20 MG/2 ML VIAL IVPUSH (08:01)
[2023-02-15] MEDS: Chlorhexidine Gluc Oral Rinse 15 ML MOUTHWASH BUCCAL ×3 (08:02→21:36)
--- NOTE | 2023-02-15 08:39 | PM.CCPN ---
Subjective Subjective Date of Service: 02/15/23 Critical Care Time (minutes): 90 Physical Exam Vital Signs: Vital Signs: Last Vital Signs Temp 98.3 F 02/15/23 08:00 Pulse 111 H 02/15/23 08:00 Resp 24 H 02/15/23 08:00 BP 122/70 02/15/23 08:00 Pulse Ox 94 02/15/23 08:00 O2 Del Method Mechanical Ventil ation 02/15/23 08:00 O2 Flow Rate 100 02/13/23 11:50 FiO2 80 02/15/23 08:00 BMI result Body Mass Index 39.9 Const: Other: intubated, sedated; morbid obesity; opens eyes spontaneously General: no acute distress HEENT: Head: Yes normal to inspection, Yes normocephalic and Yes atraumatic Eyes: General: appearance normal, both eyes and all related structures Neck: Neck: Yes normal visual inspection, Yes full ROM and Yes supple Chest: Chest palpation & inspection: normal inspection of the chest Resp: Other: some appreciable rhonchi; no appreciable rales, wheezing Cardio: Rate: regular rate Rhythm: regular rhythm GI: Other: distended, though soft, compressible; no appreciable guarding, rebound Inspection: Yes normal to inspection and No Abdominal wall edema Skin: General skin exam: no rashes or lesions noted Neuro: Other: spontaneous eye opening; unable to follow commands Extrem: Other: gross anasarca General: Yes capillary refill normal Objective Data Labs 02/15/23 04:49 02/15/23 04:49 Labs: Laboratory Results - last 24 hr 02/14/23 02/15/23 02/15/23 07:16 04:47 04:49 WBC 19.3 H RBC 2.87 L Hgb 8.2 L D Hct 23.8 L MCV 82.9 MCH 28.6 MCHC 34.5 RDW 15.8 Plt Count 147 L MPV 13.7 H Immature Gran % (Auto) Cancelled Neut % (Auto) Cancelled Lymph % (Auto) Cancelled [place] % (Auto) Cancelled Eos % (Auto) Cancelled Baso % (Auto) Cancelled Lymph # (Auto) Cancelled [place] # (Auto) Cancelled Eos # (Auto) Cancelled Baso # (Auto) Cancelled Abs Immat Gran (auto) Cancelled Absolute Neuts (auto) Cancelled Absolute Nucleated RBC 0.110 H Nucleated RBC % (auto) 0.6 H Neutrophils % (Manual) 84 H Band Neutrophils % 12 H Lymphocytes % (Manual) 3 L Myelocytes % 1 Abs Neuts (Manual) 18.5 H Lymphocytes # (Manual) 0.6 L Myelocytes # 0.2 Smudge Cells PRESENT Platelet Estimate SLIGHTLY DECREASED Large Platelets PRESENT Plt Morphology Comment NOTED RBC Morphology NOTED Polychromasia 2+ (3-5) Hypochromasia 1+ (5-14) Basophilic Stippling 1+ (0-2) Macrocytosis 1+ (5-14) Tear Drop Cells 2+ (3-5) [place] Cells 1+ (0-2) VBG pH 7.40 VBG pCO2 35 VBG pO2 58 VBG HCO3 22 VBG O2 Saturation 85.0 VBG Base Excess -1.7 Sodium 139 Potassium 4.1 Chloride 97 Carbon Dioxide 19 L Anion Gap 27 H BUN 72 H Creatinine 5.26 H* Estim Creat Clear Calc 26.4 Estimated GFR 13 Random Glucose 120 H Calcium 7.8 L Phosphorus 8.1 H Magnesium 2.4 Total Bilirubin 0.9 AST 184 H ALT 148 H Alkaline Phosphatase 124 H Total Protein 7.2 Albumin 3.4 L Blood Type O Positive Antibody Screen NEGATIVE Crossmatch See Detail Microbiology Microbiology Results: Microbiology 02/12/23 14:41 Sputum - Suctioned Gram Stain - Final 02/12/23 14:41 Sputum - Suctioned Sputum Culture - Final 02/04/23 16:33 Blood - Venous Blood Culture - Final No growth after 5 days. 02/04/23 15:32 Blood - Venous Blood Culture - Final No growth after 5 days. 02/05/23 07:25 Sputum - Suctioned Gram Stain - Final 02/05/23 07:25 Sputum - Suctioned Sputum Culture - Final Progress Note: A&P Assessment and plan (1) Cardiac arrest with successful resuscitation: Status: Acute (2) Acute renal failure: Status: Acute (3) ARDS (adult respiratory distress syndrome): Status: Acute (4) Polysubstance abuse: Status: Acute (5) Aspiration pneumonia: Status: Acute Plan Patient is a 32 Y M w/ epilepsy, polysubstance misuse, found unresponsive on 02/04, found to have rhabdomyolysis, c/b acute renal failure, acute hypoxic respiratory failure, intubated; ICU course c/b extubation 02/08, re-intubation 02/09, as well as hypoxic cardiac arrest 02/13 N: intubated, sedated w/ propofol gtt; wean sedation daily for neurological exam as tolerated CV: cardiac arrest 02/13 R: acute hypoxic respiratory failure, c/b ARDS, cardiac arrest; LPV protocol; wean ventilator daily as tolerated GI: no acute issues : acute renal failure c/b volume overload, on hemodialysis; last hemodialysis session 02/15, goal -4L H: no acute issues ID: c/f aspiration pneumonia; levofloxacin E: no acute issues P: polysubstance misuse Quality Stroke Does the patient have a stroke diagnosis?: No VTE Prior VTE?: No VTE Risk Level:: Medical - moderate - high VTE Device Contraindication: N/A - Device Ordered VTE Drug Contraindication: N/A - Med Ordered
[2023-02-15 09:53] LABS: VBG Base Excess 0.1 mmol/L; VBG HCO3 25 mmol/L (22-26); VBG pCO2 44 mmHg; VBG pH 7.36 (7.32-7.43); VBG pO2 100 mmHg
[2023-02-15 09:54] LABS: Venous Blood Gas Refer to POC result
--- NOTE | 2023-02-15 10:45 | MHC.CLN ---
F/U DISCUSSED AT ROUNDS WITH REVIEWED LABS PT RECEIVING PROMOTE AT 30ML/HR WITH 120ML FWF Q 4 HRS PROVIDES 720KCALS (1785KCALS WITH SEDATION; 24KCALS/KG BASED ON IBW), 45G PROTEIN, 1324ML TOTAL WATER FROM FORMULA AND FLUSHES (18ML/KG BASED ON IBW) TOLERATING WELL PER NSG MONITOR TOLERANCE, RESIDUALS AND LYTES-WILL MONITOR RENAL LYTES CLOSELY AND CONSIDER NEPRO IF NO IMPROVEMENT
[2023-02-15] MEDS: levoFLOXacin/D5W 750 MG/150 ML PIGGYBACK 100 MG IV (12:29)
--- NOTE | 2023-02-15 16:14 | MHC.CM.PN ---
Pt continues care in ICU: Vent weaning attempts w/FIO2 reduction: Pt started on HD d/t worsening renal status. D/C planning ongoing and will depend on clinical improvement. CM to follow
--- NOTE | 2023-02-15 16:39 | P.CONNP_ITS ---
History of Present Illness Reason for Consult Consult date: 02/15/23 Reason for consult: HAILY Chief Complaint Chief complaint: rhabdomylosis History of Present Illness Narrative: 32-year-old gentleman with underlying history seizures, encephalocele repair, polysubstance abuse admitted on 02/04/2023 after being unresponsive by his family. On ER evaluation patient With polysubstance abuse, acute renal failure, rhabdomyolysis and agitation requiring multiple sedatives and with escalating FiO2 requirements, eventually requiring intubation for airway protection. Admitted to the intensive care unit. Started on empiric antibiotics and IV fluid support. Extubated on 02/08/2023, however still with significant hypoxia and pulmonary edema, requiring CPAP support. On 02/09/2023 with progressive hypoxia refractory to high-flow and CPAP support requiring re- intubation. On 02/13 at approximately 05:00 patient with sudden onset of hypoxia refractory to maximum ventilatory support with development of bradycardia rapidly deteriorating to asystole. CPR started immediately and return of spontaneous circulation achieved after 4 minutes of CPR. W/U showed worsening metabolic acidosis and renal failure. Nephrology was consulted to assist in his clinical management. Patient was initiated on emergent dialysis. Review of Systems Review of Systems Yes Unobtainable due to mental condition PMFSH Past Medical History Medical History (Updated 02/15/23 @ 16:42 by Bipin Emanuel MD) Frontal encephalocele Social History Social History (System 02/05/23 @ 07:13 by Treva Rivero) Unable to assess alcohol history related to: Unable to respond Alcohol intake: unknown Substance Use Type: Marijuana Currently Displaying Signs/Symptoms of Drug Intoxication Withdrawal: No Advance Directives: No Advance Directives Information Provided: Yes Meds Allergies Allergy/AdvReac Type Severity Reaction Status Date / Time No Known Allergies Allergy Unverified 02/05/23 07:13 [No Known Allergies*] Active Medications: Current Medications Acetaminophen (Acetaminophen Oral Liquid 650 Mg/20.3 Ml Solution) 650 mg PO Q6H PRN PRN Reason: fever >103 Last Admin: 02/12/23 21:57 Dose: 650 mg Chlorhexidine Gluconate (Chlorhexidine Gluc Oral Rinse 15 Ml Mouthwash) 15 ml BUCCAL TID [facility] Last Admin: 02/15/23 08:02 Dose: 15 ml Famotidine (Famotidine/Pf 20 Mg/2 Ml Vial) 20 mg IVPUSH DAILY [facility] Last Admin: 02/15/23 08:01 Dose: 20 mg Heparin Sodium (Porcine) (Heparin Sodium,Porcine 5,000 Unit/Ml Vial) 5,000 unit SUBCUT Q8H [facility] Last Admin: 02/15/23 11:34 Dose: Not Given Levetiracetam (Keppra) 1,000 mg in 100 mls @ 400 mls/hr IV Q12H [facility] Last Infusion: 02/15/23 03:57 Dose: Infused Propofol (Diprivan) 1,000 mg in 100 mls @ 0 mls/hr IVCONT .Q0M [facility]; Protocol Last Admin: 02/15/23 15:15 Dose: 50 mcg/kg/min, 40.35 mls/hr Norepinephrine Bitartrate (Levophed) 8 mg in 250 mls @ 0 mls/hr IV .Q0M [facility]; Protocol Last Titration: 02/14/23 03:53 Dose: 0 mcg/kg/min, 0 mls/hr Fentanyl (Sublimaze/Ns) 1,000 mcg in 100 mls @ 0 mls/hr IVCONT .Q0M [facility]; Protocol Last Admin: 02/15/23 13:34 Dose: 200 mcg/hr, 20 mls/hr Levofloxacin (Levaquin) 750 mg in 150 mls @ 100 mls/hr IV Q48H [facility] Last Infusion: 02/15/23 14:54 Dose: Infused Metoprolol Tartrate (Metoprolol Tartrate 5 Mg/5 Ml Vial) 5 mg IVPUSH Q6H PRN PRN Reason: SBP > 160 Last Admin: 02/12/23 16:12 Dose: 5 mg Nystatin (Nystatin Cream 15 Gm Tube) 1 appl TOPICAL BID [facility]; Protocol Home Medications Medication Instructions Recorded Confirmed Last Taken Type buspirone 15 mg tablet 15 mg PO TID 02/04/23 02/04/23 Unknown History clonidine HCl 0.1 mg tablet 0.1 mg PO BID 02/04/23 02/04/23 Unknown History diltiazem HCl 240 mg 240 mg PO DAILY 02/04/23 02/04/23 Unknown History capsule,extended release 24 hr levetiracetam 500 mg tablet 500 mg PO BID 02/04/23 02/04/23 Unknown History quetiapine 200 mg tablet 200 mg PO BEDTIME 02/04/23 02/04/23 Unknown History quetiapine 50 mg tablet 75 mg PO DAILY 02/04/23 02/04/23 Unknown History sertraline 50 mg tablet 150 mg PO DAILY 02/04/23 02/04/23 Unknown History trazodone 100 mg tablet 100 mg PO BEDTIME 02/04/23 02/04/23 Unknown History Physical Exam Vital Signs: Last Vital Signs Temp 98.0 F 02/15/23 12:00 Pulse 109 H 02/15/23 15:00 Resp 21 H 02/15/23 15:00 BP 119/70 02/15/23 15:00 Pulse Ox 97 02/15/23 15:00 O2 Del Method Mechanical Ventilation 02/15/23 15:00 O2 Flow Rate 100 02/13/23 11:50 FiO2 65 02/15/23 15:21 BMI result Body Mass Index 39.9 Const Other: Intubated; Anasarca General: no acute distress Eyes EOM: EOMs intact bilaterally Resp Auscultation: rhonchi and diminished lung sounds Cardio Rate: regular rate GI Palpation (GI): Soft to palpation Neuro Other: Sedated Results Lab Results 02/15/23 04:49 02/15/23 04:49 Lab results: Chemistry 02/12/23 02/12/23 02/13/23 19:10 21:55 05:28 Sodium 152 H 151 H 150 H Potassium 4.0 4.8 5.3 H Carbon Dioxide 20 L 16 L 20 L BUN 28 H 31 H 44 H Creatinine 1.38 1.64 H 2.85 H Calcium 8.6 8.6 8.2 L Phosphorus 4.1 5.5 H 6.5 H 02/13/23 02/13/23 02/14/23 14:13 23:43 05:13 Sodium 147 H 147 H 145 Potassium 4.2 D 4.3 4.3 Carbon Dioxide 22 20 L 19 L BUN 41 H 62 H 71 H Creatinine 2.96 H 4.31 H* 5.05 H* Calcium 8.2 L 7.9 L 8.0 L Phosphorus 5.6 H 6.7 H 02/15/23 04:49 Sodium 139 Potassium 4.1 Carbon Dioxide 19 L BUN 72 H Creatinine 5.26 H* Calcium 7.8 L Phosphorus 8.1 H Hematology 02/13/23 02/13/23 02/13/23 05:28 14:13 23:43 WBC 29.2 H 29.2 H 21.5 H Hgb 7.6 L 7.9 L 7.2 L Plt Count 150 L 126 L 105 L 02/14/23 02/15/23 05:13 04:49 WBC 19.7 H 19.3 H Hgb 6.8 L* 8.2 L D Plt Count 119 L 147 L Assessment and Plan (1) Acute renal failure: Qualifiers: Acute renal failure type: with acute tubular necrosis Qualified Code(s): N17.0 - Acute kidney failure with tubular necrosis Status: Acute Plan HAILY due to tubular injury Needed emergent HD Dialyzed again this AM Still hypervolemic Likely will need HD again tomorrow C/W rest of current management Labs AM; Shall closely F/U Procedures Date of Service Date of Service: 02/15/23
[2023-02-15] MEDS: Nystatin Cream 15 GM TUBE 1 APPL TOPICAL (21:35)
[2023-02-16] VITALS (33 sets, daily range): BP systolic 104–134; BP diastolic 42–78; PULSE 116–132; RESP 25–115; TEMP -11.9–39.3; O2SAT 90–98; BMI 39.6
[2023-02-16] MEDS: propofoL 1,000 MG/100 ML VIAL 40.35 MG IVCONT ×9 (02:07→21:37)
[2023-02-16] MEDS: fentaNYL citrate/NS 1,000 MCG/100 ML PLAST..BAG 20 MCG IVCONT ×5 (04:02→23:18)
[2023-02-16] MEDS: levETIRAcetam in NaCl (iso-os) 1,000 MG/100 ML PIGGYBACK 400 MG IV ×2 (04:04→15:43)
--- NOTE | 2023-02-16 04:58 | PC.NURSE ---
Assumed care of patient at 1900. Patient's peep setting weaned to 10 overnight. PA requested an intra abdominal pressure reading, measurement was 15 at 0105. Patient opens eyes when receiving care, intermittently tracks with care.
[2023-02-16 05:14] LABS: Hematocrit 23.3 % (42.0-52.0); Hemoglobin 8.3 g/dl (14.0-18.0); Mean Corpuscular HGB Conc 35.6 g/dl (31.0-36.0); Mean Corpuscular Hemoglobin 29.4 pg (27.0-33.0); Mean Corpuscular Volume 82.6 fL (80.0-98.0); NRBC Pct Auto 1.4 /100WBC (0.0-0.2); Platelet Count 195 X10*3/uL (160-400); Red Blood Count 2.82 X10*6/uL (4.60-5.80); Red Cell Distribution Width 15.9 % (11.0-16.0); White Blood Count 20.2 X10*3/uL (4.8-10.8)
[2023-02-16 05:34] LABS: Anion Gap 28 (12-20); Blood Urea Nitrogen 70 mg/dL (9-16); Calcium 8.4 mg/dL (8.4-10.2); Carbon Dioxide 18 mmol/L (22-29); Chloride 98 mmol/L (96-108); Creatinine Clr Calc Pharmacy 25.3; Estimated Glomerular Filt Rate 12; Glucose Random 118 mg/dL (60-115); Magnesium 2.6 mg/dL (1.6-2.6); Potassium 4.6 mmol/L (3.3-5.1); Sodium 139 mmol/L (135-145)
[2023-02-16 05:57] LABS: Ammonia 61 umol/L (13-55)
[2023-02-16 05:58] LABS: Band Neutrophils Percent 12 % (3-5); Eosinophils Absolute Manual 0.4 X10*3/uL (0.0-0.4); Eosinophils Percent Manual 2 % (0-4); Lymphocytes Absolute Manual 1.4 X10*3/uL (1.2-4.9); Lymphocytes Percent Manual 7 % (20-40); Metamyelocytes Absolute 0.4 X10*3/uL; Metamyelocytes Percent 2 %; Monocytes Absolute Manual 0.6 X10*3/uL (0.1-1.2); Monocytes Percent Manual 3 % (2-11); Myelocytes Absolute 0.8 X10*/uL; Myelocytes Percent 4 %; Neutrophils Absolute Manual 16.2 X10*3/uL (2.0-8.3); Neutrophils Percent Manual 68 % (45-73); Nucleated Red Blood Cells 2 /100WBC (0-0); Promyelocytes Absolute 0.4 X10*3/uL; Promyelocytes Percent 2 %
[2023-02-16 06:00] LABS: Basophilic Stippling 1+ (0-2) /OIF; Large Platelet PRESENT; Platelet Estimate NORMAL (NORMAL); Platelet Morphology Comment NOTED; Polychromasia 1+ (0-2) /OIF; RBC Morphology NOTED; Smudge Cells PRESENT; Tear Drop Cells 2+ (3-5) /OIF; Toxic Granulation PRESENT
[2023-02-16 06:01] LABS: Toxic Vacuolation PRESENT
--- NOTE | 2023-02-16 07:57 | P.PNCC_ITS ---
Subjective Subjective Date of Service: 02/16/23 Interval History: no significant overnight events Critical Care Time (minutes): 90 Physical Exam 2 Vital Signs: Vital Signs: Last Vital Signs Temp 101.1 F H 02/16/23 07:00 Pulse 129 H 02/16/23 07:00 Resp 32 H 02/16/23 07:00 BP 129/66 02/16/23 07:00 Pulse Ox 95 02/16/23 07:00 O2 Del Method Mechanical Ventil ation 02/16/23 07:00 O2 Flow Rate 70 02/16/23 04:00 FiO2 70 02/16/23 07:29 BMI result Body Mass Index 39.6 Const: Other: intubated, sedated HEENT: Head: Yes normal to inspection, Yes normocephalic and Yes atraumatic Eyes: General: appearance normal, both eyes and all related structures Neck: Neck: Yes normal visual inspection, Yes full ROM and Yes supple Chest: Chest palpation & inspection: normal inspection of the chest Resp: Other: appreciable rhonchi and rales throughout; no appreciable wheezing Effort & Inspection: normal respiratory effort Cardio: Rate: tachycardic Rhythm: regular rhythm GI: Other: distended, though soft, compressible; no appreciable guarding, rebound Inspection: Yes normal to inspection : Male General Exam: Yes normal external exam Skin: General skin exam: no rashes or lesions noted Neuro: Other: unable to follow commands; some spontaneous eye and arm movements General: tone normal Extrem: Other: 2+ pitting edema to bilateral knees General: Yes capillary refill normal Psych: Other: unable to assess Objective Data Labs 02/16/23 04:54 02/16/23 04:54 Labs: Laboratory Results - last 24 hr 02/15/23 02/16/23 09:46 04:54 WBC 20.2 H RBC 2.82 L Hgb 8.3 L Hct 23.3 L MCV 82.6 MCH 29.4 MCHC 35.6 RDW 15.9 Plt Count 195 D MPV 13.0 H Absolute Nucleated RBC 0.280 H Nucleated RBC % (auto) 1.4 H Neutrophils % (Manual) 68 Band Neutrophils % 12 H Lymphocytes % (Manual) 7 L Monocytes % (Manual) 3 Eosinophils % (Manual) 2 Metamyelocytes % 2 Myelocytes % 4 Promyelocytes % 2 Abs Neuts (Manual) 16.2 H Lymphocytes # (Manual) 1.4 Monocytes # (Manual) 0.6 Eosinophils # (Manual) 0.4 Metamyelocytes # 0.4 Myelocytes # 0.8 Promyelocytes # 0.4 Nucleated RBCs 2 H Smudge Cells PRESENT Toxic Granulation PRESENT Toxic Vacuolation PRESENT Platelet Estimate NORMAL Large Platelets PRESENT Plt Morphology Comment NOTED RBC Morphology NOTED Polychromasia 1+ (0-2) Basophilic Stippling 1+ (0-2) Tear Drop Cells 2+ (3-5) VBG pH 7.36 VBG pCO2 44 VBG pO2 100 VBG HCO3 25 VBG O2 Saturation 99.0 VBG Base Excess 0.1 Sodium 139 Potassium 4.6 Chloride 98 Carbon Dioxide 18 L Anion Gap 28 H BUN 70 H Creatinine 5.51 H* Estim Creat Clear Calc 25.3 Estimated GFR 12 Random Glucose 118 H Calcium 8.4 D Magnesium 2.6 Ammonia 61 H Microbiology Microbiology Results: Microbiology 02/12/23 14:41 Sputum - Suctioned Gram Stain - Final 02/12/23 14:41 Sputum - Suctioned Sputum Culture - Final 02/04/23 16:33 Blood - Venous Blood Culture - Final No growth after 5 days. 02/04/23 15:32 Blood - Venous Blood Culture - Final No growth after 5 days. 02/05/23 07:25 Sputum - Suctioned Gram Stain - Final 02/05/23 07:25 Sputum - Suctioned Sputum Culture - Final Progress Note: A&P Assessment and plan (1) Cardiac arrest with successful resuscitation: Status: Acute (2) ARDS (adult respiratory distress syndrome): Status: Acute (3) Polysubstance abuse: Status: Acute (4) Aspiration pneumonia: Status: Acute (5) Acute renal failure due to rhabdomyolysis: Status: Acute Plan Patient is a 32 Y M w/ epilepsy, polysubstance misuse, found unresponsive on 02/04, found to have rhabdomyolysis, c/b acute renal failure, acute hypoxic respiratory failure, intubated; ICU course c/b extubation 02/08, re-intubation 02/09, as well as hypoxic cardiac arrest 02/13 N: intubated, sedated w/ propofol gtt, fentanyl gtt; wean sedation daily for neurological exam as tolerated CV: cardiac arrest 02/13; echo 02/15 grossly unremarkable R: acute hypoxic respiratory failure, c/b ARDS, cardiac arrest; LPV protocol; wean ventilator daily as tolerated GI: no acute issues : acute renal failure c/b volume overload, on hemodialysis; last hemodialysis session 02/15, goal -4L H: leukocytosis, stable ID: c/f aspiration pneumonia; levofloxacin E: no acute issues P: polysubstance misuse Quality Stroke Does the patient have a stroke diagnosis?: No VTE Prior VTE?: No VTE Risk Level:: Medical - moderate - high VTE Device Contraindication: N/A - Device Ordered VTE Drug Contraindication: N/A - Med Ordered
[2023-02-16] MEDS: Lactulose 20 GM/30 ML SOLUTION 40 GM PO ×3 (08:06→19:18)
[2023-02-16] MEDS: Famotidine/PF 20 MG/2 ML VIAL IVPUSH (08:06)
[2023-02-16] MEDS: Chlorhexidine Gluc Oral Rinse 15 ML MOUTHWASH BUCCAL ×3 (08:06→19:17)
[2023-02-16] MEDS: Nystatin Cream 15 GM TUBE 1 APPL TOPICAL ×2 (08:06→19:17)
--- NOTE | 2023-02-16 09:02 | PC.NURSE ---
Plan for HD this am, CT of chest, Abd, and brain ordered, to be done after HD. MD aware
[2023-02-16 09:17] LABS: Venous Blood Gas Refer to POC result
[2023-02-16 09:19] LABS: VBG Base Excess -3.9 mmol/L; VBG HCO3 23 mmol/L (22-26); VBG pCO2 55 mmHg; VBG pH 7.23 (7.32-7.43); VBG pO2 124 mmHg
--- NOTE | 2023-02-16 10:16 | MHC.CM.PN ---
Pt continues on ventilatory support in ICU: plans for daily HD and continued vent weaning. No final plans/referrals made regarding d/c planning at this time. CM to follow.
[2023-02-16] MEDS: Acetaminophen 1,000 MG/100 ML PIGGYBACK 400 MG IV (10:45)
--- NOTE | 2023-02-16 13:01 | P.PNNP_ITS ---
Subjective Subjective Date of Service: 02/16/23 Interval history: no significant overnight events; Had HD this AM; D/W ICU Attending Physical Exam 2 Vital Signs: Vital Signs: Last Vital Signs Temp 100.4 F 02/16/23 12:00 Pulse 117 H 02/16/23 12:00 Resp 26 H 02/16/23 12:00 BP 107/54 L 02/16/23 12:00 Pulse Ox 95 02/16/23 12:00 O2 Del Method Mechanical Ventil ation 02/16/23 12:00 O2 Flow Rate 70 02/16/23 04:00 FiO2 75 02/16/23 12:00 BMI result Body Mass Index 39.6 Const: General: no acute distress Resp: Auscultation: diminished lung sounds Cardio: Rate: regular rate GI: Palpation (GI): Soft to palpation Neuro: Other: Sedated Objective Data Labs 02/16/23 04:54 02/16/23 04:54 Labs: Laboratory Results - last 24 hr 02/16/23 02/16/23 04:54 09:12 WBC 20.2 H RBC 2.82 L Hgb 8.3 L Hct 23.3 L MCV 82.6 MCH 29.4 MCHC 35.6 RDW 15.9 Plt Count 195 D MPV 13.0 H Absolute Nucleated RBC 0.280 H Nucleated RBC % (auto) 1.4 H Neutrophils % (Manual) 68 Band Neutrophils % 12 H Lymphocytes % (Manual) 7 L Monocytes % (Manual) 3 Eosinophils % (Manual) 2 Metamyelocytes % 2 Myelocytes % 4 Promyelocytes % 2 Abs Neuts (Manual) 16.2 H Lymphocytes # (Manual) 1.4 Monocytes # (Manual) 0.6 Eosinophils # (Manual) 0.4 Metamyelocytes # 0.4 Myelocytes # 0.8 Promyelocytes # 0.4 Nucleated RBCs 2 H Smudge Cells PRESENT Toxic Granulation PRESENT Toxic Vacuolation PRESENT Platelet Estimate NORMAL Large Platelets PRESENT Plt Morphology Comment NOTED RBC Morphology NOTED Polychromasia 1+ (0-2) Basophilic Stippling 1+ (0-2) Tear Drop Cells 2+ (3-5) VBG pH 7.23 L VBG pCO2 55 VBG pO2 124 VBG HCO3 23 VBG O2 Saturation 100.0 VBG Base Excess -3.9 Sodium 139 Potassium 4.6 Chloride 98 Carbon Dioxide 18 L Anion Gap 28 H BUN 70 H Creatinine 5.51 H* Estim Creat Clear Calc 25.3 Estimated GFR 12 Random Glucose 118 H Calcium 8.4 D Magnesium 2.6 Ammonia 61 H Microbiology Microbiology Results: Microbiology 02/12/23 14:41 Sputum - Suctioned Gram Stain - Final 02/12/23 14:41 Sputum - Suctioned Sputum Culture - Final 02/04/23 16:33 Blood - Venous Blood Culture - Final No growth after 5 days. 02/04/23 15:32 Blood - Venous Blood Culture - Final No growth after 5 days. 02/05/23 07:25 Sputum - Suctioned Gram Stain - Final 02/05/23 07:25 Sputum - Suctioned Sputum Culture - Final Procedures Date of Service Date of Service: 02/16/23 Assessment & Plan Assessment and plan (1) Acute renal failure: Status: Acute Plan HAILY due to tubular injury Needed emergent HD Dialyzed again this AM Still hypervolemic Likely will need HD again tomorrow C/W rest of current management Labs AM; Shall closely F/U Progress Note: Quality Stroke Does the patient have a stroke diagnosis?: No
--- NOTE | 2023-02-16 20:00 | PC.NURSE ---
Addendum entered by Dina Dong RN 02/17/23 01:59: Extremity elevated on pillows and warm compresses applied. Original Note: Upon initial assessment at 1999- entire RUE noted to be significantly more swollen/tense/discolored in comparison to LUE, +radial pulse palpated. ECHO Taylor notified and new order for ultrasound to r/o DVT- PA aware of results of extensive SVT to arm. BP cuff and PIV removed from right arm, signage placed at bedside. TLC placed to L IJ for additional IV access d/t restricted extremity. Placement confirmed by pCXR.
--- NOTE | 2023-02-16 20:00 | PC.NURSE ---
Upon initial assessment at
[2023-02-16] MEDS: Metoprolol Tartrate 5 MG/5 ML VIAL IVPUSH (21:20)
[2023-02-16 22:16] LABS: Hematocrit 22.4 % (42.0-52.0); Hemoglobin 8.1 g/dl (14.0-18.0); Mean Corpuscular HGB Conc 36.2 g/dl (31.0-36.0); Mean Corpuscular Hemoglobin 29.9 pg (27.0-33.0); Mean Corpuscular Volume 82.7 fL (80.0-98.0); Mean Platelet Volume 11.7 fL (9.4-12.4); Platelet Count 236 X10*3/uL (160-400); Red Blood Count 2.71 X10*6/uL (4.60-5.80); White Blood Count 19.7 X10*3/uL (4.8-10.8)
[2023-02-16 22:18] LABS: NRBC Pct Auto 1.7 /100WBC (0.0-0.2)
[2023-02-16 22:33] LABS: Alanine Aminotransferase 112 U/L (0-40); Albumin Level 3.5 g/dL (3.5-5.0); Alkaline Phosphatase 108 U/L (39-117); Anion Gap 25 (12-20); Aspartate Amino Transferase 99 U/L (5-37); Bilirubin Total 0.9 mg/dL (0.0-1.0); Blood Urea Nitrogen 54 mg/dL (9-16); Calcium 8.4 mg/dL (8.4-10.2); Carbon Dioxide 20 mmol/L (22-29); Chloride 99 mmol/L (96-108); Estimated Glomerular Filt Rate 14; Glucose Random 117 mg/dL (60-115); Potassium 4.2 mmol/L (3.3-5.1); Sodium 140 mmol/L (135-145)
[2023-02-16 22:45] LABS: Band Neutrophils Percent 15 % (3-5); Eosinophils Absolute Manual 0.4 X10*3/uL (0.0-0.4); Eosinophils Percent Manual 2 % (0-4); Lymphocytes Percent Manual 5 % (20-40); Metamyelocytes Absolute 0.4 X10*3/uL; Metamyelocytes Percent 2 %; Monocytes Absolute Manual 0.6 X10*3/uL (0.1-1.2); Monocytes Percent Manual 3 % (2-11); Myelocytes Absolute 0.4 X10*/uL; Myelocytes Percent 2 %; Neutrophils Absolute Manual 16.7 X10*3/uL (2.0-8.3); Neutrophils Percent Manual 70 % (45-73); Nucleated Red Blood Cells 2 /100WBC (0-0); Promyelocytes Absolute 0.2 X10*3/uL; Promyelocytes Percent 1 %
[2023-02-16 22:46] LABS: Basophilic Stippling 1+ (0-2) /OIF; Giant Platelet PRESENT; Large Platelet PRESENT; Macrocytosis 1+ (5-14) /OIF; Platelet Estimate NORMAL (NORMAL); Platelet Morphology Comment NOTED; Polychromasia 1+ (0-2) /OIF; RBC Morphology NOTED; Smudge Cells PRESENT; Tear Drop Cells 1+ (0-2) /OIF; Toxic Granulation PRESENT; Toxic Vacuolation PRESENT
[2023-02-16 22:48] LABS: OBS Int Ctl Valid YES; OBS1 NEGATIVE (NEGATIVE)
[2023-02-16 22:55] LABS: INTERNATIONAL NORM RATIO 1.5 (0.9-1.1)
[2023-02-16 22:57] LABS: Partial Thromboplastin Time 24.9 SEC (26.0-36.4)
--- NOTE | 2023-02-16 23:00 | W.PM.CCHP ---
Procedures Date of Service Date of Service: 02/16/23 Central Line Placement Left IJ: Central Line Comments: patient has poor IV access, there is a hemodialysis catheter with a pigtail on the right IJ area. on exam he seems to have significant edema, warmness to touch and slight erythema of the right upper extremity, concerning for DVT, ultrasound ordered. patient is in need of a central line for multiple lab draws, medication administration and further care, due to medical necessity, including the possibility of IV heparin a left IJ CVL was placed without complications. Patient required further sedation with 100 mg of propofol and 100 mg of IV fentanyl. Consent for Procedure: Emergent-no informed consent obtained Time out performed: Yes Sterile Technique Used: Yes Patient placed on monitor/pulse ox: Yes MD prep: mask, gown and gloves Central line prep: Chlorhexidine scrub Ultrasound used for placement: Yes Central line lumen inserted: triple (20 cm ) Post procedure: sutured in place, good blood return, all ports aspirated, flushed, capped and sterile dressing applied Post procedure x-ray: tip of catheter in good position and no pneumothorax seen ( Patient is known to have a small apical pneumothorax on the left side noted on a chest CT from earlier today) Patient tolerated procedure: well and no complications Complications: none
[2023-02-16] MEDS: Pantoprazole Sodium 40 MG/10 ML VIAL 80 MG IVPUSH (23:16)
[2023-02-16] MEDS: Heparin Sodium,Porcine 5,000 UNIT/ML VIAL 5000 UNIT SUBCUT (23:17)
[2023-02-17] VITALS (44 sets, daily range): BP systolic 70–145; BP diastolic 28–89; PULSE 113–133; RESP 24–36; TEMP 34.9–39.5; O2SAT 88–97; BMI 38.7
[2023-02-17] MEDS: propofoL 1,000 MG/100 ML VIAL 40.35 MG IVCONT ×9 (00:03→18:37)
[2023-02-17] MEDS: fentaNYL citrate/NS 1,000 MCG/100 ML PLAST..BAG 20 MCG IVCONT ×5 (04:19→22:54)
[2023-02-17] MEDS: levETIRAcetam in NaCl (iso-os) 1,000 MG/100 ML PIGGYBACK 400 MG IV (04:19)
[2023-02-17] MEDS: Heparin Sodium,Porcine 5,000 UNIT/ML VIAL 5000 UNIT SUBCUT ×3 (04:39→21:08)
[2023-02-17] MEDS: Albuterol/Iprat 2.5/0.5MG 3 ML AMPUL.NEB INHALE (04:52)
[2023-02-17 05:20] LABS: Hematocrit 23.8 % (42.0-52.0); Hemoglobin 8.2 g/dl (14.0-18.0); Mean Corpuscular HGB Conc 34.5 g/dl (31.0-36.0); Mean Corpuscular Hemoglobin 29.1 pg (27.0-33.0); Mean Corpuscular Volume 84.4 fL (80.0-98.0); Mean Platelet Volume 11.6 fL (9.4-12.4); Platelet Count 266 X10*3/uL (160-400); Red Blood Count 2.82 X10*6/uL (4.60-5.80); Red Cell Distribution Width 16.3 % (11.0-16.0); White Blood Count 22.9 X10*3/uL (4.8-10.8)
[2023-02-17 05:22] LABS: NRBC Pct Auto 1.1 /100WBC (0.0-0.2)
[2023-02-17 05:39] LABS: Anion Gap 27 (12-20); Blood Urea Nitrogen 69 mg/dL (9-16); Calcium 8.5 mg/dL (8.4-10.2); Carbon Dioxide 19 mmol/L (22-29); Chloride 98 mmol/L (96-108); Creatinine Clr Calc Pharmacy 24.7; Estimated Glomerular Filt Rate 12; Glucose Random 131 mg/dL (60-115); Potassium 4.5 mmol/L (3.3-5.1); Sodium 139 mmol/L (135-145)
[2023-02-17 05:50] LABS: Band Neutrophils Percent 15 % (3-5); Basophilic Stippling 1+ (0-2) /OIF; Eosinophils Absolute Manual 0.9 X10*3/uL (0.0-0.4); Eosinophils Percent Manual 4 % (0-4); Large Platelet PRESENT; Lymphocytes Absolute Manual 1.4 X10*3/uL (1.2-4.9); Lymphocytes Percent Manual 6 % (20-40); Macrocytosis 1+ (5-14) /OIF; Metamyelocytes Absolute 0.5 X10*3/uL; Metamyelocytes Percent 2 %; Monocytes Absolute Manual 0.2 X10*3/uL (0.1-1.2); Monocytes Percent Manual 1 % (2-11); Myelocytes Absolute 0.5 X10*/uL; Myelocytes Percent 2 %; Neutrophils Absolute Manual 19.5 X10*3/uL (2.0-8.3); Neutrophils Percent Manual 70 % (45-73); Nucleated Red Blood Cells 1 /100WBC (0-0); Platelet Estimate NORMAL (NORMAL); Platelet Morphology Comment NOTED; Polychromasia 1+ (0-2) /OIF; RBC Morphology NOTED; Tear Drop Cells 1+ (0-2) /OIF
[2023-02-17 05:51] LABS: Smudge Cells PRESENT; Toxic Vacuolation PRESENT
[2023-02-17] MEDS: Pantoprazole Sodium 40 MG/10 ML VIAL IVPUSH (06:17)
[2023-02-17] MEDS: Lactulose 20 GM/30 ML SOLUTION 40 GM PO ×2 (07:18→15:20)
[2023-02-17] MEDS: Chlorhexidine Gluc Oral Rinse 15 ML MOUTHWASH BUCCAL ×3 (07:18→20:29)
[2023-02-17] MEDS: Nystatin Cream 15 GM TUBE 1 APPL TOPICAL ×2 (07:18→20:29)
--- NOTE | 2023-02-17 07:29 | P.PNCC_ITS ---
Subjective Subjective Date of Service: 02/17/23 Interval History: R UE found to be edematous, US demonstrating superficial thrombophlebitis; no significant overnight events Critical Care Time (minutes): 90 Physical Exam 2 Vital Signs: Vital Signs: Last Vital Signs Temp 98.8 F 02/17/23 06:00 Pulse 115 H 02/17/23 07:00 Resp 27 H 02/17/23 07:00 BP 120/59 L 02/17/23 07:00 Pulse Ox 92 02/17/23 07:00 O2 Del Method Mechanical Ventil ation 02/17/23 07:00 O2 Flow Rate 70 02/16/23 04:00 FiO2 100 02/17/23 07:00 BMI result Body Mass Index 38.7 Const: Other: intubated, sedated; no acute distress HEENT: Head: Yes normal to inspection, Yes normocephalic and Yes atraumatic Eyes: General: appearance normal, both eyes and all related structures Neck: Neck: Yes normal visual inspection and Yes supple Chest: Chest palpation & inspection: normal inspection of the chest Resp: Other: appreciable breath sounds throughout; diffuse rhonchi and rales, L greater than R Cardio: Rate: tachycardic Rhythm: regular rhythm GI: Other: soft, compressible; no appreciable Inspection: Yes normal to inspection and No Abdominal wall edema P alpation (GI): Soft to palpation, not firm, nontender, no guarding and not rigid Skin: Other: petechial rash bilateral flank Extrem: Other: anasarca, R UE greater than L UE General: Yes normal to inspection and Yes capillary refill normal Psych: Other: unable to assess Objective Data Labs 02/17/23 04:43 02/17/23 04:43 Labs: Laboratory Results - last 24 hr 02/16/23 02/16/23 02/16/23 09:12 22:09 22:09 WBC 19.7 H RBC 2.71 L Hgb 8.1 L Hct 22.4 L MCV 82.7 MCH 29.9 MCHC 36.2 H RDW 16.0 Plt Count 236 MPV 11.7 Immature Gran % (Auto) Cancelled Neut % (Auto) Cancelled Lymph % (Auto) Cancelled [place] % (Auto) Cancelled Eos % (Auto) Cancelled Baso % (Auto) Cancelled Lymph # (Auto) Cancelled [place] # (Auto) Cancelled Eos # (Auto) Cancelled Baso # (Auto) Cancelled Abs Immat Gran (auto) Cancelled Absolute Neuts (auto) Cancelled Absolute Nucleated RBC 0.330 H Nucleated RBC % (auto) 1.7 H Neutrophils % (Manual) 70 Band Neutrophils % 15 H Lymphocytes % (Manual) 5 L Monocytes % (Manual) 3 Eosinophils % (Manual) 2 Metamyelocytes % 2 Myelocytes % 2 Promyelocytes % 1 Abs Neuts (Manual) 16.7 H Lymphocytes # (Manual) 1.0 L Monocytes # (Manual) 0.6 Eosinophils # (Manual) 0.4 Metamyelocytes # 0.4 Myelocytes # 0.4 Promyelocytes # 0.2 Nucleated RBCs 2 H Smudge Cells PRESENT Toxic Granulation PRESENT Toxic Vacuolation PRESENT Platelet Estimate NORMAL Large Platelets PRESENT Giant Platelets PRESENT Plt Morphology Comment NOTED RBC Morphology NOTED Polychromasia 1+ (0-2) Basophilic Stippling 1+ (0-2) Macrocytosis 1+ (5-14) Tear Drop Cells 1+ (0-2) PT 18.0 H D Cancelled INR 1.5 H APTT aPTT Heparin Protocol Hold Blue Top VBG pH 7.23 L VBG pCO2 55 VBG pO2 124 VBG HCO3 23 VBG O2 Saturation 100.0 VBG Base Excess -3.9 Sodium Potassium Chloride Carbon Dioxide Anion Gap BUN Creatinine Estim Creat Clear Calc Estimated GFR Random Glucose Calcium Total Bilirubin AST ALT Alkaline Phosphatase Total Protein Albumin Stool Occult Blood 02/16/23 02/16/23 02/17/23 22:09 22:19 04:43 WBC 22.9 H RBC 2.82 L Hgb 8.2 L Hct 23.8 L MCV 84.4 MCH 29.1 MCHC 34.5 RDW 16.3 H Plt Count 266 MPV 11.6 Immature Gran % (Auto) Cancelled Neut % (Auto) Cancelled Lymph % (Auto) Cancelled [place] % (Auto) Cancelled Eos % (Auto) Cancelled Baso % (Auto) Cancelled Lymph # (Auto) Cancelled [place] # (Auto) Cancelled Eos # (Auto) Cancelled Baso # (Auto) Cancelled Abs Immat Gran (auto) Cancelled Absolute Neuts (auto) Cancelled Absolute Nucleated RBC 0.250 H Nucleated RBC % (auto) 1.1 H Neutrophils % (Manual) 70 Band Neutrophils % 15 H Lymphocytes % (Manual) 6 L Monocytes % (Manual) 1 L Eosinophils % (Manual) 4 Metamyelocytes % 2 Myelocytes % 2 Promyelocytes % Abs Neuts (Manual) 19.5 H Lymphocytes # (Manual) 1.4 Monocytes # (Manual) 0.2 Eosinophils # (Manual) 0.9 H Metamyelocytes # 0.5 Myelocytes # 0.5 Promyelocytes # Nucleated RBCs 1 H Smudge Cells PRESENT Toxic Granulation Toxic Vacuolation PRESENT Platelet Estimate NORMAL Large Platelets PRESENT Giant Platelets Plt Morphology Comment NOTED RBC Morphology NOTED Polychromasia 1+ (0-2) Basophilic Stippling 1+ (0-2) Macrocytosis 1+ (5-14) Tear Drop Cells 1+ (0-2) PT INR Cancelled APTT 24.9 L aPTT Heparin Protocol Cancelled Hold Blue Top SEE NOTE VBG pH VBG pCO2 VBG pO2 VBG HCO3 VBG O2 Saturation VBG Base Excess Sodium 140 139 Potassium 4.2 4.5 Chloride 99 98 Carbon Dioxide 20 L 19 L Anion Gap 25 H 27 H BUN 54 H 69 H Creatinine 4.97 H* 5.56 H* Estim Creat Clear Calc 28.0 24.7 Estimated GFR 14 12 Random Glucose 117 H 131 H Calcium 8.4 8.5 Total Bilirubin 0.9 AST 99 H ALT 112 H Alkaline Phosphatase 108 Total Protein 8.0 Albumin 3.5 Stool Occult Blood NEGATIVE Microbiology Microbiology Results: Microbiology 02/12/23 14:41 Sputum - Suctioned Gram Stain - Final 02/12/23 14:41 Sputum - Suctioned Sputum Culture - Final 02/04/23 16:33 Blood - Venous Blood Culture - Final No growth after 5 days. 02/04/23 15:32 Blood - Venous Blood Culture - Final No growth after 5 days. 02/05/23 07:25 Sputum - Suctioned Gram Stain - Final 02/05/23 07:25 Sputum - Suctioned Sputum Culture - Final Progress Note: A&P Assessment and plan (1) Cardiac arrest with successful resuscitation: Status: Acute (2) ARDS (adult respiratory distress syndrome): Status: Acute (3) Aspiration pneumonia: Status: Acute (4) Acute renal failure due to rhabdomyolysis: Status: Acute (5) Seizure: Status: Acute Plan Patient is a 32 Y M w/ epilepsy, polysubstance misuse, found unresponsive on 02/04, found to have rhabdomyolysis, c/b acute renal failure, volume overload, acute hypoxic respiratory failure, intubated; ICU course c/b extubation 02/08, re-intubation 02/09, as well as hypoxic cardiac arrest 02/13 N: intubated, sedated w/ propofol gtt, fentanyl gtt; wean sedation daily for neurological exam as tolerated CV: cardiac arrest 02/13; echo 02/15 grossly unremarkable R: acute hypoxic respiratory failure, c/b ARDS, cardiac arrest; CT C 02/16 demonstrating small L pneumothorax; LPV protocol; wean ventilator, especially PEEP, daily as tolerated GI: no acute issues : acute renal failure c/b volume overload, on hemodialysis; last hemodialysis session 02/16, goal -4L H: leukocytosis, stable ID: c/f aspiration pneumonia; levofloxacin; to consider re-culture and broadening antibiotics E: no acute issues P: polysubstance misuse Quality Stroke Does the patient have a stroke diagnosis?: No VTE Prior VTE?: No VTE Risk Level:: Medical - moderate - high VTE Device Contraindication: N/A - Device Ordered VTE Drug Contraindication: Treatment Not Tolerated
[2023-02-17 08:48] LABS: VBG Base Excess -5.4 mmol/L; VBG HCO3 21 mmol/L (22-26); VBG pCO2 49 mmHg; VBG pH 7.24 (7.32-7.43); VBG pO2 62 mmHg
--- NOTE | 2023-02-17 09:22 | PM.PNNEP ---
Subjective Subjective Date of Service: 02/18/23 Interval history: Events noted. Remains intubated. Still anuric. Physical Exam Vital Signs: Vital Signs: Last Vital Signs Temp 99.9 F 02/17/23 09:00 Pulse 123 H 02/17/23 09:00 Resp 32 H 02/17/23 09:00 BP 123/65 02/17/23 09:00 Pulse Ox 90 L 02/17/23 09:00 O2 Del Method Mechanical Ventil ation 02/17/23 09:00 O2 Flow Rate 70 02/16/23 04:00 FiO2 100 02/17/23 09:04 BMI result Body Mass Index 38.7 Ill-appearing. Intubated. Lungs was scattered rhonchi. Generalized edema. Objective Data Labs 02/17/23 15:39 02/17/23 15:39 Labs: Laboratory Results - last 24 hr 02/16/23 02/16/23 02/16/23 22:09 22:09 22:09 WBC 19.7 H RBC 2.71 L Hgb 8.1 L Hct 22.4 L MCV 82.7 MCH 29.9 MCHC 36.2 H RDW 16.0 Plt Count 236 MPV 11.7 Immature Gran % (Auto) Cancelled Neut % (Auto) Cancelled Lymph % (Auto) Cancelled [place] % (Auto) Cancelled Eos % (Auto) Cancelled Baso % (Auto) Cancelled Lymph # (Auto) Cancelled [place] # (Auto) Cancelled Eos # (Auto) Cancelled Baso # (Auto) Cancelled Abs Immat Gran (auto) Cancelled Absolute Neuts (auto) Cancelled Absolute Nucleated RBC 0.330 H Nucleated RBC % (auto) 1.7 H Neutrophils % (Manual) 70 Band Neutrophils % 15 H Lymphocytes % (Manual) 5 L Monocytes % (Manual) 3 Eosinophils % (Manual) 2 Metamyelocytes % 2 Myelocytes % 2 Promyelocytes % 1 Abs Neuts (Manual) 16.7 H Lymphocytes # (Manual) 1.0 L Monocytes # (Manual) 0.6 Eosinophils # (Manual) 0.4 Metamyelocytes # 0.4 Myelocytes # 0.4 Promyelocytes # 0.2 Nucleated RBCs 2 H Smudge Cells PRESENT Toxic Granulation PRESENT Toxic Vacuolation PRESENT Platelet Estimate NORMAL Large Platelets PRESENT Giant Platelets PRESENT Plt Morphology Comment NOTED RBC Morphology NOTED Polychromasia 1+ (0-2) Basophilic Stippling 1+ (0-2) Macrocytosis 1+ (5-14) Tear Drop Cells 1+ (0-2) PT 18.0 H D Cancelled INR 1.5 H Cancelled APTT 24.9 L aPTT Heparin Protocol Cancelled Hold Blue Top SEE NOTE VBG pH VBG pCO2 VBG pO2 VBG HCO3 VBG O2 Saturation VBG Base Excess Sodium 140 Potassium 4.2 Chloride 99 Carbon Dioxide 20 L Anion Gap 25 H BUN 54 H Creatinine 4.97 H* Estim Creat Clear Calc 28.0 Estimated GFR 14 Random Glucose 117 H Calcium 8.4 Total Bilirubin 0.9 AST 99 H ALT 112 H Alkaline Phosphatase 108 Total Protein 8.0 Albumin 3.5 Stool Occult Blood 02/16/23 02/17/23 02/17/23 22:19 04:43 08:42 WBC 22.9 H RBC 2.82 L Hgb 8.2 L Hct 23.8 L MCV 84.4 MCH 29.1 MCHC 34.5 RDW 16.3 H Plt Count 266 MPV 11.6 Immature Gran % (Auto) Cancelled Neut % (Auto) Cancelled Lymph % (Auto) Cancelled [place] % (Auto) Cancelled Eos % (Auto) Cancelled Baso % (Auto) Cancelled Lymph # (Auto) Cancelled [place] # (Auto) Cancelled Eos # (Auto) Cancelled Baso # (Auto) Cancelled Abs Immat Gran (auto) Cancelled Absolute Neuts (auto) Cancelled Absolute Nucleated RBC 0.250 H Nucleated RBC % (auto) 1.1 H Neutrophils % (Manual) 70 Band Neutrophils % 15 H Lymphocytes % (Manual) 6 L Monocytes % (Manual) 1 L Eosinophils % (Manual) 4 Metamyelocytes % 2 Myelocytes % 2 Promyelocytes % Abs Neuts (Manual) 19.5 H Lymphocytes # (Manual) 1.4 Monocytes # (Manual) 0.2 Eosinophils # (Manual) 0.9 H Metamyelocytes # 0.5 Myelocytes # 0.5 Promyelocytes # Nucleated RBCs 1 H Smudge Cells PRESENT Toxic Granulation Toxic Vacuolation PRESENT Platelet Estimate NORMAL Large Platelets PRESENT Giant Platelets Plt Morphology Comment NOTED RBC Morphology NOTED Polychromasia 1+ (0-2) Basophilic Stippling 1+ (0-2) Macrocytosis 1+ (5-14) Tear Drop Cells 1+ (0-2) PT INR APTT aPTT Heparin Protocol Hold Blue Top VBG pH 7.24 L VBG pCO2 49 VBG pO2 62 VBG HCO3 21 L VBG O2 Saturation 84.0 VBG Base Excess -5.4 Sodium 139 Potassium 4.5 Chloride 98 Carbon Dioxide 19 L Anion Gap 27 H BUN 69 H Creatinine 5.56 H* Estim Creat Clear Calc 24.7 Estimated GFR 12 Random Glucose 131 H Calcium 8.5 Total Bilirubin AST ALT Alkaline Phosphatase Total Protein Albumin Stool Occult Blood NEGATIVE Microbiology Microbiology Results: Microbiology 02/12/23 14:41 Sputum - Suctioned Gram Stain - Final 02/12/23 14:41 Sputum - Suctioned Sputum Culture - Final 02/04/23 16:33 Blood - Venous Blood Culture - Final No growth after 5 days. 02/04/23 15:32 Blood - Venous Blood Culture - Final No growth after 5 days. 02/05/23 07:25 Sputum - Suctioned Gram Stain - Final 02/05/23 07:25 Sputum - Suctioned Sputum Culture - Final Procedures Date of Service Date of Service: 02/18/23 Assessment & Plan Assessment and plan (1) Acute renal failure: Status: Acute Plan HAILY due to tubular injury/ ischemic ATN. Needed emergent HD Remains oliguric. Still hypervolemic We will dialyze again today and remove fluid as tolerated. He would likely need daily dialysis as supportive measure until renal function recovers. Concur with rest of the management and will follow along with the team. Thank you Time Spent With Patient Time: Total time managing care of this patient today ____ minutes. Progress Note: Quality Stroke Does the patient have a stroke diagnosis?: No
[2023-02-17 09:24] LABS: Triglycerides 767 mg/dL (<150)
--- NOTE | 2023-02-17 09:47 | MHC.CLN ---
F/U DISCUSSED AT ROUNDS WITH REVIEWED LABS PT RECEIVING PROMOTE AT 30ML/HR WITH 120ML FWF Q 4 HRS PROVIDES 720KCALS (1785KCALS WITH SEDATION; 24KCALS/KG BASED ON IBW), 45G PROTEIN, 1324ML TOTAL WATER FROM FORMULA AND FLUSHES (18ML/KG BASED ON IBW) TOLERATING WELL PER NSG MONITOR TOLERANCE, RESIDUALS AND LYTES
[2023-02-17 09:57] LABS: VBG Base Excess -5.6 mmol/L; VBG HCO3 21 mmol/L (22-26); VBG pCO2 47 mmHg; VBG pH 7.25 (7.32-7.43); VBG pO2 42 mmHg
--- NOTE | 2023-02-17 10:20 | HE.PHANOTE ---
RE: rufino Patient to be potentially dialyzed daily; will continue to follow up. Giving load dose of 2000mg after dialysis today. Will monitor daily.
[2023-02-17 10:43] LABS: Venous Blood Gas Refer to POC result
[2023-02-17 10:44] LABS: Venous Blood Gas Refer to POC result
[2023-02-17] MEDS: cefEPime HCl 1 GM in 0.9 % Sodium Chloride 50 ML IV ×2 (11:26→18:40)
[2023-02-17] MEDS: Norepinephrine Bitartrate/D5W 8 MG/250 ML PLAST..BAG 11.47 MG IV (12:38)
--- NOTE | 2023-02-17 13:05 | HO.WOUND ---
Wound Consult: Initial 32yr old male admitted to [facility] on?02/04/23 19:11 - See progress notes and H&P for detailed history. Per critical care provider note history includes epilepsy, polysubstance misuse, found unresponsive on 02/04, found to have rhabdomyolysis, c/b acute renal failure, volume overload, acute hypoxic respiratory failure, intubated; ICU course c/b extubation 02/08, re-intubation 02/09, as well as hypoxic cardiac arrest 02/13. Wound consult placed for Rash on back and intergluteal breakdown. Intergluteal Etiology: MASD (Moisture Associated Skin Breakdown ) Intertrigo Measurements: approximately 5cm x 0.2cm x 0.2cm Wound Bed: linear tissue loss at vane of skin fold (Intertrigo), consistent with Moisture trapping within fold. Mirrored edges and purple pigmentation consistent with chronic moisture. Drainage / Odor: None noted Edges: ? Linear and attached Briana wound: ?No Induration, Fluctuance or Warmth noted Pain: Intubated Goals of Treatment: ? Barrier cream to protect from moisture and friction Rash to back intact and flat - appears as purpura and chart review reveals thrombocytopenia over the past week. No topical interventions needed at this time. Recommendations: 1. Turn and Reposition every 2 hours and as needed for patient comfort - Please use wedges when able to off load pressure. 2. Off Load all bony prominences with use of pillows and heel boots if needed.? Apply Preventative foams where needed. ? 3. Monitor for incontinence and moisture control, use barrier creams when needed for prevention and treatment. 4. Provide adequate and supplemental nutrition -Nutrition Following. 5. Continue low air loss mattress. 6. Intergluteal - Off Load Pressure with wedges - Cleanse with PH balance spray or wipes, pat dry. ?Apply thin layer of Triad to wound bed - only pat and dab no scrub and rub when soiling occurs. Reapply thin layer PRN after each episode of incontinence. . Re-consult wound care Nurse for wound deterioration or wound changes.
[2023-02-17 15:23] LABS: VBG Base Excess -0.9 mmol/L; VBG HCO3 25 mmol/L (22-26); VBG pCO2 49 mmHg; VBG pH 7.31 (7.32-7.43); VBG pO2 40 mmHg
[2023-02-17 15:46] LABS: Hematocrit 26.6 % (42.0-52.0); Hemoglobin 9.5 g/dl (14.0-18.0); Mean Corpuscular HGB Conc 35.7 g/dl (31.0-36.0); Mean Corpuscular Hemoglobin 29.8 pg (27.0-33.0); Mean Corpuscular Volume 83.4 fL (80.0-98.0); Platelet Count 312 X10*3/uL (160-400); Red Blood Count 3.19 X10*6/uL (4.60-5.80); Red Cell Distribution Width 17.2 % (11.0-16.0)
[2023-02-17 15:50] LABS: NRBC Pct Auto 1.5 /100WBC (0.0-0.2)
[2023-02-17 15:52] LABS: White Blood Count 35.1 X10*3/uL (4.8-10.8)
[2023-02-17 15:56] LABS: Lactic Acid 1.4 mmol/L (0.5-2.0)
--- NOTE | 2023-02-17 16:03 | MHC.CM.PN ---
PT REMAINS ON VENTILATORY SUPPORT IN ICU. NO HCP ON FILE. CM WILL FOLLOW FOR POSSIBLE NEED FOR GUARDIANSHIP IF PT IS UNABLE TO COMPLETE A HCP .
[2023-02-17 16:08] LABS: Band Neutrophils Percent 2 % (3-5); Basophils Abs Manual 0.4 X10*3/uL (0.0-0.2); Basophils Percent Manual 1 % (0-2); Eosinophils Absolute Manual 0.4 X10*3/uL (0.0-0.4); Eosinophils Percent Manual 1 % (0-4); Lymphocytes Absolute Manual 4.2 X10*3/uL (1.2-4.9); Lymphocytes Percent Manual 12 % (20-40); Monocytes Absolute Manual 1.8 X10*3/uL (0.1-1.2); Monocytes Percent Manual 5 % (2-11); Neutrophils Absolute Manual 28.1 X10*3/uL (2.0-8.3); Neutrophils Percent Manual 78 % (45-73); Nucleated Red Blood Cells 1 /100WBC (0-0); Promyelocytes Absolute 0.4 X10*3/uL; Promyelocytes Percent 1 %
[2023-02-17 16:11] LABS: Macrocytosis 1+ (5-14) /OIF; Microcytosis 2+ (15-30) /OIF; RBC Morphology NOTED
[2023-02-17 16:12] LABS: Basophilic Stippling 1+ (0-2) /OIF; Hypochromasia 1+ (5-14) /OIF; Platelet Estimate NORMAL (NORMAL); Platelet Morphology Comment NORMAL; Schistocytes 1+ (0-2) /OIF; Smudge Cells PRESENT
[2023-02-17 16:33] LABS: Venous Blood Gas Refer to POC result
[2023-02-17] MEDS: Albumin Human 25 % 100 ML IV ×2 (16:36→17:40)
[2023-02-17] MEDS: metroNIDAZOLE/NS 500 MG/100 ML PIGGYBACK 100 MG IV (16:38)
[2023-02-17] MEDS: vancomycin/NS 2,000 MG/500 ML PLAST..BAG 250 MG IV (17:13)
[2023-02-17] MEDS: levETIRAcetam Oral Soln 500 MG/5 ML 1000 MG NG-TUBE (17:15)
[2023-02-17 17:36] LABS: Alanine Aminotransferase 107 U/L (0-40); Albumin Level 4.1 g/dL (3.5-5.0); Alkaline Phosphatase 123 U/L (39-117); Anion Gap 25 (12-20); Aspartate Amino Transferase 76 U/L (5-37); Bilirubin Total 1.1 mg/dL (0.0-1.0); Blood Urea Nitrogen 37 mg/dL (9-16); Calcium 9.6 mg/dL (8.4-10.2); Carbon Dioxide 21 mmol/L (22-29); Chloride 94 mmol/L (96-108); Glucose Random 114 mg/dL (60-115); Magnesium 2.5 mg/dL (1.6-2.6); Potassium 4.4 mmol/L (3.3-5.1); Sodium 136 mmol/L (135-145); Total Protein 9.3 g/dL (6.5-8.0)
[2023-02-17 17:40] LABS: Creatinine Clr Calc Pharmacy 33.6; Estimated Glomerular Filt Rate 17
[2023-02-17 17:44] LABS: Lipase 830 U/L (8-78)
[2023-02-17 19:39] LABS: Glucose, Whole Blood 125 mg/dL (60-115)
[2023-02-17] MEDS: Midazolam HCl/NS 50 MG/50 ML PLAST..BAG IVCONT (19:41)
[2023-02-17 20:16] LABS: Appearance Urine Cloudy; Color Urine Dark Yellow; Glucose Urine UA Negative (Negative); Leukocyte Esterase Urine Moderate (2+) (Negative); Nitrite Urine Negative (Negative); PH 5.5 (5.0-9.0); UMIC TRIGGER UA YES; Urine Blood Large (3+) (Negative); Urine Ketones Negative (Negative); Urine Protein 300 (3+) mg/dL (Neg-Trace)
[2023-02-17] MEDS: Insulin Regular/NS 100 UNIT/100 ML PLAST..BAG IVCONT (20:29)
[2023-02-17 20:48] LABS: Bacteria Urine None Seen (None Seen); RBC Urine >20 /HPF (0-2); Squamous Epithelial Cell Urine 0-2 /HPF (0-2)
[2023-02-17 21:14] LABS: Glucose, Whole Blood 121 mg/dL (60-115)
[2023-02-17 22:13] LABS: Glucose, Whole Blood 135 mg/dL (60-115)
[2023-02-17 22:57] LABS: Glucose, Whole Blood 146 mg/dL (60-115)
[2023-02-17 23:10] LABS: Glucose, Whole Blood 142 mg/dL (60-115)
[2023-02-17 23:57] LABS: Glucose, Whole Blood 132 mg/dL (60-115)
[2023-02-18] VITALS (7 sets, daily range): BP systolic 114–136; BP diastolic 54–71; PULSE 129–131; RESP 25–29; TEMP 37.8–38.4; O2SAT 88–90; BMI 36.9
[2023-02-18] MEDS: metroNIDAZOLE/NS 500 MG/100 ML PIGGYBACK 100 MG IV (00:13)
[2023-02-18 01:02] LABS: Glucose, Whole Blood 120 mg/dL (60-115)
[2023-02-18 01:56] LABS: Glucose, Whole Blood 105 mg/dL (60-115)
[2023-02-18] MEDS: cefEPime HCl 1 GM in 0.9 % Sodium Chloride 50 ML IV (02:56)
[2023-02-18 03:04] LABS: Glucose, Whole Blood 117 mg/dL (60-115)
[2023-02-18] MEDS: fentaNYL citrate/NS 1,000 MCG/100 ML PLAST..BAG 20 MCG IVCONT (03:56)
[2023-02-18 03:58] LABS: Glucose, Whole Blood 116 mg/dL (60-115)
[2023-02-18 05:07] LABS: Glucose, Whole Blood 89 mg/dL (60-115)
--- NOTE | 2023-02-18 05:11 | PM.CCN ---
Critical Care Event Note Summary Date of Service: 02/18/23 Code activated: Yes Narrative: This case had a high probability of a clinically significant, sudden, or life threatening deterioration of this patient's condition which required my full and direct attention, intervention and personal management. Critical Care Time (minutes): 60 Comment: At 04:30 I was alerted by nursing personnel that the patient suddenly became hypoxic with O2 sat in the 70s, then 60s with the current vent settings of PC, 450, 22, 8; 100%. I immediately asked for patient to be bagged by respiratory therapies but this was impossible as that was a lot of resistance in the bag not able to push air in. Subsequently, the patient developed bradycardia and asystole. CPR was started immediately by me, code was started, 1st epinephrine was administered 04:38, subsequently multiple rounds of CPR and a total of 6 doses of epinephrine, 3 amps of bicarb and 2 amps of sodium chloride were given, blood sugar was above 90. During the code, it was eminent that I had to reintubate this patient, the OG tube and previous 2 was pulled out and an emergent fashion, using a GlideScope, re-intubation was done successfully with good color change and equal breath sounds bilaterally. CPR was resumed, we did obtain a sinus rhythm for about 20 seconds at 0444 with a good Doppler pulse over the right femoral area but again became bradycardic and asystolic again, subsequently he went back into PEA. Medications were administered as above, however ventilation oxygenation became an issue again as the patient appears to be completely plugged, significant thickened bloody secretions were suctioned from deep and, similar appearance secretions were noted on the tip of the previous endotracheal tube. An x-ray was done to ensure that he did not have a pneumothorax, this was reviewed by me, no pneumothorax noted as a trace pneumothorax had been previously being noted on the left upper chest. Resuscitation efforts continued until 5 am (30 min) at which point after talking to family over the phone Mrs Carballo the patient's mother, we stopped resuscitation efforts and the patient was pronounced. Family was invited into the hospital. Please refer to the code nursing sheet for details. Cause of multi organ failure, cardiorespiratory arrest. Case discussed with Dr. Milian Total critical care time including code management, family discussions, this note 60 minutes.
--- NOTE | 2023-02-18 05:28 | PM.DS ---
DS: Providers Provider Date of Service: 02/18/23 Date of admission: 02/04/23 19:11 Date of discharge: 02/18/23 Primary care physician: Olivier Amaral MD Consults: 02/13/23 06:23 Consult to Nephrology Stat Consulting Provider: [facility] Reason for consultation: Worsening renal failure Has provider been notified: Yes 02/14/23 03:35 Consult to Wound Care Routine Reason for consultation: Bilateral back rash and slit to coccyx Attending physician on discharge: Heraclio Marie Discharging clinician: Anthony Taylor DS: Diagnosis Discharge Diagnosis (1) Acute renal failure: Status: Acute DS: Summary Hospital Course Hospital Course: ADMISSION/DISCHARGE DIAGNOSIS: 1.? CARDIORESPIRATORY ARREST (x 2 ) 2.? MULTI ORGAN FAILURE 3.? ACUTE KIDNEY INJURY LIKELY DUE TO ATN VERSUS ISCHEMIC ATN IN NEED OF EMERGENT HEMODIALYSIS 4.? OLIGURIA 5.? SEVERE HYPERVOLEMIA 6.? ARDS 7.? ACUTE RHABDOMYOLYSIS 8.? SEVERE METABOLIC ACIDOSIS 9.? TRANSAMINITIS AND HISTORY OF ALCOHOL ABUSE WITH EVIDENCE OF CIRRHOTIC LIVER PER IMAGES 10.?? TOXIC ENCEPHALOPATHY 11.?? ACUTE DIFFUSE PER FACIAL THROMBOPHLEBITIS 12.?? ?ACUTE PANCREATITIS 13.?? HYPERTRIGLYCERIDEMIA 14.?? MULTIFOCAL BILATERAL LUNG PNEUMONIA 15.?? POLYSUBSTANCE ABUSE (POSITIVE FOR FENTANYL, BENZODIAZEPINES, MARIJUANA, COCAINE) 16.?? HISTORY OF EPILEPSY 17.?? 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 Patient was pronounced at 05:00 on 02/18/2023. 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 Patient had presented to the emergency room on 02/04/2023 after being found unresponsive on the ground by family members, the actual down time is unknown, the patient did receive Narcan on the field and is known that he had just been released from detox on the January.? At the time in the ER the patient had been incontinent and confused, restless but initially maintaining his own airway.? Several hours later and after being worked up initially treated, the patient had continued to be restless and agitated requiring intubation for airway protection. At the time his workup was significant for white count [id number], anion gap of 21, BUN of 31, creatinine of 3.40 F 2 with baseline creatinine of 1.09, lactic acid of 6.2, SAT of 2181 [place] 1316 [place] [id number] an a positive U tox screen for fentanyl, benzos, marijuana and cocaine.? Patient had been treated properly with per sepsis protocol received 4.5 L of fluid, broad-spectrum antibiotics, several sedating and antipsychotic agents including Haldol, Ativan, midazolam and Benadryl.? He did have a trauma survey including a head CT which showed no acute pathology rather sequela of prior bifrontal craniotomies and slight opacification of the left maxillary and right ethmoid sinuses.? Cervical spine CT was negative for fracture.? Chest CT however revealed multifocal bilateral infiltrates. Patient had been admitted to the ICU, given Keppra for possible seizures, IV fluids, broad-spectrum antibiotics and workup including hepatitis panel had been done, bicarb administration among other things.? In next few days, the patient has renal failure had improved but on 02/12/2023 his renal function started to deteriorate again; on 02/13/2023, he did suffer a hypoxic respiratory cardiac arrest during which ACLS protocol was followed and after 5 minutes of CPR and couple of doses of epinephrine administration, ROSC was regained; on 02/14/2023 his creatinine rise to 5.01, a dialysis catheter had been placed on the right IJ area the patient started receiving daily hemodialysis for the past 4 days given his significant renal failure, evidence of fluid overload or at least suspicion by generalized edema of his body and lung exam. Nephrology's input is appreciated and they thought that this is related to a acute tubular necrosis versus ischemia causing the above renal failure.? In addition the patient presented a significant clinical scenario of ARDS, most recently pancreatitis and difficulty with oxygenation.? Is seems that the patient was mucus plugging at times for secretions would be dislodged upon respiratory therapist performing suction and lavage, bloody and thick secretions were noted. Is worth noting that the initial blood cultures did not grow any organisms and this was the same for sputum culture.? In the last 24 hours however the patient developed a worsening WBC count, the thought of doing cultures again was discussed with Dr. Gonzalez as well as the possibility of a future bronchoscopy in case he has plugging did not improve, however as above mention, the patient had an unfortunate event of sudden hypoxia this morning leading to bradycardia and cardiac arrest.? Resuscitation efforts were performed for about 30 minutes but we were not able to get the heart rate back or to oxygenate the patient properly given the significant mucus plugging with significant evidence of fat throughout the endotracheal tube was removed and exchanged during the code. Time of 05:00, family was notified, currently they are in the hospital and I will have a discussion with them, subsequently allowing them to say their goodbyes.? My condolences will be expressed. Case discussed with Dr. Milian Total critical care time spent on this detailed discharge summary ?60 minutes. ? Time Attestation Discharge coordination time: Greater than 30 minutes Quality: Safe Use of Opioids Does Pt have an Active Cancer Diagnosis on the Problem List?: No Quality: Stroke Does the patient have a stroke diagnosis?: No Physical Exam Vital Signs: Vital Signs: Last Vital Signs Temp 100.0 F 02/18/23 04:00 Pulse 129 H 02/18/23 04:00 Resp 25 H 02/18/23 04:00 BP 114/54 L 02/18/23 04:00 Pulse Ox 88 L 02/18/23 04:00 O2 Del Method Mechanical Ventil ation 02/18/23 04:00 O2 Flow Rate 70 02/16/23 04:00 FiO2 100 02/18/23 04:00 BMI result Body Mass Index 36.9 DS: Data Data Completed and Pending Labs on day of discharge: Laboratory Results - last 24 hr 02/17/23 02/17/23 02/17/23 04:43 08:42 09:52 WBC RBC Hgb Hct MCV MCH MCHC RDW Plt Count MPV Immature Gran % (Auto) Neut % (Auto) Lymph % (Auto) [place] % (Auto) Eos % (Auto) Baso % (Auto) Lymph # (Auto) [place] # (Auto) Eos # (Auto) Baso # (Auto) Abs Immat Gran (auto) Absolute Neuts (auto) Absolute Nucleated RBC Nucleated RBC % (auto) Neutrophils % (Manual) 70 Band Neutrophils % 15 H Lymphocytes % (Manual) 6 L Monocytes % (Manual) 1 L Eosinophils % (Manual) 4 Basophils % (Manual) Metamyelocytes % 2 Myelocytes % 2 Promyelocytes % Abs Neuts (Manual) 19.5 H Lymphocytes # (Manual) 1.4 Monocytes # (Manual) 0.2 Eosinophils # (Manual) 0.9 H Basophils # (Manual) Metamyelocytes # 0.5 Myelocytes # 0.5 Promyelocytes # Nucleated RBCs 1 H Smudge Cells PRESENT Toxic Vacuolation PRESENT Platelet Estimate NORMAL Large Platelets PRESENT Plt Morphology Comment NOTED RBC Morphology NOTED Polychromasia 1+ (0-2) Hypochromasia Basophilic Stippling 1+ (0-2) Microcytosis Macrocytosis 1+ (5-14) Tear Drop Cells 1+ (0-2) Schistocytes VBG pH 7.24 L 7.25 L VBG pCO2 49 47 VBG pO2 62 42 VBG HCO3 21 L 21 L VBG O2 Saturation 84.0 63.0 VBG Base Excess -5.4 -5.6 Sodium 139 Potassium 4.5 Chloride 98 Carbon Dioxide 19 L Anion Gap 27 H BUN 69 H Creatinine 5.56 H* Estim Creat Clear Calc 24.7 Estimated GFR 12 POC Glucose Random Glucose 131 H Lactic Acid Calcium 8.5 Phosphorus Magnesium Total Bilirubin AST ALT Alkaline Phosphatase Total Protein Albumin Triglycerides 767 H Lipase Urine Color Urine Appearance Urine pH Ur Specific [place] Urine Protein Urine Glucose (UA) Urine Ketones Urine Blood Urine Nitrite Ur Leukocyte Esterase Urine RBC Urine WBC Ur Squamous Epith Cells Urine Bacteria Hyaline Casts Urine Yeast 02/17/23 02/17/23 02/17/23 15:13 15:39 19:35 WBC 35.1 H* RBC 3.19 L Hgb 9.5 L Hct 26.6 L MCV 83.4 MCH 29.8 MCHC 35.7 RDW 17.2 H Plt Count 312 MPV 11.0 Immature Gran % (Auto) Cancelled Neut % (Auto) Cancelled Lymph % (Auto) Cancelled [place] % (Auto) Cancelled Eos % (Auto) Cancelled Baso % (Auto) Cancelled Lymph # (Auto) Cancelled [place] # (Auto) Cancelled Eos # (Auto) Cancelled Baso # (Auto) Cancelled Abs Immat Gran (auto) Cancelled Absolute Neuts (auto) Cancelled Absolute Nucleated RBC 0.530 H Nucleated RBC % (auto) 1.5 H Neutrophils % (Manual) 78 H Band Neutrophils % 2 L Lymphocytes % (Manual) 12 L Monocytes % (Manual) 5 Eosinophils % (Manual) 1 Basophils % (Manual) 1 Metamyelocytes % Myelocytes % Promyelocytes % 1 Abs Neuts (Manual) 28.1 H Lymphocytes # (Manual) 4.2 Monocytes # (Manual) 1.8 H Eosinophils # (Manual) 0.4 Basophils # (Manual) 0.4 H Metamyelocytes # Myelocytes # Promyelocytes # 0.4 Nucleated RBCs 1 H Smudge Cells PRESENT Toxic Vacuolation Platelet Estimate NORMAL Large Platelets Plt Morphology Comment NORMAL RBC Morphology NOTED Polychromasia Hypochromasia 1+ (5-14) Basophilic Stippling 1+ (0-2) Microcytosis 2+ (15-30) Macrocytosis 1+ (5-14) Tear Drop Cells Schistocytes 1+ (0-2) VBG pH 7.31 L VBG pCO2 49 VBG pO2 40 VBG HCO3 25 VBG O2 Saturation 63.0 VBG Base Excess -0.9 Sodium 136 Potassium 4.4 Chloride 94 L Carbon Dioxide 21 L Anion Gap 25 H BUN 37 H Creatinine 4.10 H* Estim Creat Clear Calc 33.6 Estimated GFR 17 POC Glucose 125 H Random Glucose 114 Lactic Acid 1.4 Calcium 9.6 D Phosphorus 8.0 H Magnesium 2.5 Total Bilirubin 1.1 H AST 76 H ALT 107 H Alkaline Phosphatase 123 H Total Protein 9.3 H Albumin 4.1 Triglycerides Lipase 830 H Urine Color Urine Appearance Urine pH Ur Specific [place] Urine Protein Urine Glucose (UA) Urine Ketones Urine Blood Urine Nitrite Ur Leukocyte Esterase Urine RBC Urine WBC Ur Squamous Epith Cells Urine Bacteria Hyaline Casts Urine Yeast 02/17/23 02/17/23 02/17/23 19:52 21:11 22:10 WBC RBC Hgb Hct MCV MCH MCHC RDW Plt Count MPV Immature Gran % (Auto) Neut % (Auto) Lymph % (Auto) [place] % (Auto) Eos % (Auto) Baso % (Auto) Lymph # (Auto) [place] # (Auto) Eos # (Auto) Baso # (Auto) Abs Immat Gran (auto) Absolute Neuts (auto) Absolute Nucleated RBC Nucleated RBC % (auto) Neutrophils % (Manual) Band Neutrophils % Lymphocytes % (Manual) Monocytes % (Manual) Eosinophils % (Manual) Basophils % (Manual) Metamyelocytes % Myelocytes % Promyelocytes % Abs Neuts (Manual) Lymphocytes # (Manual) Monocytes # (Manual) Eosinophils # (Manual) Basophils # (Manual) Metamyelocytes # Myelocytes # Promyelocytes # Nucleated RBCs Smudge Cells Toxic Vacuolation Platelet Estimate Large Platelets Plt Morphology Comment RBC Morphology Polychromasia Hypochromasia Basophilic Stippling Microcytosis Macrocytosis Tear Drop Cells Schistocytes VBG pH VBG pCO2 VBG pO2 VBG HCO3 VBG O2 Saturation VBG Base Excess Sodium Potassium Chloride Carbon Dioxide Anion Gap BUN Creatinine Estim Creat Clear Calc Estimated GFR POC Glucose 121 H 135 H Random Glucose Lactic Acid Calcium Phosphorus Magnesium Total Bilirubin AST ALT Alkaline Phosphatase Total Protein Albumin Triglycerides Lipase Urine Color Dark Yellow Urine Appearance Cloudy Urine pH 5.5 Ur Specific [place] 1.020 Urine Protein 300 (3+) H Urine Glucose (UA) Negative Urine Ketones Negative Urine Blood Large (3+) H Urine Nitrite Negative Ur Leukocyte Esterase Moderate (2+) H Urine RBC >20 H Urine WBC 11-20 H Ur Squamous Epith Cells 0-2 Urine Bacteria None Seen Hyaline Casts 3-5 Urine Yeast Present 02/17/23 02/17/23 02/17/23 22:53 23:07 23:54 WBC RBC Hgb Hct MCV MCH MCHC RDW Plt Count MPV Immature Gran % (Auto) Neut % (Auto) Lymph % (Auto) [place] % (Auto) Eos % (Auto) Baso % (Auto) Lymph # (Auto) [place] # (Auto) Eos # (Auto) Baso # (Auto) Abs Immat Gran (auto) Absolute Neuts (auto) Absolute Nucleated RBC Nucleated RBC % (auto) Neutrophils % (Manual) Band Neutrophils % Lymphocytes % (Manual) Monocytes % (Manual) Eosinophils % (Manual) Basophils % (Manual) Metamyelocytes % Myelocytes % Promyelocytes % Abs Neuts (Manual) Lymphocytes # (Manual) Monocytes # (Manual) Eosinophils # (Manual) Basophils # (Manual) Metamyelocytes # Myelocytes # Promyelocytes # Nucleated RBCs Smudge Cells Toxic Vacuolation Platelet Estimate Large Platelets Plt Morphology Comment RBC Morphology Polychromasia Hypochromasia Basophilic Stippling Microcytosis Macrocytosis Tear Drop Cells Schistocytes VBG pH VBG pCO2 VBG pO2 VBG HCO3 VBG O2 Saturation VBG Base Excess Sodium Potassium Chloride Carbon Dioxide Anion Gap BUN Creatinine Estim Creat Clear Calc Estimated GFR POC Glucose 146 H 142 H 132 H Random Glucose Lactic Acid Calcium Phosphorus Magnesium Total Bilirubin AST ALT Alkaline Phosphatase Total Protein Albumin Triglycerides Lipase Urine Color Urine Appearance Urine pH Ur Specific [place] Urine Protein Urine Glucose (UA) Urine Ketones Urine Blood Urine Nitrite Ur Leukocyte Esterase Urine RBC Urine WBC Ur Squamous Epith Cells Urine Bacteria Hyaline Casts Urine Yeast 02/18/23 02/18/23 02/18/23 00:56 01:49 02:57 WBC RBC Hgb Hct MCV MCH MCHC RDW Plt Count MPV Immature Gran % (Auto) Neut % (Auto) Lymph % (Auto) [place] % (Auto) Eos % (Auto) Baso % (Auto) Lymph # (Auto) [place] # (Auto) Eos # (Auto) Baso # (Auto) Abs Immat Gran (auto) Absolute Neuts (auto) Absolute Nucleated RBC Nucleated RBC % (auto) Neutrophils % (Manual) Band Neutrophils % Lymphocytes % (Manual) Monocytes % (Manual) Eosinophils % (Manual) Basophils % (Manual) Metamyelocytes % Myelocytes % Promyelocytes % Abs Neuts (Manual) Lymphocytes # (Manual) Monocytes # (Manual) Eosinophils # (Manual) Basophils # (Manual) Metamyelocytes # Myelocytes # Promyelocytes # Nucleated RBCs Smudge Cells Toxic Vacuolation Platelet Estimate Large Platelets Plt Morphology Comment RBC Morphology Polychromasia Hypochromasia Basophilic Stippling Microcytosis Macrocytosis Tear Drop Cells Schistocytes VBG pH VBG pCO2 VBG pO2 VBG HCO3 VBG O2 Saturation VBG Base Excess Sodium Potassium Chloride Carbon Dioxide Anion Gap BUN Creatinine Estim Creat Clear Calc Estimated GFR POC Glucose 120 H 105 117 H Random Glucose Lactic Acid Calcium Phosphorus Magnesium Total Bilirubin AST ALT Alkaline Phosphatase Total Protein Albumin Triglycerides Lipase Urine Color Urine Appearance Urine pH Ur Specific [place] Urine Protein Urine Glucose (UA) Urine Ketones Urine Blood Urine Nitrite Ur Leukocyte Esterase Urine RBC Urine WBC Ur Squamous Epith Cells Urine Bacteria Hyaline Casts Urine Yeast 02/18/23 02/18/23 03:51 04:47 WBC RBC Hgb Hct MCV MCH MCHC RDW Plt Count MPV Immature Gran % (Auto) Neut % (Auto) Lymph % (Auto) [place] % (Auto) Eos % (Auto) Baso % (Auto) Lymph # (Auto) [place] # (Auto) Eos # (Auto) Baso # (Auto) Abs Immat Gran (auto) Absolute Neuts (auto) Absolute Nucleated RBC Nucleated RBC % (auto) Neutrophils % (Manual) Band Neutrophils % Lymphocytes % (Manual) Monocytes % (Manual) Eosinophils % (Manual) Basophils % (Manual) Metamyelocytes % Myelocytes % Promyelocytes % Abs Neuts (Manual) Lymphocytes # (Manual) Monocytes # (Manual) Eosinophils # (Manual) Basophils # (Manual) Metamyelocytes # Myelocytes # Promyelocytes # Nucleated RBCs Smudge Cells Toxic Vacuolation Platelet Estimate Large Platelets Plt Morphology Comment RBC Morphology Polychromasia Hypochromasia Basophilic Stippling Microcytosis Macrocytosis Tear Drop Cells Schistocytes VBG pH VBG pCO2 VBG pO2 VBG HCO3 VBG O2 Saturation VBG Base Excess Sodium Potassium Chloride Carbon Dioxide Anion Gap BUN Creatinine Estim Creat Clear Calc Estimated GFR POC Glucose 116 H 89 Random Glucose Lactic Acid Calcium Phosphorus Magnesium Total Bilirubin AST ALT Alkaline Phosphatase Total Protein Albumin Triglycerides Lipase Urine Color Urine Appearance Urine pH Ur Specific [place] Urine Protein Urine Glucose (UA) Urine Ketones Urine Blood Urine Nitrite Ur Leukocyte Esterase Urine RBC Urine WBC Ur Squamous Epith Cells Urine Bacteria Hyaline Casts Urine Yeast Discharge Plan Discharge Date/Time: 02/18/23 05:30 Patient Disposition: Discharge Diagnosis: multiorgan failure / cardio respiratory arrest Referrals: Olivier Amaral MD [Primary Care Provider] - 1 Week Discharge Medications: No Action clonidine HCl 0.1 mg tablet 0.1 mg PO BID levetiracetam 500 mg tablet 500 mg PO BID diltiazem HCl 240 mg capsule,extended release 24hr 240 mg PO DAILY quetiapine 200 mg tablet 200 mg PO BEDTIME trazodone 100 mg tablet 100 mg PO BEDTIME sertraline 50 mg tablet 150 mg PO DAILY buspirone 15 mg tablet 15 mg PO TID quetiapine 50 mg tablet 75 mg PO DAILY
--- NOTE | 2023-02-18 05:54 | PC.NURSE ---
At approx 0430- pt suddenly becoming hypoxic, SpO2 75-80% via 100% FiO2 on vent, RR 30s. RT notified and to bedside, attempted to bag/lavage pt, unable to completely pass inline suction catheter. ECHO Taylor notified- orders to give versed 4 mg IVP with no effect. HR dropping from 130s to 60s then ultimately asystole at 0438. Code blue initiated- see paper documentation. TOD at 0500. NEDs called, see EMR. Post mortem care done. Family to bedside at approx 0600, pt belongings given.
--- NOTE | 2023-02-18 05:57 | W.PM.CCHP ---
Procedures Date of Service Date of Service: 02/18/23 Intubation Intubation Comments: Re-intubation exchange of previous endotracheal tube during code blue as the [address] appeared to be completely plugged Consent for Procedure: Emergent-no informed consent obtained Time out performed: No Sedative: none Laryngoscope: fiber optic video scope ET tube size: 8 ET tube uncuffed: Yes Tube secured depth (cm): 26 Tube secured location: lips Tube placement confirmation: visualized tube passing through cords, equal breath sounds bilaterally, no breath sounds over epigastrium and confirmation by capnometry Patient tolerated procedure: well, no complications and other (CXR shows tip of ETT at 6cm above the va, no Pneumothorax) Intubation complications: none
--- NOTE | 2023-02-18 06:30 | PC.RT ---
I was called to pt's room due to decreasing SaO2, pt rapidly became unable to ventilate even with ambu bag, tried suctioning with and without lavage, tube was pulled and PA re intubated pt with a 8 tube-28 at the lip, still not able to effectually ventilate pt
--- NOTE | 2023-02-18 08:38 | PC.NURSE ---
Pt family visits continue.
== END 2023-02-18 11:30 | disposition expired | DRG 917 ==
LOC: HO.ED 18:43 → HO.EDOVER 19:26 → HO.ICU 19:28
PROVIDERS: Internal Medicine Pulmonary Disease; Physician Assistant; Physician Assistant Medical; Registered Nurse Community Health; Admitting Provider Nurse Practitioner Family; Emergency Provider Internal Medicine; PCP Internal Medicine; Visit Provider Internal Medicine Critical Care Medicine
DX: T50.911A Poisoning by multiple unspecified drugs, medicaments and biological substances, accidental (unintentional), initial encounter (principal); G92.8 Other toxic encephalopathy; J69.0 Pneumonitis due to inhalation of food and vomit; J80 Acute respiratory distress syndrome; N17.0 Acute kidney failure with tubular necrosis; M62.82 Rhabdomyolysis; E87.20 Acidosis, unspecified; E66.01 Morbid (severe) obesity due to excess calories; Z68.36 Body mass index [BMI] 36.0-36.9, adult; I80.8 Phlebitis and thrombophlebitis of other sites; Z87.820 Personal history of traumatic brain injury; I46.9 Cardiac arrest, cause unspecified; G40.909 Epilepsy, unspecified, not intractable, without status epilepticus; E86.0 Dehydration; F19.10 Other psychoactive substance abuse, uncomplicated; Z79.899 Other long term (current) drug therapy
CPT/HCPCS: 36415; 36600; 70450; 70486; 71045; 71250; 71260; 72125; 74176; 80048; 80053; 80307; 81001; 81003; 82040; 82140; 82272; 82550; 82803; 82947; 83605; 83690; 83735; 83880; 84100; 84478; 84484; 85007; 85025; 85027; 85610; 85730; 86704; 86706; 86803; 86850; 86900; 86901; 86923; 87040; 87070; 87205; 87340; 90999; 93005; 93306; 93971; 94002; 94003; 94640; 94660; 99285; C1758; C9113; J0131; J0171; J0295; J0613; J0692; J0696; J1200; J1205; J1630; J1644; J1805; J1836; J1940; J1953; J1956; J2060; J2250; J2251; J2543; J2704; J3010; J3370; J3480; J7120; P9016; P9047; Q9967

== ENCOUNTER 2023-02-04 19:11 | Outpatient (BNV) | payer MEDICARE, SELFPAY | END 2023-02-13 05:35 | PROVIDERS: Admitting Provider Nurse Practitioner Family; Emergency Provider Internal Medicine; PCP Internal Medicine; Visit Provider Internal Medicine Cardiovascular Disease | DX: R00.0 Tachycardia, unspecified (principal); R94.31 Abnormal electrocardiogram [ECG] [EKG] | CPT/HCPCS: 93010 ==

== ENCOUNTER 2023-02-04 19:11 | Outpatient (BNV) | payer MEDICARE, SELFPAY | END 2023-02-04 21:22 | PROVIDERS: Admitting Provider Nurse Practitioner Family; Emergency Provider Internal Medicine; Visit Provider Internal Medicine | DX: R00.0 Tachycardia, unspecified (principal) | CPT/HCPCS: 93010 ==

== ENCOUNTER 2023-02-04 19:11 | Outpatient (BNV) | payer MEDICARE, SELFPAY | END 2023-02-15 07:00 | PROVIDERS: Admitting Provider Nurse Practitioner Family; Emergency Provider Internal Medicine; PCP Internal Medicine; Visit Provider Internal Medicine Cardiovascular Disease | DX: M62.82 Rhabdomyolysis (principal) | CPT/HCPCS: 93306 ==

== ENCOUNTER → 2023-02-04 19:11 | Outpatient (BNV) | payer MEDICARE, SELFPAY | PROVIDERS: Admitting Provider Nurse Practitioner Family; Emergency Provider Internal Medicine; Visit Provider Nurse Practitioner Family | DX: N17.9 Acute kidney failure, unspecified (principal); J69.0 Pneumonitis due to inhalation of food and vomit; M62.82 Rhabdomyolysis | CPT/HCPCS: 31500; 36556; 99291; 99292 ==

== ENCOUNTER → 2023-02-04 19:11 | Outpatient (BNV) | payer MEDICARE, SELFPAY | PROVIDERS: Admitting Provider Nurse Practitioner Family; Emergency Provider Internal Medicine; PCP Internal Medicine; Visit Provider Internal Medicine Nephrology | DX: N17.0 Acute kidney failure with tubular necrosis (principal) | CPT/HCPCS: 99222; 99232; 99499 ==

== ENCOUNTER → 2023-02-04 19:11 | Outpatient (BNV) | payer MEDICARE, SELFPAY | PROVIDERS: Admitting Provider Nurse Practitioner Family; Emergency Provider Internal Medicine; Visit Provider Internal Medicine Pulmonary Disease | DX: I46.9 Cardiac arrest, cause unspecified (principal); J80 Acute respiratory distress syndrome; F19.10 Other psychoactive substance abuse, uncomplicated; R56.9 Unspecified convulsions; N17.9 Acute kidney failure, unspecified | CPT/HCPCS: 31500; 99291 ==